=== PATIENT | female | born 1935 | race Caucasian/White ===

== ENCOUNTER 2018-08-19 18:35 | Emergency (ER) | payer MEDICARE, OTHER, SELFPAY ==
[2018-08-19 18:41] VITALS: BP 103/61; PULSE 72; RESP 18; TEMP 36.6; O2SAT 94
--- NOTE | 2018-08-19 18:50 | DI.CT.S_ITS ---
PROCEDURE: CT CERVICAL SPINE WO CON INDICATIONS: intoxicated with fall] TECHNIQUE: Noncontrast 3 mm thick sections acquired from the skull base to the T4 level. Sagittal and coronal reformats were then constructed. For radiation dose reduction, the following was used: automated exposure control, adjustment of mA and/or kV according to patient size. COMPARISON: [facility], CERVICAL SPINE 2 OR 3 VIEWS, 02/23/2017, 11:43. FINDINGS: Image quality: Excellent. Bones: No fractures or dislocations. There is severe degenerative disc disease in cervical spine. Visualized superior ribs are intact. Soft tissues: Prevertebral soft tissues are normal in thickness. No paravertebral hematomas. No apical pneumothoraces. Opacification of the right maxillary sinus consistent with sinusitis. IMPRESSION: No fractures. Severe degenerative disc cisting cervical spine. Dictated by: Jf Patel M.D. on 08/19/2018 at 20:11 Approved by: Jf Patel M.D. on 08/19/2018 at 20:16
--- NOTE | 2018-08-19 18:50 | DI.CT.S_ITS ---
PROCEDURE: CT HEAD/BRAIN WO CON INDICATIONS: intoxicated with fall TECHNIQUE: Noncontrast 4.5 mm thick angled axial sections acquired from the foramen magnum to the vertex, with coronal and sagittal reformats. For radiation dose reduction, the following was used: automated exposure control, adjustment of mA and/or kV according to patient size. COMPARISON: [facility], MR, STROKE PROTOCOL, 02/20/2017, 14:19. [facility], CT, HEAD WITHOUT CONTRAST, 02/20/2017, 12:49. [facility], CT, HEAD WITHOUT CONTRAST, 02/22/2017, 10:53. FINDINGS: Image quality: Excellent. CSF spaces: Basal cisterns are patent. No extra-axial fluid collections. The ventricles are symmetrically dilated but stable in size and shape. Brain: No intracranial bleeds or masses. There is cerebral volume loss for age, with resultant ventricular and sulcal prominence. There are periventricular and deep white matter chronic small vessel ischemic changes. There is intracranial internal carotid artery atherosclerosis. Skull and face: Calvarium and visualized facial bones appear intact, without suspicious lesions. There is right frontal scalp contusion. Sinuses: The mastoids are clear. The right maxillary sinus is opacified. IMPRESSION: 1. No acute intracranial abnormalities. 2. Cerebral volume loss and chronic microvascular ischemic changes. 3. Right frontal scalp contusion. 4. Right maxillary sinus opacification consistent with sinusitis. Dictated by: Jf Patel M.D. on 08/19/2018 at 20:08 Approved by: Jf Patel M.D. on 08/19/2018 at 20:11
--- NOTE | 2018-08-19 19:21 | ED_ITS ---
HPI - Fall General Chief Complaint: Fall Stated Complaint: Fall hit right side of head, arm, and ankle Time Seen by Provider: 08/19/18 19:20 Source: patient and family Mode of arrival: ambulatory Limitations: no limitations History of Present Illness HPI Narrative: 82-year-old female who arrived to the emergency department by private vehicle with friends for reports of a fall. Patient is intoxicated. She does admit to drinking alcohol. She states that she drinks alcohol on a daily basis. His reported that she fell at home. It was unwitnessed. Her friends state that she has fallen in the past and most the time it is when she is drinking. She did have a bump on the right side of her head and also a skin tear on her right elbow and abrasion on her right ankle. Patient was ambulatory. A cervical collar was placed in triage. Related Data Home Medications Medication Instructions Recorded Confirmed multivitamin [Multiple Vitamins] 1 tab PO QDAY #0 08/13/16 06/27/18 lisinopril 10 mg tablet 10 mg PO DAILY 06/27/18 Previous Rx's Medication Instructions Recorded acetaminophen 325 - 650 mg PO Q6HP PRN 30 Days #0 02/26/17 estradiol 0.01% (0.1 mg/gram) See Rx Instructions VAG BEDTIME 03/25/18 vaginal cream #42.5 gram diphenoxylate-atropine 2.5 1 tab PO Q6HP PRN #120 tab 04/27/18 mg-0.025 mg tablet acyclovir 400 mg tablet 400 mg PO DAILY PRN #30 tab 06/27/18 ciprofloxacin 500 mg tablet 500 mg PO Q12H #20 tab 06/27/18 diazepam 5 mg tablet 5 mg PO BEDTIME PRN #30 tab 06/27/18 escitalopram 10 mg tablet 15 mg PO DAILY #135 tab 06/27/[address] - ER 3 mg 9 mg PO DAILY #90 each 07/13/18 capsule,delayed,extended release bupropion HCl XL 150 mg 24 hr 150 mg PO BID #180 tab 07/20/18 tablet, extended release Allergies Allergy/AdvReac Type Severity Reaction Status Date / Time No Known Drug Allergies Allergy Unverified 06/27/18 10:15 Review of Systems Constitutional Denies fever(s) and Denies headache(s) ENT Ears, Nose, Mouth, and Throat: Denies vertigo, Denies dizziness and Denies headache(s) Cardiovascular Denies chest pain and Denies dyspnea Respiratory Denies dyspnea Gastrointestinal Gastrointestinal: Denies abdominal pain, Denies nausea and Denies vomiting Musculoskeletal Denies myalgias and Denies arthralgias Integumentary/Breasts Comments: Right elbow skin tear and abrasion to right elbow bruise to right forehead Neurologic Denies vertigo, Denies dizziness and Denies headache(s) Hematologic/Lymphatic Denies easy bleeding and Denies easy bruising Exam Initial Vital Signs Initial Vital Signs: Vital Signs Temperature 97.9 F 08/19/18 18:41 Pulse Rate 72 08/19/18 18:41 Respiratory Rate 18 08/19/18 18:41 Blood Pressure 103/61 08/19/18 18:41 Pulse Oximetry 94 08/19/18 18:41 Const General: cooperative, comfortable, well developed, well groomed and No acute distress Orientation: alert and awake HENMS Head: other (Bruise to the right forehead) Eyes Pupils: PERRL EOM: EOM intact bilaterally Resp Effort & Inspection: normal respiratory effort Auscultation: clear to auscultation bilaterally Cardio Rate: regular rate Rhythm: regular rhythm GI Inspection: non-distended Palpation: soft Skin Other: Bruise to the right forehead. A small skin tear to the lateral aspect of the right elbow. A small abrasion to the lateral malleolus of the right ankle Neuro General: alert and awake Speech: speech normal Gait: normal gait Motor: muscle tone normal throughout Sensory Exam: no sensory deficits noted Extrem General: normal to inspection and capillary refill normal Other: Full range of motion of upper and lower extremities t Psych Appearance: grossly normal and well kempt [facility] Medical History Breast cancer (Chronic ~2001) Collagenous colitis (Chronic ~2003) Depression (Chronic ~1999) Fecal incontinence (Chronic ~1999) Headache (Chronic) Osteoarthritis (Chronic) Osteopenia (Chronic) Osteoporosis (Chronic) Recurrent sinusitis (Chronic) Seasonal allergies (Chronic) Chicken pox (Resolved) Measles (Resolved) Mumps (Resolved) Social History Smoking Status: Never smoker second hand exposure: No alcohol intake: current (2 glasses of wine a day.) substance use type: does not use Social History Smoking Status: Never smoker second hand exposure: No alcohol intake: current (2 glasses of wine a day.) substance use type: does not use Course Orders Ordered: ED Orders 08/19/18 18:50 CT cervical spine wo con Stat CT head/brain wo con Stat EKG-12 Lead Stat Vital Signs - 8 hr 08/19/18 18:41 08/19/18 19:48 08/19/18 20:35 Temperature 97.9 F Pulse Rate 72 67 73 Respiratory Rate 18 15 15 Blood Pressure 103/61 Blood Pressure [Left Arm] 108/67 105/53 L Pulse Oximetry 94 97 96 MDM - Fall Imaging Data CT scan - head: Radiologist's impression: [address] [address] [address] Scan Report Signed Patient: Concepcion Berumen MMR#: [id number] : 8Acct:[id number] Age/Sex: 82 / FDate of Service: 08/19/18 Loc: ED Accession Number: [id number] Procedure: CT head/brain wo con Ordering Provider: Jose Fragoso D.O. PROCEDURE: CT HEAD/BRAIN WO CON INDICATIONS: intoxicated with fall TECHNIQUE: Noncontrast 4.5 mm thick angled axial sections acquired from the foramen magnum to the vertex, with coronal and sagittal reformats. For radiation dose reduction, the following was used: automated exposure control, adjustment of mA and/or kV according to patient size. COMPARISON: [facility], MR, STROKE PROTOCOL, 02/20/2017, 14:19. [facility], CT, HEAD WITHOUT CONTRAST, 02/20/2017, 12:49. [facility], CT, HEAD WITHOUT CONTRAST, 02/22/2017, 10:53. FINDINGS: Image quality: Excellent. CSF spaces: Basal cisterns are patent. No extra-axial fluid collections. The ventricles are symmetrically dilated but stable in size and shape. Brain: No intracranial bleeds or masses. There is cerebral volume loss for age, with resultant ventricular and sulcal prominence. There are periventricular and deep white matter chronic small vessel ischemic changes. There is intracranial internal carotid artery atherosclerosis. Skull and face: Calvarium and visualized facial bones appear intact, without suspicious lesions. There is right frontal scalp contusion. Sinuses: The mastoids are clear. The right maxillary sinus is opacified. IMPRESSION: 1. No acute intracranial abnormalities. 2. Cerebral volume loss and chronic microvascular ischemic changes. 3. Right frontal scalp contusion. 4. Right maxillary sinus opacification consistent with sinusitis. Dictated by: Jf Patel M.D. on 08/19/2018 at 20:08 Approved by: Jf Patel M.D. on 08/19/2018 at 20:11 CT cervical spine: Radiologist's impression: [place] [address] CT Scan Report Signed Patient: Concepcion Berumen MMR#: [id number] : 8Acct:[id number] Age/Sex: 82 / FDate of Service: 08/19/18 Loc: ED Accession Number: [id number] Procedure: CT cervical spine wo con Ordering Provider: Jose Fragoso D.O. PROCEDURE: CT CERVICAL SPINE WO CON INDICATIONS: intoxicated with fall] TECHNIQUE: Noncontrast 3 mm thick sections acquired from the skull base to the T4 level. Sagittal and coronal reformats were then constructed. For radiation dose reduction, the following was used: automated exposure control, adjustment of mA and/or kV according to patient size. COMPARISON: [facility], CERVICAL SPINE 2 OR 3 VIEWS, 02/23/2017, 11:43. FINDINGS: Image quality: Excellent. Bones: No fractures or dislocations. There is severe degenerative disc disease in cervical spine. Visualized superior ribs are intact. Soft tissues: Prevertebral soft tissues are normal in thickness. No paravertebral hematomas. No apical pneumothoraces. Opacification of the right maxillary sinus consistent with sinusitis. IMPRESSION: No fractures. Severe degenerative disc cisting cervical spine. Dictated by: Jf Patel M.D. on 08/19/2018 at 20:11 Approved by: Jf Patel M.D. on 08/19/2018 at 20:16 ECG Data Attestation: I personally reviewed and interpreted this ECG as follows: Prior ECG tracings: not available for review Interpretation: Sinus rhythm Ventricular rate is 66 Left axis deviation Normal QRS Normal QTC No ST T wave changes MDM Narrative Medical decision making narrative: Patient is obviously intoxicated. Cervical collar was removed after the negative CT scan. She does have a skin tear to her right elbow which did needs no intervention here in the ER. Has a small abrasion to the right ankle which also needs no intervention. She is moving all 4 extremities. She does have a ride home with her friend who is at bedside. She was informed that she cannot drive. She expressed understanding and agreement plan. Discharge Plan Departure Patient Disposition: Home Clinical Impression: Abrasion of skin, Skin tear Contusion of head Qualifiers: Encounter type: initial encounter Contusion of head detail: scalp Qualified Code(s): S00.03XA - Contusion of scalp, initial encounter Alcohol intoxication Qualifiers: Complication of substance-induced condition: uncomplicated Qualified Code(s): F10.920 - Alcohol use, unspecified with intoxication, uncomplicated Fall Qualifiers: Encounter type: initial encounter Qualified Code(s): W19.XXXA - Unspecified fall, initial encounter Discharge Date/Time: 08/19/18 21:31 Interventions: ED Discharge Assessment Last Done: 08/19/18 21:29 Instructions: Contusion, Concussion, DI for Alcohol Abuse Activity Restrictions/Additional Instructions: You can shower like normal. You can sleep and eat like normal. Keep the wounds on your right elbow and ankle clean with soap and water. No driving for the next 24 hours or in the future if you partake in intoxicating substances. Call your primary care doctor for a follow-up. Prescriptions: No Action diphenoxylate-atropine 2.5-0.025 mg tablet 1 tab PO Q6HP PRN (Reason: diarrhea) Qty: 120 RF: 3 escitalopram oxalate 10 mg tablet 15 mg PO DAILY Qty: 135 RF: 1 acyclovir 400 mg tablet 400 mg PO DAILY PRN (Reason: recurrent sacral herpes) Qty: 30 RF: 1 ciprofloxacin HCl 500 mg tablet 500 mg PO Q12H Qty: 20 RF: 0 lisinopril 10 mg tablet 10 mg PO DAILY RF: 0 diazepam 5 mg tablet 5 mg PO BEDTIME PRN (Reason: insomnia) Qty: 30 RF: 0 multivitamin [Multiple Vitamins] 1 EACH tablet 1 tab PO QDAY Qty: 0 RF: 0 acetaminophen 325 MG tablet 325 - 650 mg PO Q6HP PRN30 Days Qty: 0 RF: 0 estradiol 0.01 % (0.1 mg/gram) cream See Rx Instructions VAG BEDTIME Qty: 42.5 RF: 3 budesonide 3 mg capsule,delayed,extend.release 9 mg PO DAILY Qty: 90 RF: 3 bupropion HCl 150 mg tablet extended release 24 hr 150 mg PO BID Qty: 180 RF: 3 Referrals: Kelli James PA-C [Primary Care Provider] -
[2018-08-19 19:48] VITALS: BP 108/67; PULSE 67; RESP 15; O2SAT 97
[2018-08-19 20:35] VITALS: BP 105/53; PULSE 73; RESP 15; O2SAT 96
== END 2018-08-19 21:31 | disposition home or self-care (01) ==
PROVIDERS: Emergency Provider Emergency Medicine; PCP Physician Assistant
DX: S00.03XA Contusion of scalp, initial encounter (principal); S90.511A Abrasion, right ankle, initial encounter; S51.011A Laceration without foreign body of right elbow, initial encounter; F10.920 Alcohol use, unspecified with intoxication, uncomplicated; W19.XXXA Unspecified fall, initial encounter
CPT/HCPCS: 70450; 72125; 93005; 99283; 99284

== ENCOUNTER 2019-06-01 10:44 | Emergency (ER) | payer MEDICARE, OTHER, SELFPAY ==
--- NOTE | 2019-06-01 10:46 | DI.RAD.S_ITS ---
PROCEDURE: XR SHOULDER RT MIN 2V INDICATIONS: fall 3 days ago TECHNIQUE: 2 views of the shoulder were acquired. COMPARISON: None. FINDINGS: Bones: There is a mild comminuted fracture of the right humeral head and neck. There is associated mild impaction of the humeral shaft component. No definite extension to the articular surface of the glenohumeral joint. Deformity of the distal clavicle is noted compatible with sequela of a prior fracture. Visualized ribs appear intact. Soft tissues: No suspicious soft tissue calcifications. There are multiple surgical clips in the right chest wall. IMPRESSION: 1. Mildly impacted and comminuted fracture of the right humeral head and neck. Dictated by: Edward Jones M.D. on 06/01/2019 at 12:25 Approved by: Edward Jones M.D. on 06/01/2019 at 12:37
--- NOTE | 2019-06-01 10:52 | DI.CT.S_ITS ---
PROCEDURE: CT HEAD/BRAIN WO CON INDICATIONS: fall a few days ago TECHNIQUE: Noncontrast 4.5 mm thick angled axial sections acquired from the foramen magnum to the vertex, with coronal and sagittal reformats. For radiation dose reduction, the following was used: automated exposure control, adjustment of mA and/or kV according to patient size. COMPARISON: [facility], CT, HEAD WITHOUT CONTRAST, 02/22/2017, 10:53. [facility], CT, HEAD WITHOUT CONTRAST, 02/20/2017, 12:49. [facility], CT, CT HEAD/BRAIN WO CON, 08/19/2018, 19:15. [facility], CT, CT FACIAL BONES WO CON, 06/01/2019, 11:19. FINDINGS: Image quality: Excellent. CSF spaces: Basal cisterns are patent. No extra-axial fluid collections. The ventricles are dilated but symmetric in size and shape. Ventricular dilatation appears stable since 2006. Brain: No intracranial bleeds or masses. There is moderate cerebral volume loss for age, with resultant ventricular and sulcal prominence. There are [id number] periventricular and deep white matter chronic small vessel ischemic changes. There is intracranial internal carotid artery atherosclerosis. Skull and face: Calvarium and visualized facial bones appear intact, without suspicious lesions. Mild right frontal scalp contusion. Sinuses: Trace fluid or mild mucosal thickening in the dependent right extra sinus. The mastoids are clear. IMPRESSION: 1. No acute intracranial abnormalities. 2. Cerebral volume loss and chronic microvascular ischemic changes. 3. Ventricular dilation may be secondary to central atrophy. A differential diagnosis is normal pressure hydrocephalus. Recommend clinical correlation. Dictated by: Jf Patel M.D. on 06/01/2019 at 11:40 Approved by: Jf Patel M.D. on 06/01/2019 at 11:45
--- NOTE | 2019-06-01 10:55 | ED.GENADULT ---
HPI - General Adult General Chief complaint: Trauma Stated complaint: GLF on Wednesday Right shoulder injury Time Seen by Provider: 06/01/19 10:46 Source: patient and EMS Mode of arrival: EMS Limitations: no limitations History of Present Illness HPI narrative: Patient is an 83-year-old female. Arrived by EMS for evaluation of injuries that she sustained after potentially falling 3 days ago. Patient states that she does not remember falling. Does not remember hitting her head. She is unsure how long she has been on the ground but potentially it has been 3 days. She states that she hurt her shoulder and that is the reason why she could not get up off the floor. This morning she was able to crawl on the floor to the phone. Called her son who called EMS. EMS arrived at the house and did find her on the floor. Bruising around the right shoulder around the right eye. She was alert and oriented upon their arrival. No reports of anticoagulation. Patient's only complaint is right shoulder pain. Related Data Home Medications Medication Instructions Recorded Confirmed multivitamin [Multiple Vitamins] 1 tab PO QDAY #0 08/13/16 06/27/18 lisinopril 10 mg tablet 10 mg PO DAILY 06/27/18 Previous Rx's Medication Instructions Recorded acetaminophen 325 - 650 mg PO Q6HP PRN 30 Days #0 02/26/17 estradiol See Rx Instructions VAG BEDTIME 03/25/18 #42.5 gram acyclovir 400 mg tablet 400 mg PO DAILY PRN #30 tab 06/27/18 bupropion HCl 150 mg 24 hr tablet, 150 mg PO BID #180 tab 09/02/18 extended release diazepam 5 mg tablet 5 mg PO BEDTIME PRN #30 tab 09/05/18 budesonide 3 mg 9 mg PO DAILY #90 each 01/02/19 capsule,delayed,extended release escitalopram oxalate 10 mg tablet 15 mg PO DAILY #135 tab 01/10/19 diphenoxylate-atropine 2.5 1 tab PO Q6HP PRN #120 tab 05/04/19 mg-0.025 mg tablet hydrocodone-acetaminophen [[place]] 1 tab PO Q8H PRN #10 tab 06/01/19 Allergies Allergy/AdvReac Type Severity Reaction Status Date / Time No Known Drug Allergies Allergy Unverified 06/27/18 10:15 Review of Systems Constitutional Constitutional: Denies fatigue, Denies fever(s) and Denies headache(s) Eyes Eyes: Denies change in vision ENT Ears, Nose, Mouth, and Throat: Denies vertigo, Denies dizziness, Denies headache(s) and Denies disequilibrium Cardiovascular Cardiovascular: Denies chest pain, Denies rapid heart rate, Denies edema, Denies palpitations and Denies dyspnea Respiratory Respiratory: Denies cough and Denies dyspnea Gastrointestinal Gastrointestinal: Denies abdominal pain, Denies nausea and Denies vomiting Musculoskeletal Comments: Right shoulder pain Integumentary/Breasts Comments: Bruising around the right eye in the right shoulder Neurologic Neurologic: Denies behavioral changes, Reports confusion, Denies vertigo, Denies dizziness, Denies headache(s), Reports memory loss, Denies paresthesias and Denies disequilibrium Psychiatric Psychiatric: Denies behavioral changes, Reports confusion and Reports memory loss Endocrine Endocrine: Denies fatigue and Denies palpitations Hematologic/Lymphatic Hematologic/Lymphatic: Denies easy bleeding and Denies easy bruising Patient History Medical History Breast cancer (Chronic ~2001) Chicken pox (Resolved) Collagenous colitis (Chronic ~2003) Depression (Chronic ~1999) Fecal incontinence (Chronic ~1999) Headache (Chronic) Measles (Resolved) Mumps (Resolved) Osteoarthritis (Chronic) Osteopenia (Chronic) Osteoporosis (Chronic) Recurrent sinusitis (Chronic) Seasonal allergies (Chronic) Social History Smoking Status: Never smoker second hand exposure: No alcohol intake: current (2 glasses of wine a day.) substance use type: does not use Smoking Status: Never smoker alcohol intake frequency: 3 or more drinks per day Exam Initial Vital Signs Initial Vital Signs: Vital Signs Temperature 97.9 F 06/01/19 11:00 Pulse Rate 65 06/01/19 11:00 Respiratory Rate 18 06/01/19 11:00 Blood Pressure 172/74 H 06/01/19 11:00 Pulse Oximetry 99 06/01/19 11:00 Const General: cooperative, disheveled, No ill appearing and No intoxicated appearing Other: Smells of urine HENMT Head: contusion (Around right eye) Eyes Pupils: PERRL Other: Tenderness to palpation around the right orbital rim Resp Effort & Inspection: normal respiratory effort Auscultation: clear to auscultation bilaterally Cardio Rate: regular rate Rhythm: regular rhythm Pulses: dorsalis pedis present on the right GI Inspection: non-distended Palpation: soft, No firm and No tender Back/Spine/Pelvis Cervical Spine: No collar present and No cervical spinal tenderness Thoracic/Lumbar Spine: No thoracic spinal tenderness and No lumbar spinal tenderness Skin Other: Bruising around the right eye and on the right zoroastrianism. Has significant bruising around the right shoulder and down the right upper arm. Has blanchable redness over her sacrum. Neuro General: alert, awake and oriented x3 Cognition: normal cognition Speech: speech normal Sensory Exam: no sensory deficits noted Extrem Other: Tenderness to palpation with the right shoulder. Right elbow unremarkable. Wrist unremarkable. Pelvis unremarkable. Able to remove both lower extremities without any pain. Left upper extremity unremarkable. Psych Appearance: grossly normal and disheveled Procedures Orthopedic Splinting/Casting Injury #1: Side: right Upper Extremity Injury Location: shoulder Upper Extremity Immobilizer: sling/shoulder immobilizer Post splinting neuro exam: intact Post splinting vascular exam: intact Placed by: Nursing Scores GCS [place] coma scale eye opening: Spontaneous Luma coma scale verbal response: Orientated [place] coma scale motor response: Obey commands Luma coma scale total score: 15 Course Orders Ordered: ED Orders 06/01/19 10:46 XR shoulder RT min 2V Stat 06/01/19 10:47 Urine Drug Screen, Rapid Stat 06/01/19 10:48 EKG-12 Lead Stat 06/01/19 10:52 CT head/brain wo con Stat 06/01/19 10:54 CT facial bones wo con Stat 06/01/19 10:55 XR humerus RT 2V Stat 06/01/19 11:14 Complete Blood Count AUTO DIFF Stat Comprehensive Metabolic Panel Stat Creatine Kinase Stat Ethanol (ETOH) Stat Lipase Stat Magnesium Stat Partial Thromboplastin Time Stat Phosphorous Stat Procalcitonin Stat Prothrombin Time INR Stat 06/01/19 11:51 Consult to [employer] - [employer] Analyst Stat 06/01/19 12:27 XR hand LT min 3V Stat Discontinued Medications Hydrocodone Bitart/Acetaminophen ([place] 5/325) 1 tab PO NOW ONE Stop: 06/01/19 12:24 Last Admin: 06/01/19 12:38 Dose: 1 tab Documented by: SUZYLE Sodium Chloride (Normal Saline 0.9%) 1,000 mls @ 1,000 mls/hr IV BOLUS ONE Stop: 06/01/19 11:45 Last Admin: 06/01/19 11:36 Dose: Not Given Documented by: MANUEL Vital Signs Vital signs: Vital Signs - 8 hr 06/01/19 11:00 06/01/19 11:03 06/01/19 13:57 Temperature 97.9 F Pulse Rate 65 66 74 Respiratory Rate 18 16 15 Blood Pressure 172/74 H 172/74 H Blood Pressure [Left Arm] 146/63 H Pulse Oximetry 99 97 96 Medical Decision Making Lab Data Lab results reviewed: Yes I reviewed the patient's lab results. Result diagrams: 06/01/19 11:14 06/01/19 11:14 Labs: Lab Results 06/01/19 06/01/19 06/01/19 Range/Units 11:14 11:14 11:14 WBC 12.1 H (4.5-11.0) X10^3/uL RBC 4.44 (4.0-5.2) X10^6/uL Hgb 13.6 (12.0-16.0) g/dL Hct 40.9 (36-46) % MCV 92.0 (80-100) fL MCH 30.7 (26-34) PG MCHC 33.4 (30-36) % RDW 13.8 (11.6-14.8) % Plt Count 263 (150-400) X10^3/uL Neut % (Auto) 67.9 (50-75) % Lymph % (Auto) 20.7 L (25-40) % Wilkinson % (Auto) 10.8 (3-14) % Eos % (Auto) 0.2 L (2-4) % Baso % (Auto) 0.4 (0-2) % Neut # (Auto) 8200 H (8315-3577) /uL Lymph # (Auto) 2500 (3692-5830) /uL Wilkinson # (Auto) 1300 H (0-900) /uL Eos # (Auto) 0 (0-450) /uL Baso # (Auto) 0 (0-100) /uL PT 12.8 H (10.1-12.7) SECONDS INR 1.1 (0.9-1.3) APTT 28 (26.4-36.2) SECONDS Sodium 138 (137-145) mmol/L Potassium 3.9 (3.4-5.1) mmol/L Chloride 103 (98-107) mmol/L Carbon Dioxide 26 (22-32) mmol/L BUN 30 H (7-17) mg/dL Creatinine 0.69 (0.52-1.04) mg/dL Estimated GFR > 60.0 (>60) mL/min BUN/Creatinine Ratio 43.5 H (6-22) Glucose 100 (80-110) mg/dL Calcium 9.8 (8.4-10.2) mg/dL Phosphorus (2.8-4.1) mg/dL Magnesium (1.6-2.3) mg/dL Total Bilirubin 0.9 (0.2-1.3) mg/dL AST 40 H (14-36) IU/L ALT 25 (<35) IU/L Alkaline Phosphatase 63 (38-126) U/L Total Creatine Kinase 328 H (30-135) U/L Total Protein 7.2 (6.3-8.2) g/dL Albumin 4.3 (3.5-5.0) g/dL Globulin 2.9 (1.7-4.1) g/dL Albumin/Globulin Ratio 1.5 (1.0-2.8) Lipase 80 (23-300) U/L Procalcitonin (<0.5) ng/mL Ethyl Alcohol ( - 10) mg/dL 06/01/19 06/01/19 Range/Units 11:14 11:14 WBC (4.5-11.0) X10^3/uL RBC (4.0-5.2) X10^6/uL Hgb (12.0-16.0) g/dL Hct (36-46) % MCV (80-100) fL MCH (26-34) PG MCHC (30-36) % RDW (11.6-14.8) % Plt Count (150-400) X10^3/uL Neut % (Auto) (50-75) % Lymph % (Auto) (25-40) % Wilkinson % (Auto) (3-14) % Eos % (Auto) (2-4) % Baso % (Auto) (0-2) % Neut # (Auto) (2508-4600) /uL Lymph # (Auto) (5949-3123) /uL Wilkinson # (Auto) (0-900) /uL Eos # (Auto) (0-450) /uL Baso # (Auto) (0-100) /uL PT (10.1-12.7) SECONDS INR (0.9-1.3) APTT (26.4-36.2) SECONDS Sodium (137-145) mmol/L Potassium (3.4-5.1) mmol/L Chloride (98-107) mmol/L Carbon Dioxide (22-32) mmol/L BUN (7-17) mg/dL Creatinine (0.52-1.04) mg/dL Estimated GFR (>60) mL/min BUN/Creatinine Ratio (6-22) Glucose (80-110) mg/dL Calcium (8.4-10.2) mg/dL Phosphorus 3.3 (2.8-4.1) mg/dL Magnesium 2.0 (1.6-2.3) mg/dL Total Bilirubin (0.2-1.3) mg/dL AST (14-36) IU/L ALT (<35) IU/L Alkaline Phosphatase (38-126) U/L Total Creatine Kinase (30-135) U/L Total Protein (6.3-8.2) g/dL Albumin (3.5-5.0) g/dL Globulin (1.7-4.1) g/dL Albumin/Globulin Ratio (1.0-2.8) Lipase (23-300) U/L Procalcitonin < 0.05 (<0.5) ng/mL Ethyl Alcohol < 10 ( - 10) mg/dL Imaging Data CT scan - head: Radiologist's Impression: [place] [address] CT Scan Report Signed Patient: Concepcion Berumen [facility]#: [id number] : 8Acct:[id number] Age/Sex: 83 / FDate of Service: 06/01/19 Loc: ED Accession Number: [id number] Procedure: CT head/brain wo con Ordering Provider: Jose Fragoso D.O. PROCEDURE: CT HEAD/BRAIN WO CON INDICATIONS: fall a few days ago TECHNIQUE: Noncontrast 4.5 mm thick angled axial sections acquired from the foramen magnum to the vertex, with coronal and sagittal reformats. For radiation dose reduction, the following was used: automated exposure control, adjustment of mA and/or kV according to patient size. COMPARISON: [facility], CT, HEAD WITHOUT CONTRAST, 02/22/2017, 10:53. [facility], CT, HEAD WITHOUT CONTRAST, 02/20/2017, 12:49. [facility], CT, CT HEAD/BRAIN WO CON, 08/19/2018, 19:15. [facility], CT, CT FACIAL BONES WO CON, 06/01/2019, 11:19. FINDINGS: Image quality: Excellent. CSF spaces: Basal cisterns are patent. No extra-axial fluid collections. The ventricles are dilated but symmetric in size and shape. Ventricular dilatation appears stable since 2006. Brain: No intracranial bleeds or masses. There is moderate cerebral volume loss for age, with resultant ventricular and sulcal prominence. There are [id number] periventricular and deep white matter chronic small vessel ischemic changes. There is intracranial internal carotid artery atherosclerosis. Skull and face: Calvarium and visualized facial bones appear intact, without suspicious lesions. Mild right frontal scalp contusion. Sinuses: Trace fluid or mild mucosal thickening in the dependent right extra sinus. The mastoids are clear. IMPRESSION: 1. No acute intracranial abnormalities. 2. Cerebral volume loss and chronic microvascular ischemic changes. 3. Ventricular dilation may be secondary to central atrophy. A differential diagnosis is normal pressure hydrocephalus. Recommend clinical correlation. Dictated by: Jf Patel M.D. on 06/01/2019 at 11:40 Approved by: Jf Patel M.D. on 06/01/2019 at 11:45 CT face: Radiologist's Impression: [place] [address] CT Scan Report Signed Patient: Concepcion Berumne MMR#: [id number] : 8Acct:[id number] Age/Sex: 83 / FDate of Service: 06/01/19 Loc: ED Accession Number: [id number] Procedure: CT facial bones wo con Ordering Provider: Jose Fragoso D.O. PROCEDURE: CT FACIAL BONES WO CON INDICATIONS: right orbit injury after fall TECHNIQUE: Noncontrast 2.5 mm thick axial images acquired from the mandible through the frontal sinuses, with coronal and sagittal reformatting. For radiation dose reduction, the following was used: automated exposure control, adjustment of mA and/or kV according to patient size. COMPARISON: [facility], CT, HEAD WITHOUT CONTRAST, 02/20/2017, 12:49. [facility], CT, HEAD WITHOUT CONTRAST, 02/21/2017, 7:59. [facility], CT, HEAD WITHOUT CONTRAST, 02/22/2017, 10:53. [facility], CT, CT HEAD/BRAIN WO CON, 06/01/2019, 11:19. [facility], CT, CT HEAD/BRAIN WO CON, 08/19/2018, 19:15. FINDINGS: Image quality: Excellent. Bones and teeth: Nondisplaced left nasal bone fracture of uncertain chronicity. The nasal septum is intact. Orbital doe are intact. Sinus doe show no fracture or deformity. Visualized portions of the mandible demonstrate no fractures or subluxation. Zygomatic arches are intact. Pterygoid plates are intact. Visualized portions of the skull base and auditory canals are intact. Sinuses: Mild right maxillary sinus mucosal thickening. Mastoid air cells are aerated. Soft tissues: There is right frontal soft tissue contusion. No masses or fluid collections. No enlarged lymph nodes. No soft tissue lacerations or debris. Vascular: Visualized vascular structures appear normal in the absence of contrast. Bony vascular foramina and canals are intact. IMPRESSION: 1. Nondisplaced left nasal bone fracture of uncertain chronicity. 2. Mild right maxillary sinus disease. Dictated by: Jf Patel M.D. on 06/01/2019 at 11:45 Approved by: Jf Patel M.D. on 06/01/2019 at 11:50 XR humerus: Radiologist's Impression: [address] [address] XRay Report Signed Patient: Concepcion Berumen MMR#: [id number] : 8Acct:[id number] Age/Sex: 83 / FDate of Service: 06/01/19 Loc: ED Accession Number: [id number] Procedure: XR humerus RT 2V Ordering Provider: Jose Fragoso D.O. PROCEDURE: XR HUMERUS RT 2V INDICATIONS: pain after fall TECHNIQUE: 2 views of the humerus were acquired. COMPARISON: None. FINDINGS: Bones: There is a mildly comminuted fracture of the right humeral head and neck. There is mild proximal impaction of the humeral shaft component. No definite extension to the articular surface. There is deformity of the distal clavicle compatible with sequela of a prior fracture. Soft tissues: Multiple surgical clips are demonstrated within the right chest wall. IMPRESSION: 1. Mildly comminuted and impacted fracture of the right humeral head and neck. Dictated by: Edward Jones M.D. on 06/01/2019 at 12:00 Approved by: Edward Jones M.D. on 06/01/2019 at 12:08 Extremity x-ray #1: Radiologist's Impression: [place] [address] XRay Report Signed Patient: Concepcion Berumen [facility]#: [id number] : 8At:[id number] Age/Sex: 83 / FDate of Service: 06/01/19 Loc: ED Accession Number: [id number] Procedure: XR shoulder RT min 2V Ordering Provider: Jose Fragoso D.O. PROCEDURE: XR SHOULDER RT MIN 2V INDICATIONS: fall 3 days ago TECHNIQUE: 2 views of the shoulder were acquired. COMPARISON: None. FINDINGS: Bones: There is a mild comminuted fracture of the right humeral head and neck. There is associated mild impaction of the humeral shaft component. No definite extension to the articular surface of the glenohumeral joint. Deformity of the distal clavicle is noted compatible with sequela of a prior fracture. Visualized ribs appear intact. Soft tissues: No suspicious soft tissue calcifications. There are multiple surgical clips in the right chest wall. IMPRESSION: 1. Mildly impacted and comminuted fracture of the right humeral head and neck. Dictated by: Edward Jones M.D. on 06/01/2019 at 12:25 Approved by: Edward Jones M.D. on 06/01/2019 at 12:37 Extremity x-ray #2: Radiologist's Impression: [place] [address] XRay Report Signed Patient: Concepcion Berumen [facility]#: [id number] : 8Acct:[id number] Age/Sex: 83 / FDate of Service: 06/01/19 Loc: ED Accession Number: [id number] Procedure: XR hand LT min 3V Ordering Provider: Jose Fragoso D.O. PROCEDURE: XR HAND LT MIN 3V INDICATIONS: thumb pain and bruising after fall TECHNIQUE: 3 views of the hand(s) acquired. COMPARISON: None. FINDINGS: Bones: No fractures or dislocations. Carpal bones are normally aligned. No suspicious bony lesions. Severe radiocarpal and first carpometacarpal joint degeneration. Osteopenia. Soft tissues: No suspicious soft tissue calcifications. IMPRESSION: 1. No fracture. 2. 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 3. Osteopenia. Dictated by: Jf Patel M.D. on 06/01/2019 at 13:05 Approved by: Jf Patel M.D. on 06/01/2019 at 13:12 ECG Data Attestation: I personally reviewed and interpreted this ECG as follows: Prior ECG tracings: not available for review Interpretation: Sinus rhythm Ventricular rate of 63 Normal axis Normal QRS Normal QTC Nonspecific ST T wave changes MDM Narrative Medical decision making narrative: Patient was alert oriented upon arrival. Bruising around the right eye to the right shoulder. X-ray shows a proximal right humerus fracture. She was placed in a sling and given medicines for this. Alcohol level was 0. CK was unremarkable. Low suspicion for rhabdo. I do suspect that patient fell while drinking alcohol. The bruising around her right eye in her right shoulder do appear to be somewhat older although I am unsure exactly when this happened. It could very well happened a couple days ago. Patient does have a friend at bedside. Was seen by social work. Will send home with a sling. With follow-up instructions. With care instructions. Pain medications. She was instructed that she should not drink while taking the pain medication. Patient was safe going home. Was asking to go home. She expressed understanding and agreement Discharge Plan Departure Patient Disposition: Home Clinical Impression: Fracture of proximal end of humerus Qualifiers: Encounter type: initial encounter Fracture type: closed Fracture morphology: unspecified fracture morphology Laterality: right Qualified Code(s): S42.201A - Unspecified fracture of upper end of right humerus, initial encounter for closed fracture Contusion of eye, right Qualifiers: Encounter type: initial encounter Qualified Code(s): S05.11XA - Contusion of eyeball and orbital tissues, right eye, initial encounter Fall Qualifiers: Encounter type: initial encounter Qualified Code(s): W19.XXXA - Unspecified fall, initial encounter Discharge Date/Time: 06/01/19 14:31 Instructions: How to Use a Sling, DI for Shoulder Fracture, How to Prevent Falls Activity Restrictions/Additional Instructions: Use the sling like we discussed. I do recommend that you contact your primary care doctor's office to schedule a follow-up. I also recommend that you contact the [facility] group at [phone]. Use the medication as needed. Remember that this medication can make you drowsy. Do not drink alcohol while taking this medication. Return to the emergency department for any new or worsening symptoms. Your medication was electronically transmitted to [facility]. Prescriptions: New hydrocodone-acetaminophen [[place]] 5-325 mg tablet 1 tab PO Q8H PRN (Reason: pain) Qty: 10 RF: 0 No Action acyclovir 400 mg tablet 400 mg PO DAILY PRN (Reason: recurrent sacral herpes) Qty: 30 RF: 1 lisinopril 10 mg tablet 10 mg PO DAILY RF: 0 multivitamin [Multiple Vitamins] 1 EACH tablet 1 tab PO QDAY Qty: 0 RF: 0 acetaminophen 325 MG tablet 325 - 650 mg PO Q6HP PRN30 Days Qty: 0 RF: 0 estradiol 0.01 % (0.1 mg/gram) cream See Rx Instructions VAG BEDTIME Qty: 42.5 RF: 3 bupropion HCl 150 mg tablet extended release 24 hr 150 mg PO BID Qty: 180 RF: 3 diazepam 5 mg tablet 5 mg PO BEDTIME PRN (Reason: insomnia) Qty: 30 RF: 0 budesonide 3 mg capsule,delayed,extend.release 9 mg PO DAILY Qty: 90 RF: 3 escitalopram oxalate 10 mg tablet 15 mg PO DAILY Qty: 135 RF: 1 diphenoxylate-atropine 2.5-0.025 mg tablet 1 tab PO Q6HP PRN (Reason: diarrhea) Qty: 120 RF: 0 Referrals: Kelli James PA-C [Primary Care Provider] -
[2019-06-01 11:00] VITALS: BP 172/74; PULSE 65; RESP 18; TEMP 36.6; O2SAT 99; BMI 19.9
[2019-06-01 11:03] VITALS: BP 172/74; PULSE 66; RESP 16; O2SAT 97
[2019-06-01 11:22] LABS: Add Manual Diff / Slide Review NO; Basophils Absolute Auto 0 /uL (0-100); Basophils Percent Auto 0.4 % (0-2); Eosinophils Absolute Auto 0 /uL (0-450); Eosinophils Percent Auto 0.2 % (2-4); Hematocrit 40.9 % (36-46); Hemoglobin 13.6 g/dL (12.0-16.0); Lymphocytes Absolute Auto 2500 /uL (1100-4500); Lymphocytes Percent Auto 20.7 % (25-40); Mean Corpuscular HGB Conc 33.4 % (30-36); Mean Corpuscular Hemoglobin 30.7 PG (26-34); Monocytes Absolute Auto 1300 /uL (0-900); Monocytes Percent Auto 10.8 % (3-14); Neutrophils Absolute Auto 8200 /uL (1500-7000); Neutrophils Percent Auto 67.9 % (50-75); Platelet Count 263 X10^3/uL (150-400); Red Blood Cell Count 4.44 X10^6/uL (4.0-5.2); Red Cell Distribution Width 13.8 % (11.6-14.8); White Blood Cell Count 12.1 X10^3/uL (4.5-11.0)
[2019-06-01 11:27] LABS: INR 1.1 (0.9-1.3); Prothrombin Time 12.8 SECONDS (10.1-12.7)
[2019-06-01 11:30] LABS: PTT Partial Thromboplastin Tim 28 SECONDS (26.4-36.2)
[2019-06-01 11:33] LABS: Alanine Aminotransferase 25 IU/L (<35); Albumin 4.3 g/dL (3.5-5.0); Albumin Globulin Ratio 1.5 (1.0-2.8); Alkaline Phosphatase 63 U/L (38-126); Aspartate Aminotransferase 40 IU/L (14-36); BUN Creatinine Ratio 43.5 (6-22); Bilirubin Total 0.9 mg/dL (0.2-1.3); Blood Urea Nitrogen 30 mg/dL (7-17); Calcium 9.8 mg/dL (8.4-10.2); Carbon Dioxide 26 mmol/L (22-32); Chloride 103 mmol/L (98-107); Creatine Kinase 328 U/L (30-135); Estimated Glomerular Filt Rate > 60.0 mL/min (>60); Globulin 2.9 g/dL (1.7-4.1); Glucose 100 mg/dL (80-110); HEMOLYSIS < 15 (0-50); Lipase 80 U/L (23-300); Potassium 3.9 mmol/L (3.4-5.1); Sodium 138 mmol/L (137-145); Total Protein 7.2 g/dL (6.3-8.2)
[2019-06-01 11:34] LABS: Ethanol (ETOH) < 10 mg/dL; Phosphorous 3.3 mg/dL (2.8-4.1)
[2019-06-01 11:56] LABS: Procalcitonin < 0.05 ng/mL (<0.5)
--- NOTE | 2019-06-01 12:27 | DI.RAD.S_ITS ---
PROCEDURE: XR HAND LT MIN 3V INDICATIONS: thumb pain and bruising after fall TECHNIQUE: 3 views of the hand(s) acquired. COMPARISON: None. FINDINGS: Bones: No fractures or dislocations. Carpal bones are normally aligned. No suspicious bony lesions. Severe radiocarpal and first carpometacarpal joint degeneration. Osteopenia. Soft tissues: No suspicious soft tissue calcifications. IMPRESSION: 1. No fracture. 2. 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 3. Osteopenia. Dictated by: Jf Patel M.D. on 06/01/2019 at 13:05 Approved by: Jf Patel M.D. on 06/01/2019 at 13:12
--- NOTE | 2019-06-01 12:36 | CM.SWNOTE ---
CLOUD SYSTEMS ARCHITECT note CLOUD SYSTEMS ARCHITECT attempted visit with patient. Patient was being taken to x-ray when CLOUD SYSTEMS ARCHITECT walked in. CLOUD SYSTEMS ARCHITECT will attempt again before 1330. OSWALDO Carroll
[2019-06-01] MEDS: HYDROCODONE/ACET 5/325 TABLET 1 TAB PO (12:38)
--- NOTE | 2019-06-01 13:55 | CM.SWNOTE ---
BANKING ANALYST note BANKING ANALYST requested to consult with patient. Patient is a 83 y/o female who presents to the ED after a fall. Patient reports that she was on the ground for 3 or 4 days before getting to the phone. Patient said she called her son, who called EMS. Patient was brought to ED by EMS. BANKING ANALYST met with patient and friend, Shadi, who was present in room. BANKING ANALYST explained hospice social worker role and asked patient what had happened. Patient explained that she had fallen and that she had been unable to get off of the ground for 3-4 days. Patient says she has no memory of the fall and does not remember events leading up to the fall. BANKING ANALYST asked about patient's living situation. Patient reports living alone and that she usually has no difficulty in navigating her apartment. Patient reports that her friend, Shadi (present in ED with patient), lives with her part-time/whenever he's in town. Patient states that Shadi will be staying with her until she recovers from this fall. BANKING ANALYST asked more about fall. Patient reports that she had never had a fall this significant before, and that she does well overall. BANKING ANALYST noted that she had been on the ground 3-4 days, and asked if she had ever considered getting any emergency alert system. Patient dismissed the idea, and informed BANKING ANALYST that her son had gotten one for her before, but that she stopped using it soon after she got it. Patient expressed opposition to [employer] during meeting. As BANKING ANALYST and patient discussed recent fall and potential ways to prevent patient from having to wait days for help, patient offered that she would be interested in paying someone to live with [her]. Patient continued to explain that she did not want someone there 05/10, but wanted to have someone who would be there at set hours. BANKING ANALYST offered to provide patient with resources and phone numbers for private caregiving, and patient accepted. BANKING ANALYST explored patients social support network. Patient has two adult children who live within an hour's drive of patient. Patient said her children are both supportive of patient finding additional assistance at home. Patient said she has many friends who she sees often in town, and describes being active in the local community. Patient demonstrated an understanding of local resources available for seniors and discussed the senior center multiple times throughout conversation. BANKING ANALYST asked about patient's primary care provider. Patient states that she used to see RAFAELA Franklin at [facility], but said that she had not seen a provider and believed that Kelli James had discontinued working at [facility]. BANKING ANALYST asked if patient wanted assistance in setting up an appt. with a new PCP- patient declined. Patient informed BANKING ANALYST that she had friends who take care of that kind of stuff for [her] and that they would help her establish care with a new PCP. BANKING ANALYST assessed for alcohol and GEETA. Patient stated that she does drink, but states that she has not had anything to drink in 4-5 days. When asked how much she drinks, patient reports having a rule 2 drinks and stop when she is drinking outside of her home and with friends. Patient says that she doesn't know exactly how much she usually drinks at home, but estimates that it is 2-3 drinks a night. Patient denies drinking to point of blackout or physical discomfort. When asked how she feels about her drinking, patient said she was starting to think about it, but was not interested in discussing her alcohol use further. Patient denies any use tobacco/marijuana/other substances. BANKING ANALYST assessed for suicidality. Patient denies current or recent suicidality. Patient did say that when she was on the floor prior to coming to ED she thought god, it would be so easy right now. BANKING ANALYST re-asked if patient was thinking about suicide or wanted to and patient said no. BANKING ANALYST asked about homocidality and patient said she had no thoughts of this. Plan: BANKING ANALYST spoke with Dr. Fragoso, and current plan is discharge. Per Dr. Fragoso, patient had been seen up walking around and had gone to the bathroom without assistance. BANKING ANALYST provided patient with resources for private caregiving. OSWALDO Carroll
[2019-06-01 13:57] VITALS: BP 146/63; PULSE 74; RESP 15; O2SAT 96
== END 2019-06-01 14:31 | disposition home or self-care (01) ==
PROVIDERS: Emergency Provider Emergency Medicine; PCP Physician Assistant
DX: S42.201A Unspecified fracture of upper end of right humerus, initial encounter for closed fracture (principal); S05.11XA Contusion of eyeball and orbital tissues, right eye, initial encounter; W19.XXXA Unspecified fall, initial encounter; M79.645 Pain in left finger(s)
CPT/HCPCS: 36415; 70450; 70486; 73030; 73060; 73130; 80053; 80320; 82550; 83690; 83735; 84100; 84145; 85025; 85610; 85730; 93005; 99285

== ENCOUNTER 2019-06-07 12:03 | Emergency (ER) | payer MEDICARE, OTHER, SELFPAY ==
[2019-06-07 12:14] VITALS: BP 147/77; PULSE 72; RESP 18; TEMP 36.9; O2SAT 98
--- NOTE | 2019-06-07 14:50 | ED.RECABL ---
HPI - Recheck/Abnormal Lab/Rx <RAFAELA Dent - Last Filed: 06/07/19 22:09> General Chief Complaint: Recheck/Abnormal Lab/Rx Stated Complaint: R shoulder frature still causing pain Time Seen by Provider: 06/07/19 12:08 Source: patient Mode of arrival: Ambulatory Limitations: no limitations History of Present Illness HPI narrative: This is a 83-year-old female, nonsmoker, who presents to ED with friend in request of pain medications. Patient was seen in ED on 06/01/19 and evaluated for fractured proximal and of humerus due to a fall off her bed and discharged to home with shoulder immobilizer and pain medication Holton #10 tabs. Patient states has not been followed with [facility] orthopedist as of today but followed up with Dr. Evans who was on-call for her previous primary care provider KATHLEEN James and received additional pain medication of Holton #30 tabs on 06/03/19. Patient states when pain gets bad she becomes shaky. Patient reports has been using half tab to 1 tab of Holton averaging every 4-6 hours to manage pain. Patient wanted to be seen in ED to ensure that she is using her sling correctly and to request additional pain medication. Patient reports pain severity has decreased to 6/10 most of the time. Patient has not been using other medications such as Tylenol or ibuprofen/Motrin. Patient reports the swelling on her affected arm/hand has decreased slightly. Patient reports intact sensation and mobility to her fingers. Patient reports has not been drinking alcohol since her injury. Patient denies constipation. Related Data Home Medications Medication Instructions Recorded Confirmed multivitamin [Multiple Vitamins] 1 tab PO QDAY #0 08/13/16 06/27/18 lisinopril 10 mg tablet 10 mg PO DAILY 06/27/18 Previous Rx's Medication Instructions Recorded acetaminophen 325 - 650 mg PO Q6HP PRN 30 Days #0 02/26/17 estradiol See Rx Instructions VAG BEDTIME 03/25/18 #42.5 gram acyclovir 400 mg tablet 400 mg PO DAILY PRN #30 tab 06/27/18 bupropion HCl 150 mg 24 hr tablet, 150 mg PO BID #180 tab 09/02/18 extended release diazepam 5 mg tablet 5 mg PO BEDTIME PRN #30 tab 09/05/18 budesonide 3 mg 9 mg PO DAILY #90 each 01/02/19 capsule,delayed,extended release escitalopram oxalate 10 mg tablet 15 mg PO DAILY #135 tab 01/10/19 diphenoxylate-atropine 2.5 1 tab PO Q6HP PRN #120 tab 05/04/19 mg-0.025 mg tablet hydrocodone 5 mg-acetaminophen 325 1 tab PO Q8H PRN #30 tab 06/03/19 mg tablet hydrocodone-acetaminophen [Holton] 1 tab PO Q8H PRN #15 tab 06/07/19 Allergies Allergy/AdvReac Type Severity Reaction Status Date / Time No Known Drug Allergies Allergy Unverified 06/27/18 10:15 Review of Systems <RAFAELA Dent - Last Filed: 06/07/19 22:09> Review of Systems Narrative: General: Denies fever, chills, fatigue, malaise, sweats. HEENT: Denies sinus pain, ear pain, sore throat, difficulty swallowing, dizziness. Respiratory: Denies dyspnea, cough, wheezing, hemoptysis, sputum. Cardiovascular: Denies chest pain, palpitations, orthopnea, edema. Gastrointestinal: Denies nausea, vomiting, abdominal pain, diarrhea, constipation, melena. : Denies dysuria, frequency, incontinence, hematuria, urinary retention. Musculoskeletal: See HPI Skin: Denies rash, skin lesions, or other. Neurologic: Denies weakness, headache, numbness, change in speech, confusion, seizures, incoordination. Psychiatric: No concerning psychosocial issues. 12-point review of systems is negative except for those stated above. Patient History <RAFAELA Dent - Last Filed: 06/07/19 22:09> Medical History Breast cancer (Chronic ~2001) Chicken pox (Resolved) Collagenous colitis (Chronic ~2003) Depression (Chronic ~1999) Fecal incontinence (Chronic ~1999) Headache (Chronic) Measles (Resolved) Mumps (Resolved) Osteoarthritis (Chronic) Osteopenia (Chronic) Osteoporosis (Chronic) Recurrent sinusitis (Chronic) Seasonal allergies (Chronic) Social History Smoking Status: Never smoker second hand exposure: No alcohol intake: current (2 glasses of wine a day.) substance use type: does not use Smoking Status: Never smoker alcohol intake frequency: 3 or more drinks per day Substance Use Type: does not use Exam <Boni Vallejo RAFAELA - Last Filed: 06/07/19 22:09> Narrative Exam Narrative: General appearance: well developed, well nourished, in no acute distress. Head: normocephalic, atraumatic, no scalp lesions, non-tender. ENT: Hearing grossly intact. Nose without bleeding, purulent discharge. Mucous membrane moist, no mucosal lesion. Throat without erythema, tonsillar hypertrophy or exudate. Uvula in midline, airway patent. Neck/Thyroid: neck supple, full range of motion, no visible masses or meningeal signs. No JVD, non-tender without lymphadenopathy. Skin: no suspicious rashes, lesions over visible areas. Warm and dry and appropriate color for ethnicity. Heart: no clubbing, no cyanosis, no edema. S1 and S2 normal. RRR w/o murmurs, clicks, or bruits. Lungs: Breathing even and unlabored. No stridor. No accessory muscles used. Able to speak in full sentences. Chest: normal shape and expansion. Abdomen: non-obese, non-distended. Neurologic: alert and oriented. Cognitive exam, HE[employer] SANIT[employer] TECH[employer]ICIAN and PNS grossly intact on informal exam. Psych: good eye contact, normal affect. Initial Vital Signs Initial Vital Signs: Vital Signs Temperature 98.4 F 06/07/19 12:14 Pulse Rate 72 06/07/19 12:14 Respiratory Rate 18 06/07/19 12:14 Blood Pressure 147/77 H 06/07/19 12:14 Pulse Oximetry 98 06/07/19 12:14 Extrem Right upper extremity: shoulder/upper arm Details: tenderness, swelling and ecchymosis; no abrasions, no lacerations, no crepitus, no deformity and no unusual warmth and hand Details: normal capillary refill, neuromotor exam normal, neurosensory exam normal, tendon exam normal, vascular exam Details: radial pulse present and normal capillary refill, normal ROM of fingers, swelling and ecchymosis; no tenderness Other: Patient using shoulder immobilizer on right arm <Jose Fragoso DO - Last Filed: 06/08/19 07:01> Initial Vital Signs Initial Vital Signs: Vital Signs Temperature 98.4 F 06/07/19 12:14 Pulse Rate 72 06/07/19 12:14 Respiratory Rate 18 06/07/19 12:14 Blood Pressure 147/77 H 06/07/19 12:14 Pulse Oximetry 98 06/07/19 12:14 Scores <RAFAELA Dent - Last Filed: 06/07/19 22:09> GCS [place] coma scale eye opening: Spontaneous Luma coma scale verbal response: Orientated Luma coma scale motor response: Obey commands [place] coma scale total score: 15 Course <SARBJIT DentP - Last Filed: 06/07/19 22:09> Vital Signs Vital signs: Vital Signs - 8 hr 06/07/19 12:14 Temperature 98.4 F Pulse Rate 72 Respiratory Rate 18 Blood Pressure 147/77 H Pulse Oximetry 98 <Jose Fragoso - Last Filed: 06/08/19 07:01> Vital Signs Vital signs: Vital Signs - 8 hr 06/07/19 12:14 Temperature 98.4 F Pulse Rate 72 Respiratory Rate 18 Blood Pressure 147/77 H Pulse Oximetry 98 [facility] - Recheck/Abnormal Lab/Rx <SARBJIT DentP - Last Filed: 06/07/19 22:09> Differential Diagnosis Differential diagnosis: Likely encounter for medication refill and other (pain secondary to Right proximal humerus fracture) Medical Records Attestation: I reviewed the patient's medical records. [facility] Narrative Medical decision making narrative: This is a 83-year-old female who presents to ED in request of pain medication prescription with history of fracture on proximal and of humerus. Patient reports she has not been using other medications but Holton 1 tab every 4-6 hours. Patient currently using shoulder immobilizer on affected arm for fracture treatment but has not been using correctly. We reviewed correct application of shoulder immobilizer and patient verbalized understanding. I discussed in length with patient to limit using Holton as the sole medication to treat her pain and this medications precautions. Patient advised to use baseline Tylenol and or Motrin as needed and to add Holton occasionally for severe pain or to take it with 1 Tylenol with half to 1 tab of Holton as needed. Patient also advised to exercise right arm to prevent frozen shoulder. Patient has not contacted [facility] orthopedist in patient advised to do so to follow-up and for re-evaluation. Patient verbalized understanding in agreement with the treatment plan. Additional 15 pills of Holton has been transmitted to local pharmacy. Discharge Plan Departure Patient Disposition: Home Clinical Impression: Encounter for medication refill, Pain due to fracture Discharge Date/Time: 06/07/19 13:14 Activity Restrictions/Additional Instructions: You have been diagnosed with [ s/p humeral head fracture and encounter for medication refill for Holton. Instruction how to use sling was reviewed. Please use sling for discomfort and exercise a few times a day to prevent frozen shoulder. You likely need a referral to physical therapist to rehabilitate right arm/shoulder]. What to do: *Take your medications as directed. You can use ibuprofen/Motrin 400 mg at least 3 times a day with food for discomfort. You can take Tylenol up to 4000 mg in 24 hour for an adult. You can use 2 tabs of Tylenol 4 times a day as needed for discomfort. Holton has 325 of Tylenol in a pill with 5 mg of hydrocodone. You can add 1 regular strength of Tylenol with 1 or 0.5 tab of Holton to get there to help ease the pain. You can use Holton about 3 to 4 times a day as needed for severe discomfort. As fracture heals, you will need last narcotic medications to help with the pain. By then, you should use only Tylenol and or Motrin as needed for discomfort. Please do not drink alcohol or operate heavy equipments while on narcotic/muscle relaxant medications. Also, this can cause constipation so please take measures. Holton has been transmitted to [facility]. *Follow up with your primary care provider in 2-3 days, call for an appointment. Please contact [facility] orthopedist as instructed to follow up. Let them know you were seen in the ED and that we asked you to be seen in follow up. Noe Richmond Whilleim works at the same clinic. *Return to ED if you have any new, worsening, or concerning symptoms, such as [increasing pain, numbness/tingling/weakness to affected arm, chest pain, breathing difficulty, unable to tolerate fluids or any acute concerns]. Prescriptions: New hydrocodone-acetaminophen [Holton] 5-325 mg tablet 1 tab PO Q8H PRN (Reason: pain) Qty: 15 RF: 0 No Action acyclovir 400 mg tablet 400 mg PO DAILY PRN (Reason: recurrent sacral herpes) Qty: 30 RF: 1 lisinopril 10 mg tablet 10 mg PO DAILY RF: 0 multivitamin [Multiple Vitamins] 1 EACH tablet 1 tab PO QDAY Qty: 0 RF: 0 acetaminophen 325 MG tablet 325 - 650 mg PO Q6HP PRN30 Days Qty: 0 RF: 0 estradiol 0.01 % (0.1 mg/gram) cream See Rx Instructions VAG BEDTIME Qty: 42.5 RF: 3 bupropion HCl 150 mg tablet extended release 24 hr 150 mg PO BID Qty: 180 RF: 3 diazepam 5 mg tablet 5 mg PO BEDTIME PRN (Reason: insomnia) Qty: 30 RF: 0 budesonide 3 mg capsule,delayed,extend.release 9 mg PO DAILY Qty: 90 RF: 3 escitalopram oxalate 10 mg tablet 15 mg PO DAILY Qty: 135 RF: 1 diphenoxylate-atropine 2.5-0.025 mg tablet 1 tab PO Q6HP PRN (Reason: diarrhea) Qty: 120 RF: 0 hydrocodone-acetaminophen [Holton] 5-325 mg tablet 1 tab PO Q8H PRN (Reason: pain) Qty: 30 RF: 0 Referrals: Kelli James PA-C [Primary Care Provider] - <Jose Fragoso DO - Last Filed: 06/08/19 07:01> Cosign ED Attending [facility] Attestation: Dr Fragoso Co-Sign Statement: I was available for consultation during this patient's emergency department visit. This chart is signed by myself for administrative purposes only. I did not have direct contact with this patient during this visit. They were seen independently by the APC.
== END 2019-06-07 13:14 | disposition home or self-care (01) ==
PROVIDERS: Emergency Provider Nurse Practitioner Family; PCP Physician Assistant
DX: Z76.0 Encounter for issue of repeat prescription (principal); S42.209D Unspecified fracture of upper end of unspecified humerus, subsequent encounter for fracture with routine healing
CPT/HCPCS: 99281

== ENCOUNTER 2021-06-25 11:13 | Emergency (ER) | payer MEDICARE, OTHER, SELFPAY ==
[2021-06-25] VITALS (9 sets, daily range): BP systolic 143–175; BP diastolic 69–81; PULSE 62–71; RESP 13–20; TEMP 36.1; O2SAT 96–100; BMI 20.3
--- NOTE | 2021-06-25 11:48 | DI.CT.S_ITS ---
PROCEDURE: CT HEAD/BRAIN WO CON INDICATIONS: difficulty with words for 3 days TECHNIQUE: Noncontrast 4.5 mm thick angled axial sections acquired from the foramen magnum to the vertex, with coronal and sagittal reformats. For radiation dose reduction, the following was used: automated exposure control, adjustment of mA and/or kV according to patient size. COMPARISON: [facility], CT, CT HEAD/BRAIN WO CON, 06/01/2019, 11:19. FINDINGS: Image quality: Excellent. CSF spaces: Basal cisterns are patent. No extra-axial fluid collections. The ventricles are symmetric in size and shape. Brain: No intracranial bleeds or masses. There is cerebral volume loss for age, with resultant ventricular and sulcal prominence. There are periventricular and deep white matter chronic small vessel ischemic changes. There is intracranial internal carotid artery atherosclerosis. Skull and face: Calvarium and visualized facial bones appear intact, without suspicious lesions. Sinuses: Visualized sinuses and mastoids are clear. IMPRESSION: 1. No acute intracranial process. 2. Moderate to severe atrophy and chronic microvascular ischemic changes. Dictated by: Adrianne Callahan M.D. on 06/25/2021 at 12:15 Approved by: Adrianne Callahan M.D. on 06/25/2021 at 12:15
--- NOTE | 2021-06-25 11:49 | ED_ITS ---
HPI - Neuro Symptoms/Deficit General Chief Complaint: Neuro Symptoms/Deficit Stated Complaint: stated confusion x2 days Time Seen by Provider: 06/25/21 11:35 Source: patient Mode of arrival: Ambulatory History of Present Illness HPI Narrative: Patient is an 85-year-old female with history of alcoholism and depression presenting with difficulty speaking. She is here with her son who states she has had difficulty speaking for 3 days ago. They went out for breakfast. She had a hard time formulating words. He also notes that she had a hard time cutting her food. He did not see her the last 2 days but then spoke to her on the phone today and noticed she still had some difficulty formulating words but was significantly better. Patient says she knows what she wants to say but not always able to get it out. She has not had any following no visual changes. No chest pain or palpitations. Partner reports that he did notice some is changes well but agrees that she has improved. He also admits that she does drink about a bottle of wine nightly. On Anticoagulants: No Related Data Home Medications Medication Instructions Recorded Confirmed multivitamin (Multiple Vitamins) 1 tab PO QDAY #0 08/13/16 10/28/20 Previous Rx's Medication Instructions Recorded estradiol See Rx Instructions VAG BEDTIME 03/25/18 #42.5 gram bupropion HCl 150 mg 24 hr tablet, 150 mg PO BID #180 tab 06/25/20 extended release diazepam 5 mg tablet 5 mg PO BEDTIME PRN #10 tab 10/28/20 escitalopram oxalate 10 mg tablet 15 mg PO DAILY #135 tab 01/17/21 budesonide 3 mg 9 mg PO DAILY #90 each 05/03/21 capsule,delayed,extended release Allergies Allergy/AdvReac Type Severity Reaction Status Date / Time No Known Drug Allergies Allergy Verified 06/25/21 13:16 Review of Systems Review of Systems Narrative: GENERAL: Denies chills, fatigue, malaise, fever, sweats, travel HEENT: Denies sinus pain, ear pain, sore throat, difficulty swallowing, neck pain RESPIRATORY: Denies dyspnea, cough, wheezing, hemoptysis, sputum. CARDIOVASCULAR: Denies chest pain, palpitations, orthopnea, edema GASTROINTESTINAL: Denies nausea, vomiting, abdominal pain, diarrhea, constipation, melena. : Denies dysuria, frequency, incontinence, hematuria, urinary retention, flank pain. MUSCULOSKELETAL: Denies weakness, joint pain, or bony pain SKIN: No rash, no erythema, no pruritus NEUROLOGIC: See HPI PSYCHIATRIC: No concerning psychosocial issues. 12 point review of systems is negative except for those stated above and HPI Hematologic/Lymphatic On Anticoagulants: No Patient History Medical History Breast cancer (~2001) Chicken pox Collagenous colitis (~2003) Depression (~1999) Fecal incontinence (~1999) Headache Measles Mumps Osteoarthritis Osteopenia Osteoporosis Recurrent sinusitis Seasonal allergies Social History Smoking Status: Never smoker second hand exposure: No alcohol intake: current (2 glasses of wine a day.) substance use type: does not use Smoking Status: Never smoker alcohol intake frequency: 3 or more drinks per day Substance Use Type: does not use Exam Initial Vital Signs Initial Vital Signs: Vital Signs Pulse Rate 70 06/25/21 11:21 Blood Pressure 175/81 H 06/25/21 11:21 Pulse Oximetry 98 06/25/21 11:21 GENERAL: Alert 85-year-old female and in no acute distress. HEENT: Head atraumatic,EOMI, pupils reactive, face symmetric, moist mucous membranes CARDIOVASCULAR: Regular rate and rhythm without murmurs, rubs or gallops. RESPIRATORY: Breath sounds equal bilaterally, no wheezes rales or rhonchi. ABDOMEN: Soft, nontender. Normoactive bowel sounds all 4 quadrants. No guarding or rebound. EXTREMITIES: Normal range of motion, no clubbing or edema. Neurovascularly intact NEUROLOGICAL: Alert and oriented x4.Normal gait and speech. Cranial nerves II through XII grossly intact. Good [id number], good [id number], strength equal bilaterally, no dysarthria or aphasia, sensation in tact to soft touch bilaterally, no visual changes, no facial droop SKIN: Warm, dry, no laceration, no petechiae, no rashes or lesions. Scores NIH Stroke Scale Level of Conciousness: Alert, keenly responsive Ask month/age: Answers both questions correctly. Open/close eyes, close hand: Performs both tasks correctly Best gaze horizontal: Normal Visual hamm: No visual loss Facial palsy: Normal symetrical movement Left arm drift: No drift for full 10 sec Right arm drift: No drift for full 10 sec Left leg drift: No drift for full 5 sec Right leg drift: No drift for full 5 sec Limb ataxia: Absent Sensory on face/arms/legs: Normal, no sensory loss Best language: No aphasia, normal Dysarthria: Normal Extinction or inattention: No abnormality Total NIH Stroke scale score: 0 Course Orders Ordered: Discontinued Medications Aspirin (Aspirin 81 Mg Chew Tab) 324 mg PO NOW ONE Stop: 06/25/21 15:25 Last Admin: 06/25/21 15:27 Dose: 324 mg Documented by: HAL Sodium Chloride (Normal Saline 0.9%) 1,000 mls @ 150 mls/hr IV CONT NORBERTO Last Infusion: 06/25/21 15:27 Dose: 0 mls/hr Documented by: Admin: 06/25/21 12:36 Dose: 150 mls/hr Documented by: STEFFI Vital Signs Vital signs: Vital Signs - 8 hr 06/25/21 12:00 06/25/21 12:30 06/25/21 13:00 Pulse Rate 67 63 65 Respiratory Rate 14 15 Blood Pressure 160/74 H 147/79 H 143/70 H Pulse Oximetry 96 98 98 06/25/21 13:30 06/25/21 14:00 06/25/21 15:23 Pulse Rate 66 62 70 Respiratory Rate 17 13 Blood Pressure 174/81 H 154/69 H 162/74 H Pulse Oximetry 97 100 100 MDM - Neuro Symptoms/Deficit Lab Data Result diagrams: 06/25/21 11:38 06/25/21 11:38 Labs: Lab Results 06/25/21 06/25/21 06/25/21 Range/Units 11:38 11:38 11:38 WBC 7.3 (4.5-11.0) X10^3/uL RBC 4.71 (4.0-5.2) X10^6/uL Hgb 14.6 (12.0-16.0) g/dL Hct 42.2 (36-46) % MCV 89.5 (80-100) fL MCH 30.9 (26-34) PG MCHC 34.6 (30-36) % RDW 13.4 (11.6-14.8) % Plt Count 230 (150-400) X10^3/uL Neut % (Auto) 52.6 (50-75) % Lymph % (Auto) 37.1 (25-40) % [place] % (Auto) 8.4 (3-14) % Eos % (Auto) 1.1 L (2-4) % Baso % (Auto) 0.8 (0-2) % Neut # (Auto) 3800 (7324-0857) /uL Lymph # (Auto) 2700 (3958-7910) /uL [place] # (Auto) 600 (0-900) /uL Eos # (Auto) 100 (0-450) /uL Baso # (Auto) 100 (0-100) /uL Sodium 141 (137-145) mmol/L Potassium 4.0 (3.4-5.1) mmol/L Chloride 109 H (98-107) mmol/L Carbon Dioxide 23 (22-32) mmol/L BUN 22 H (7-17) mg/dL Creatinine 0.79 (0.52-1.04) mg/dL Estimated GFR > 60 (>60) mL/min BUN/Creatinine Ratio 27.8 H (6-22) Glucose 87 (80-110) mg/dL Lactate 1.0 (0.7-2.1) mmol/L Calcium 9.7 (8.4-10.2) mg/dL Total Bilirubin 0.6 (0.2-1.3) mg/dL AST 26 (14-36) IU/L ALT 18 (<35) IU/L Alkaline Phosphatase 47 (38-126) U/L Total Creatine Kinase 50 (30-135) U/L CK-MB (CK-2) TNP CK-MB (CK-2) Rel Index TNP Troponin I < 0.012 (0.01-0.034) ng/mL Total Protein 7.1 (6.3-8.2) g/dL Albumin 4.4 (3.5-5.0) g/dL Globulin 2.7 (1.7-4.1) g/dL Albumin/Globulin Ratio 1.6 (1.0-2.8) Procalcitonin (<0.5) ng/mL Ethyl Alcohol < 10 ( - 10) mg/dL 06/25/21 Range/Units 11:40 WBC (4.5-11.0) X10^3/uL RBC (4.0-5.2) X10^6/uL Hgb (12.0-16.0) g/dL Hct (36-46) % MCV (80-100) fL MCH (26-34) PG MCHC (30-36) % RDW (11.6-14.8) % Plt Count (150-400) X10^3/uL Neut % (Auto) (50-75) % Lymph % (Auto) (25-40) % [place] % (Auto) (3-14) % Eos % (Auto) (2-4) % Baso % (Auto) (0-2) % Neut # (Auto) (5434-3193) /uL Lymph # (Auto) (6589-7683) /uL [place] # (Auto) (0-900) /uL Eos # (Auto) (0-450) /uL Baso # (Auto) (0-100) /uL Sodium (137-145) mmol/L Potassium (3.4-5.1) mmol/L Chloride (98-107) mmol/L Carbon Dioxide (22-32) mmol/L BUN (7-17) mg/dL Creatinine (0.52-1.04) mg/dL Estimated GFR (>60) mL/min BUN/Creatinine Ratio (6-22) Glucose (80-110) mg/dL Lactate (0.7-2.1) mmol/L Calcium (8.4-10.2) mg/dL Total Bilirubin (0.2-1.3) mg/dL AST (14-36) IU/L ALT (<35) IU/L Alkaline Phosphatase (38-126) U/L Total Creatine Kinase (30-135) U/L CK-MB (CK-2) CK-MB (CK-2) Rel Index Troponin I (0.01-0.034) ng/mL Total Protein (6.3-8.2) g/dL Albumin (3.5-5.0) g/dL Globulin (1.7-4.1) g/dL Albumin/Globulin Ratio (1.0-2.8) Procalcitonin 0.04 (<0.5) ng/mL Ethyl Alcohol ( - 10) mg/dL Point of Care Testing Glucose POC [address] scan - head: Radiologist's Impression: PROCEDURE:? CT HEAD/BRAIN WO CON ? INDICATIONS:? difficulty with words for 3 days ? TECHNIQUE:? Noncontrast 4.5 mm thick angled axial sections acquired from the foramen magnum to the vertex, with coronal and sagittal reformats.? For radiation dose reduction, the following was used:? automated exposure control, adjustment of mA and/or kV according to patient size.? ? COMPARISON:? [facility], CT, CT HEAD/BRAIN WO CON, 06/01/2019, 11:19. ? FINDINGS:? Image quality:? Excellent.? ? CSF spaces:? Basal cisterns are patent.? No extra-axial fluid collections.? The ventricles are symmetric in size and shape.? ? Brain:? No intracranial bleeds or masses.? There is cerebral volume loss for age, with resultant ventricular and sulcal prominence.? There are periventricular and deep white matter chronic small vessel ischemic changes.? There is intracranial internal carotid artery atherosclerosis.? ? Skull and face:? Calvarium and visualized facial bones appear intact, without suspicious lesions.? ? Sinuses:? Visualized sinuses and mastoids are clear.? ? IMPRESSION:? ? 1. No acute intracranial process. ? 2. Moderate to severe atrophy and chronic microvascular ischemic changes. ? ? ? Dictated by: Adrianne Callahan M.D. on 06/25/2021 at 12:15? MR head: Radiologist's Impression: PROCEDURE:? MR STROKE Pre- and post-contrast brain MRI, non-contrast brain MR angiogram, pre- and postcontrast neck MR angiogram ? INDICATIONS:? difficulty speaking x 4 days symptoms resovled ? TECHNIQUE:? Brain:? Noncontrast axial T1 spin echo, axial T2 fast spin echo, sagittal and axial FLAIR, coronal T2 fast spin echo, axial gradient echo, axial diffusion and ADC t hrough the brain.? After the administration of contrast, axial 3D VIBE of the cranial vasculature and brain.? Brain MRA:? Non-contrast 3-D time of flight MR angiogram, with multiple uiiwbeg-aybpxanst-rfdqbblrfr (MIP) reformats performed.? Neck MRA:? Axial and sagittal TruFISP through the neck.? Coronal dynamic MR angiogram during administration of contrast in the arterial and venous phases, with 3- dimenstional qivobgd-abtnozxms-xszzxidmbo (MIP) reformats constructed from subtraction images.? ? COMPARISON:? [facility], MR, STROKE PROTOCOL, 02/20/2017, 14:19. ? FINDINGS:? Image quality:? Excellent.? ? BRAIN:? CSF spaces:? Ventricles are normal in size and shape.? Basal cisterns are patent .? No extra-axial fluid collections.? Brain:? No intracranial bleeds or mass effects.? Mild diffuse cerebral volume loss.? Mild degree of patchy high FLAIR signal within the periventricular and subcortical white matter.? Jessica-white matter interface is normal.? Diffusion weighted images demonstrate a 13 mm region of elevated signal intensity within the left basal ganglia, which demonstrates moderate FLAIR signal elevation..? Brainstem appears normal.? Normal intravascular flow voids are present.? No abnormal intracranial enhancement.? Skull and face:? Calvarial marrow signal is normal.? Orbits appear normal.? Sinuses:? Sinuses and mastoids are clear.? ? BRAIN MR ANGIOGRAM:? Anterior circulation:? Intracranial internal carotid arteries are normal in size and enhancement.? The flow within the paired anterior cerebral arteries is normal and symmetric.? The flow within the middle cerebral arteries is normal and symmetric.? The anterior communicating artery is seen.? No stenoses, occlusions, or aneurysms.? Posterior circulation:? The visualized portions of the vertebral arteries demonstrate normal caliber, and join to form a normal appearing basilar artery.? Near origins of the posterior cerebral arteries bilaterally.? The flow within the posterior cerebral arteries is normal and symmetric.? No stenoses, occlusions, or aneurysms.? ? NECK MR ANGIOGRAM:? There is a common origin of the innominate and left common carotid arteries, which is patent.? Innominate artery is patent.? Mild origin stenosis of the right common carotid artery.? Right internal carotid artery is patent, with a pharyngeal loop.? Right subclavian artery is patent.? Right vertebral artery is patent. ? Left common, internal, and external carotid arteries are patent.? Left internal carotid artery demonstrates a pharyngeal loop.? Left subclavian artery is patent.? Left vertebral artery is patent. ? IMPRESSION:? ? BRAIN MRI:? 1. 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 2. Volume loss and small vessel ischemic disease. ? BRAIN MR ANGIOGRAM:? 1. Negative cerebral MR angiography. ? NECK MR ANGIOGRAM:? 1. No internal carotid artery stenosis.? Patent bilateral vertebral arteries.? ? ? Dictated by: Ashwin Petersen M.D. on 06/25/2021 at 14:55 ? ? ECG Data Interpretation: Sinus rhythm rate 69 CO interval 176 QRS [address] changes MDM Narrative Medical decision making narrative: At this time patient has no focal deficits, I really do not appreciate significant language is deficits, symptoms have been ongoing for a number of days MRI is negative. At this time recommend outpatient follow-up and aspirin daily. Also recommend decreasing alcohol intake. Possible TIA. At this time patient is 4 days out of her symptoms no need for admission. 1530- Dr. Rios patient's PCP has been updated on patient's symptoms test results happy to follow up as an outpatient. Discharge Plan Departure Patient Disposition: Home Clinical Impression: Brain TIA Instructions: DI for Transient Ischemic Attack Activity Restrictions/Additional Instructions: *You have been diagnosed with possible TIA *What to do: At this time please follow-up as an outpatient. You will need an echocardiogram is. MRI today is negative for stroke however it is possible he still had a ?mini-stroke? *Continue to take medications as directed *Follow up with your primary care provider in 2-3 days or call [phone] *Return to ER if you should have increasing speech difficulty, numbness tingling weakness or any new, worsening or concerning symptoms Prescriptions: No Action multivitamin [Multiple Vitamins] 1 EACH tablet 1 tab PO QDAY Qty: 0 0RF estradiol 0.01 % (0.1 mg/gram) cream See Rx Instructions VAG BEDTIME Qty: 42.5 3RF Dose Instruction: Fingertip size amount VAG BEDTIME; for 14 days Rx Instructions: Fingertip size amount VAG BEDTIME; for 2-4 weeks - then use 2-3 times weekly as needed bupropion HCl 150 mg tablet extended release 24 hr 150 mg PO BID Qty: 180 2RF escitalopram oxalate 10 mg tablet 15 mg PO DAILY Qty: 135 2RF budesonide 3 mg capsule,delayed,extend.release 9 mg PO DAILY Qty: 90 1RF Rx Instructions: Take 1 tablet once daily, may increase to 3 tabs daily for 12 weeks during exacerbation diazepam 5 mg tablet 5 mg PO BEDTIME PRN (Reason: insomnia) Qty: 10 5RF Referrals: Buster Rios MD [Primary Care Provider] -
[2021-06-25 11:55] LABS: Add Manual Diff / Slide Review NO; Basophils Absolute Auto 100 /uL (0-100); Basophils Percent Auto 0.8 % (0-2); Eosinophils Absolute Auto 100 /uL (0-450); Eosinophils Percent Auto 1.1 % (2-4); Hematocrit 42.2 % (36-46); Hemoglobin 14.6 g/dL (12.0-16.0); Lymphocytes Absolute Auto 2700 /uL (1100-4500); Lymphocytes Percent Auto 37.1 % (25-40); Mean Corpuscular HGB Conc 34.6 % (30-36); Mean Corpuscular Hemoglobin 30.9 PG (26-34); Mean Corpuscular Volume 89.5 fL (80-100); Monocytes Absolute Auto 600 /uL (0-900); Monocytes Percent Auto 8.4 % (3-14); Neutrophils Absolute Auto 3800 /uL (1500-7000); Neutrophils Percent Auto 52.6 % (50-75); Platelet Count 230 X10^3/uL (150-400); Red Blood Cell Count 4.71 X10^6/uL (4.0-5.2); Red Cell Distribution Width 13.4 % (11.6-14.8); White Blood Cell Count 7.3 X10^3/uL (4.5-11.0)
[2021-06-25 12:02] LABS: Alanine Aminotransferase 18 IU/L (<35); Albumin 4.4 g/dL (3.5-5.0); Albumin Globulin Ratio 1.6 (1.0-2.8); Alkaline Phosphatase 47 U/L (38-126); Aspartate Aminotransferase 26 IU/L (14-36); BUN Creatinine Ratio 27.8 (6-22); Bilirubin Total 0.6 mg/dL (0.2-1.3); Blood Urea Nitrogen 22 mg/dL (7-17); Calcium 9.7 mg/dL (8.4-10.2); Carbon Dioxide 23 mmol/L (22-32); Chloride 109 mmol/L (98-107); Creatine Kinase 50 U/L (30-135); Estimated Glomerular Filt Rate > 60 mL/min (>60); Ethanol (ETOH) < 10 mg/dL; Globulin 2.7 g/dL (1.7-4.1); Glucose 87 mg/dL (80-110); HEMOLYSIS 16 (0-50); Sodium 141 mmol/L (137-145); Total Protein 7.1 g/dL (6.3-8.2)
[2021-06-25 12:13] LABS: Troponin I < 0.012 ng/mL (0.01-0.034)
[2021-06-25] MEDS: SODIUM CHLORIDE 0.9% 1,000 ML 150 ML IV (12:36)
[2021-06-25 12:40] LABS: Procalcitonin 0.04 ng/mL (<0.5)
--- NOTE | 2021-06-25 13:00 | DI.MRI.S_ITS ---
PROCEDURE: MR STROKE Pre- and post-contrast brain MRI, non-contrast brain MR angiogram, pre- and postcontrast neck MR angiogram INDICATIONS: difficulty speaking x 4 days symptoms resovled TECHNIQUE: Brain: Noncontrast axial T1 spin echo, axial T2 fast spin echo, sagittal and axial FLAIR, coronal T2 fast spin echo, axial gradient echo, axial diffusion and ADC through the brain. After the administration of contrast, axial 3D VIBE of the cranial vasculature and brain. Brain MRA: Non-contrast 3-D time of flight MR angiogram, with multiple ubismsy-hjqzucglr-hjetjkqtup (MIP) reformats performed. Neck MRA: Axial and sagittal TruFISP through the neck. Coronal dynamic MR angiogram during administration of contrast in the arterial and venous phases, with 3-dimenstional grmozzo-pmkrpaiwu-mtogcecdjo (MIP) reformats constructed from subtraction images. COMPARISON: [facility], , STROKE PROTOCOL, 02/20/2017, 14:19. FINDINGS: Image quality: Excellent. BRAIN: CSF spaces: Ventricles are normal in size and shape. Basal cisterns are patent. No extra-axial fluid collections. Brain: No intracranial bleeds or mass effects. Mild diffuse cerebral volume loss. Mild degree of patchy high FLAIR signal within the periventricular and subcortical white matter. Jessica-white matter interface is normal. Diffusion weighted images demonstrate a 13 mm region of elevated signal intensity within the left basal ganglia, which demonstrates moderate FLAIR signal elevation.. Brainstem appears normal. Normal intravascular flow voids are present. No abnormal intracranial enhancement. Skull and face: Calvarial marrow signal is normal. Orbits appear normal. Sinuses: Sinuses and mastoids are clear. BRAIN MR ANGIOGRAM: Anterior circulation: Intracranial internal carotid arteries are normal in size and enhancement. The flow within the paired anterior cerebral arteries is normal and symmetric. The flow within the middle cerebral arteries is normal and symmetric. The anterior communicating artery is seen. No stenoses, occlusions, or aneurysms. Posterior circulation: The visualized portions of the vertebral arteries demonstrate normal caliber, and join to form a normal appearing basilar artery. Near origins of the posterior cerebral arteries bilaterally. The flow within the posterior cerebral arteries is normal and symmetric. No stenoses, occlusions, or aneurysms. NECK MR ANGIOGRAM: There is a common origin of the innominate and left common carotid arteries, which is patent. Innominate artery is patent. Mild origin stenosis of the right common carotid artery. Right internal carotid artery is patent, with a pharyngeal loop. Right subclavian artery is patent. Right vertebral artery is patent. Left common, internal, and external carotid arteries are patent. Left internal carotid artery demonstrates a pharyngeal loop. Left subclavian artery is patent. Left vertebral artery is patent. IMPRESSION: BRAIN MRI: 1. 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 2. Volume loss and small vessel ischemic disease. BRAIN MR ANGIOGRAM: 1. Negative cerebral MR angiography. NECK MR ANGIOGRAM: 1. No internal carotid artery stenosis. Patent bilateral vertebral arteries. Dictated by: Ashwin Petersen M.D. on 06/25/2021 at 14:55 Approved by: Ashwin Petersen M.D. on 06/25/2021 at 14:59
--- NOTE | 2021-06-25 13:45 | CM.SWNOTE ---
ED Social Work Note: Pt is 85yo female admitted to ED today for concerns about difficulty with speaking and word seeking. Patient's son, Mark, stated particular concerns for patient's ability to remain safe at home as pt resides alone. Son reported he had previously hired in-home caregivers but pt had declined to keep them coming to pt's home. Son reported patient is unable to drive and no longer has her DL but pt bought another car which son reported is a stick shift and pt probably doesn't have the coordination to drive it anymore. Son reported he thinks patient may be not taking her prescribed medications accurately because pt's boyfriend (Shadi) had informed son that the medications are typically neatly organized but are no longer. Son reported he would like to have patient move to [facility] but patient is declining this at this time. family support worker spoke with patient. Patient reported she has people come to her home to help her with housekeeping. Patient reported she is fully independent with hygiene, meal prep, and ADLs. Patient denied concerns for her medications or alcohol use. Patient reported her SO visits her often. Patient stated her desire is to live independently at her home. Patient was counseled on ETOH consumption with fall risks that son mentioned he was concerned about. Patient acknowledged that getting care into her home would be helpful to maintain her ability to remain living independently but reiterated she does not believe she is currently at the stage of needing such assistance. Patient's son requested phone call with information on discharge recommendations; particularly if there are any follow up medical appts pt is referred to make, he would like to know this. Pt's son is POA and is attempting to find information on how he can help keep pt safe. family support worker provider [employer] booklet with in-home caregiver companies to call as well as discussed [facility] who can assist with longer term planning options. Patient declined to discuss any further with social work case manager. Son leaving and SO agrees to transport patient home once ready for discharge. Sidney ROBERTSON
[2021-06-25] MEDS: ASPIRIN 81 MG CHEW TAB 324 MG PO (15:27)
== END 2021-06-25 15:41 | disposition home or self-care (01) ==
PROVIDERS: Emergency Provider Emergency Medicine; PCP Student in an Organized Health Care Education/Training Program
DX: G45.9 Transient cerebral ischemic attack, unspecified (principal); R03.0 Elevated blood-pressure reading, without diagnosis of hypertension
CPT/HCPCS: 36415; 70450; 70548; 70553; 80053; 80320; 82550; 82962; 83605; 84145; 84484; 85025; 93005; 93010; 99284; 99285; A9579

== ENCOUNTER 2022-12-29 10:30 | Inpatient (IN) | payer MEDICARE, OTHER, SELFPAY ==
[2022-12-29] VITALS (11 sets, daily range): BP systolic 125–169; BP diastolic 64–77; PULSE 60–79; RESP 16–24; TEMP 36.1–36.9; O2SAT 95–99; BMI 18.8
--- NOTE | 2022-12-29 10:37 | DI.CT.S_ITS ---
PROCEDURE: CT ANGIO HEAD AND NECK INDICATIONS: Left side weakness TECHNIQUE: After the administration of intravenous contrast, 1 mm thick sections acquired from the aortic arch through the [place] of [place]. 3-dimensional yssqise-dgqrdvyun-zmhnbnqrzh (MIP) and/or volume rendering reformats were acquired of the central intracranial vasculature and neck separately. For radiation dose reduction, the following was used: automated exposure control, adjustment of mA and/or kV according to patient size. COMPARISON: [facility], CT, CT CERVICAL SPINE WO CON, 08/19/2018, 19:15. [facility], MR, MR STROKE, 06/25/2021, 14:10. [facility], CT, CT STROKE, 12/29/2022, 10:47. FINDINGS: Image quality: Excellent. BRAIN: CSF spaces: Ventricles are normal in size and shape. Basal cisterns are patent. No extra-axial fluid collections. Brain: No midline shift. No intracranial masses. No suspicious enhancement. Jessica-white matter interface appears intact. Redemonstration of focus of hypoattenuation involving the right basal ganglia/thalamus. Skull and face: Calvarium and facial bones appear intact, without suspicious lesions. Orbits appear normal. Sinuses: Sinuses and mastoids are clear. HEAD CT ANGIOGRAPHY: Anterior circulation: Atherosclerotic calcifications are noted. Intracranial internal carotid arteries appear patent without high-grade stenosis. There is flow/opacification within the paired anterior cerebral arteries. There is opacification within the middle cerebral arteries. The anterior communicating artery is seen. No aneurysms are seen. No occlusion. Posterior circulation: Atherosclerotic calcifications are present. Visualized portions of the vertebral arteries are patent and join to form a normal appearing basilar artery. No evidence for high-grade stenosis. No occlusions. There is opacification of the posterior cerebral arteries. No aneurysms are seen. NECK CT ANGIOGRAPHY: Carotid system: The great vessels demonstrate a conventional anatomy as they arise from the aortic arch. Atherosclerotic calcifications of the aortic arch are present. The origins of the common carotid arteries appear patent. The common carotid arteries appear patent throughout their visualized courses without high grade stenosis. Atherosclerotic calcifications of the carotid bifurcations. The bifurcation regions are both patent without high grade stenosis. The internal carotid arteries demonstrate normal calibers and courses. Posterior circulation: The origins of the vertebral arteries both appear patent without hemodynamically significant stenosis. The more superior extracranial portions of both vertebral arteries also demonstrate normal courses and calibers. They join to form a normal appearing basilar artery. Soft tissues: Visualized neck soft tissues demonstrate no suspicious abnormalities. Stable right thyroid hypodense nodule. Bones: No suspicious bony lesions. No evidence for traumatic malalignment. Severe multilevel cervical spondylosis. No acute compression fractures of the vertebral bodies. IMPRESSION: 1. Moderate atherosclerotic vascular calcifications without high-grade stenosis, occlusion, dissection, or aneurysm in the visualized intracranial and neck arterial vasculature. 2. No acute osseous abnormalities or traumatic malalignment. Severe multilevel cervical spondylosis. If there is persistent or high clinical suspicion for acute cerebrovascular ischemia/stroke, more sensitive evaluation with brain MRI can be considered. Any quantitative measurements of stenosis were performed using NASCET criteria. Dictated by: Yunior Quick M.D. on 12/29/2022 at 11:16 Approved by: Yunior Quick M.D. on 12/29/2022 at 11:22
--- NOTE | 2022-12-29 10:37 | DI.CT.S_ITS ---
PROCEDURE: CT STROKE INDICATIONS: Left side weakness TECHNIQUE: Noncontrast 4.5 mm thick angled axial sections acquired from the foramen magnum to the vertex, with coronal reformats. For radiation dose reduction, the following was used: automated exposure control, adjustment of mA and/or kV according to patient size. COMPARISON: [facility], MR, MR STROKE, 06/25/2021, 14:10. [facility], CT, CT ANGIO HEAD AND NECK, 12/29/2022, 10:47. [facility], CT, CT HEAD/BRAIN WO CON, 06/25/2021, 11:55. FINDINGS: Image quality: Excellent. CSF spaces: Basal cisterns are patent. No extra-axial fluid collections. The ventricles are symmetric in size and shape. Brain: No intracranial bleeds or masses. There is cerebral volume loss for age, with resultant ventricular and sulcal prominence. There are periventricular and deep white matter chronic small vessel ischemic changes. There is focal hypoattenuation involving the right basal ganglia. This was not seen on the most recent CT head or MRI brain dated June 25, 2021. This may represent an age-indeterminate but with chronic appearing infarction. There is intracranial internal carotid artery atherosclerosis. Skull and face: Calvarium and visualized facial bones appear intact, without suspicious lesions. Sinuses: Visualized sinuses and mastoids are clear. IMPRESSION: Interval visualization of a focus of hypoattenuation involving the right basal ganglia not seen on most recent comparison CT head or brain dated June 25, 2021 and is favored to represent sequela from a more chronic infarction. Otherwise, no acute intracranial abnormalities identified. Findings were discussed with Dr. Dyer at 11:09 a.m.. This study fulfills neurological imaging criteria for inclusion or exclusion of acute stroke therapies based on available published neurological guidelines. Dictated by: Yunior Quick M.D. on 12/29/2022 at 10:59 Approved by: Yunior Quick M.D. on 12/29/2022 at 11:09
--- NOTE | 2022-12-29 10:39 | ED.NEUROSD ---
HPI - Neuro Symptoms/Deficit General Chief Complaint: Neuro Symptoms/Deficit Stated Complaint: GLF no thinners Time Seen by Provider: 12/29/22 10:37 History of Present Illness HPI Narrative: Patient brought in by ambulance from home. Blood sugar 108. Patient has left-sided weakness with slight drooping of the left lip. Unknown last well known time. Patient lives with boyfriend. Boyfriend had left to go out of town came back last night found her on the floor. Through the night he had been helping her get around the house but unable to today to go to the bathroom. Patient has history of TIA admission June 2021. Patient was seen here. Patient states she tried getting off the commode and fell down. That is all she remembers. She does not know how long she is been on the ground since her boyfriend had left out of town. Denies pain anywhere. Patient has bruising to left deltoid area. Related Data Home Medications Medication Instructions Recorded Confirmed multivitamin (Multiple Vitamins 1 tab PO QDAY ##0 08/13/16 07/10/21 tablet) Previous Rx's Medication Instructions Recorded estradiol 0.01% (0.1 mg/gram) See Rx Instructions vaginal 03/25/18 vaginal cream BEDTIME #42.5 grams bupropion HCl 150 mg 24 hr tablet, 150 mg PO BID #180 tabs 06/25/20 extended release diazepam 5 mg tablet 5 mg PO BEDTIME PRN insomnia #10 10/28/20 tabs budesonide 3 mg See Rx Instructions .Route 11/06/22 capsule,delayed,extended release .COMPLEX #90 caps escitalopram oxalate 10 mg tablet 15 mg (1.5 x 10 mg) PO DAILY #90 12/25/22 tabs Allergies Allergy/AdvReac Type Severity Reaction Status Date / Time No Known Drug Allergies Allergy Verified 12/29/22 10:38 Review of Systems Review of Systems Narrative: GENERAL: negative chills, fatigue, malaise, fever, sweats. HEENT: negative sinus pain, ear pain, sore throat RESPIRATORY: negative dyspnea, cough CARDIOVASCULAR: negative chest pain, palpitations GASTROINTESTINAL: negative nausea, vomiting, abdominal pain : negative dysuria, frequency, hematuria MUSCULOSKELETAL: negative muscle or bony pain SKIN: negative rash, skin lesions, positive bruit NEUROLOGIC: Positive weakness, negative numbness ROS Unobtainable: All systems reviewed & are unremarkable except as noted in HPI and below Patient History Medical History Osteoarthritis Seasonal allergies Depression (~1999) Headache Osteoporosis Osteopenia Mumps Measles Chicken pox Recurrent sinusitis Fecal incontinence (~1999) Collagenous colitis (~2003) Breast cancer (~2001) Social History household members: none Smoking Status: Never smoker second hand exposure: No alcohol intake: current substance use type: does not use Smoking Status: Never smoker alcohol intake frequency: 3 or more drinks per day Substance Use Type: does not use Exam Narrative Exam Narrative: GENERAL: in no distress, not toxic not dyspneic HEAD: Normocephalic. EYES: Pupils equal round ENT: Mucous membranes moist. NECK: Trachea midline. CARDIOVASCULAR: Regular rate and rhythm RESPIRATORY: Clear to auscultation. Breath sounds equal bilaterally. No wheezes, rales, or rhonchi. GASTROINTESTINAL: Abdomen soft, non-tender EXTREMITIES: No gross deformities. BACK: No flank tenderness. NEURO: AOx3. Has clear speech but slight left lip droop. There is complete flaccidity of the left upper extremity and left lower extremity. Unable to actively lift either limb off the table. Unable to online activist my hand or flex or extend at the ankle or knee or hip. Light touch intact to hands and feet. Light touch intact to face bilaterally SKIN: Warm and dry PSYCH: Not anxious, is cooperative Initial Vital Signs Initial Vital Signs: Vital Signs Pulse Rate 75 12/29/22 10:34 Respiratory Rate 24 12/29/22 10:34 Pulse Oximetry 98 12/29/22 10:34 Scores NIH Stroke Scale Level of Conciousness: Alert, keenly responsive Ask month/age: Answers both questions correctly. Open/close eyes, close hand: Performs both tasks correctly Best gaze horizontal: Normal Visual hamm: No visual loss Facial palsy: Minor paralysis, flattened nasolabial fold, asymmetry on smiling Left arm drift: No movement Right arm drift: No drift for full 10 sec Left leg drift: No movement Right leg drift: No drift for full 5 sec Limb ataxia: Absent Sensory on face/arms/legs: Normal, no sensory loss Best language: No aphasia, normal Dysarthria: Normal Extinction or inattention: No abnormality Total NIH Stroke scale score: 9 Course Orders Ordered: ED Orders 12/29/22 10:[address] angio head and neck Stat 12/29/22 10:40 CK [Creatine Kinase] Stat Complete Blood Count AUTO DIFF Stat Comprehensive Metabolic Panel Stat Troponin & CK Cardiac Panel Stat 12/29/22 10:41 CT cervical spine wo con Stat XR shoulder LT min 2V Stat Acetaminophen (Acetaminophen 325 Mg Tablet) 650 mg PO Q6H PRN PRN Reason: Fever/Mild Pain (1-3) Aspirin (Aspirin Ec 81 Mg Tablet) 81 mg PO DAILY [facility] Atorvastatin Calcium (Atorvastatin 20 Mg Tablet) 80 mg PO BEDTIME NORBERTO Clopidogrel Bisulfate (Clopidogrel 75 Mg Tablet) 75 mg PO DAILY [facility] Heparin Sodium (Porcine) (Heparin 5,000 Unit/Ml Vial) 5,000 unit SUBCUT BID [facility] Naloxone HCl (Naloxone 0.4 Mg/Ml Vial) 0.2 mg IV Q2MIN PRN PRN Reason: Opiate Reversal Ondansetron HCl (Ondansetron 4 Mg/2 Ml Inj) 4 mg IV Q8HR PRN PRN Reason: Nausea And Vomiting Discontinued Medications Sodium Chloride (Normal Saline 0.9%) 500 mls @ 1,000 mls/hr IV BOLUS ONE Stop: 12/29/22 11:06 Last Infusion: 12/29/22 11:46 Dose: Infused Documented By: Admin: 12/29/22 10:58 Dose: 1,000 mls/hr Documented By: STEFANO Vital Signs Vital signs: Vital Signs - 8 hr 12/29/22 10:34 12/29/22 10:36 12/29/22 10:36 Temperature Pulse Rate 75 75 Respiratory Rate 24 Blood Pressure 169/77 H Pulse Oximetry 98 98 Oxygen Delivery Method 12/29/22 10:38 12/29/22 11:02 12/29/22 11:03 Temperature 98.5 F Pulse Rate 68 66 Respiratory Rate 18 Blood Pressure 169/77 H 153/69 H Pulse Oximetry 97 96 Oxygen Delivery Method Room Air 12/29/22 11:03 12/29/22 11:30 12/29/22 11:30 Temperature Pulse Rate 67 62 Respiratory Rate 24 Blood Pressure 156/69 H Pulse Oximetry 99 98 Oxygen Delivery Method 12/29/22 12:00 12/29/22 12:00 Temperature Pulse Rate 63 Respiratory Rate Blood Pressure 152/69 H Pulse Oximetry 98 Oxygen Delivery Method MDM - Neuro Symptoms/Deficit Lab Data 12/29/22 10:40 12/29/22 10:40 Labs: Lab Results 12/29/22 12/29/22 Range/Units 10:40 10:40 WBC 10.3 (4.5-11.0) X10^3/uL RBC 5.27 H (4.0-5.2) X10^6/uL Hgb 16.2 H (12.0-16.0) g/dL Hct 47.7 H (36-46) % MCV 90.6 (80-100) fL MCH 30.8 (26-34) PG MCHC 34.0 (30-36) % RDW 13.6 (11.6-14.8) % Plt Count 267 (150-400) X10^3/uL Neut % (Auto) 69.3 (50-75) % Lymph % (Auto) 20.7 L (25-40) % [place] % (Auto) 8.8 (3-14) % Eos % (Auto) 0.7 L (2-4) % Baso % (Auto) 0.5 (0-2) % Neut # (Auto) 7100 H (1243-4509) /uL Lymph # (Auto) 2100 (5310-7394) /uL [place] # (Auto) 900 (0-900) /uL Eos # (Auto) 100 (0-450) /uL Baso # (Auto) 0 (0-100) /uL Sodium 134 L (137-145) mmol/L Potassium 3.7 (3.4-5.1) mmol/L Chloride 101 (98-107) mmol/L Carbon Dioxide 25 (22-32) mmol/L BUN 23 H (7-17) mg/dL Creatinine 0.77 (0.52-1.04) mg/dL Estimated GFR > 60 (>60) mL/min BUN/Creatinine Ratio 29.9 H (6-22) Glucose 92 (80-110) mg/dL Calcium 9.8 (8.4-10.2) mg/dL Total Bilirubin 1.1 (0.2-1.3) mg/dL AST 46 H (14-36) IU/L ALT 28 (<35) IU/L Alkaline Phosphatase 58 (38-126) U/L Total Creatine Kinase 318 H 322 H (30-135) U/L Troponin I 0.012 (0.01-0.034) ng/mL Total Protein 7.3 (6.3-8.2) g/dL Albumin 4.2 (3.5-5.0) g/dL Globulin 3.1 (1.7-4.1) g/dL Albumin/Globulin Ratio 1.4 (1.0-2.8) Imaging Data CT scan - head: Radiologist's Impression: [address] [address] [address] Scan Report Signed Patient: Concepcion Berumen MR#: [id number] : 1935 Acct:[id number] Age/Sex: 87 / F Date of Service: 12/29/22 Loc: ED Accession Number: [id number] Procedure: CT Stroke Ordering Provider: Jonh Dyer MD PROCEDURE: CT STROKE INDICATIONS: Left side weakness TECHNIQUE: Noncontrast 4.5 mm thick angled axial sections acquired from the foramen magnum to the vertex, with coronal reformats. For radiation dose reduction, the following was used: automated exposure control, adjustment of mA and/or kV according to patient size. COMPARISON: [facility], MR, MR STROKE, 06/25/2021, 14:10. [facility], CT, CT ANGIO HEAD AND NECK, 12/29/2022, 10:47. [facility], CT, CT HEAD/BRAIN WO CON, 06/25/2021, 11:55. FINDINGS: Image quality: Excellent. CSF spaces: Basal cisterns are patent. No extra-axial fluid collections. The ventricles are symmetric in size and shape. Brain: No intracranial bleeds or masses. There is cerebral volume loss for age, with resultant ventricular and sulcal prominence. There are periventricular and deep white matter chronic small vessel ischemic changes. There is focal hypoattenuation involving the right basal ganglia. This was not seen on the most recent CT head or MRI brain dated June 25, 2021. This may represent an age-indeterminate but with chronic appearing infarction. There is intracranial internal carotid artery atherosclerosis. Skull and face: Calvarium and visualized facial bones appear intact, without suspicious lesions. Sinuses: Visualized sinuses and mastoids are clear. IMPRESSION: Interval visualization of a focus of hypoattenuation involving the right basal ganglia not seen on most recent comparison CT head or brain dated June 25, 2021 and is favored to represent sequela from a more chronic infarction. Otherwise, no acute intracranial abnormalities identified. Findings were discussed with Dr. Dyer at 11:09 a.m.. This study fulfills neurological imaging criteria for inclusion or exclusion of acute stroke therapies based on available published neurological guidelines. Dictated by: Yunior Quick M.D. on 12/29/2022 at 10:59 Approved by: Yunior Quick M.D. on 12/29/2022 at 11:09 CTA - brain/neck: Radiologist's Impression: [address] [address] [address] Scan Report Signed Patient: Concepcion Berumen MR#: [id number] : 1935 Acct:[id number] Age/Sex: 87 / F Date of Service: 12/29/22 Loc: ED Accession Number: [id number] Procedure: CT angio head and neck Ordering Provider: John Dyer MD PROCEDURE: CT ANGIO HEAD AND NECK INDICATIONS: Left side weakness TECHNIQUE: After the administration of intravenous contrast, 1 mm thick sections acquired from the aortic arch through the [place] of [place]. 3-dimensional eauabea-tlanmvbhi-mzxdqrtsxy (MIP) and/or volume rendering reformats were acquired of the central intracranial vasculature and neck separately. For radiation dose reduction, the following was used: automated exposure control, adjustment of mA and/or kV according to patient size. COMPARISON: [facility], CT, CT CERVICAL SPINE WO CON, 08/19/2018, 19:15. [facility], MR, MR STROKE, 06/25/2021, 14:10. [facility], CT, CT STROKE, 12/29/2022, 10:47. FINDINGS: Image quality: Excellent. BRAIN: CSF spaces: Ventricles are normal in size and shape. Basal cisterns are patent. No extra-axial fluid collections. Brain: No midline shift. No intracranial masses. No suspicious enhancement. Jessica-white matter interface appears intact. Redemonstration of focus of hypoattenuation involving the right basal ganglia/thalamus. Skull and face: Calvarium and facial bones appear intact, without suspicious lesions. Orbits appear normal. Sinuses: Sinuses and mastoids are clear. HEAD CT ANGIOGRAPHY: Anterior circulation: Atherosclerotic calcifications are noted. Intracranial internal carotid arteries appear patent without high-grade stenosis. There is flow/opacification within the paired anterior cerebral arteries. There is opacification within the middle cerebral arteries. The anterior communicating artery is seen. No aneurysms are seen. No occlusion. Posterior circulation: Atherosclerotic calcifications are present. Visualized portions of the vertebral arteries are patent and join to form a normal appearing basilar artery. No evidence for high-grade stenosis. No occlusions. There is opacification of the posterior cerebral arteries. No aneurysms are seen. NECK CT ANGIOGRAPHY: Carotid system: The great vessels demonstrate a conventional anatomy as they arise from the aortic arch. Atherosclerotic calcifications of the aortic arch are present. The origins of the common carotid arteries appear patent. The common carotid arteries appear patent throughout their visualized courses without high grade stenosis. Atherosclerotic calcifications of the carotid bifurcations. The bifurcation regions are both patent without high grade stenosis. The internal carotid arteries demonstrate normal calibers and courses. Posterior circulation: The origins of the vertebral arteries both appear patent without hemodynamically significant stenosis. The more superior extracranial portions of both vertebral arteries also demonstrate normal courses and calibers. They join to form a normal appearing basilar artery. Soft tissues: Visualized neck soft tissues demonstrate no suspicious abnormalities. Stable right thyroid hypodense nodule. Bones: No suspicious bony lesions. No evidence for traumatic malalignment. Severe multilevel cervical spondylosis. No acute compression fractures of the vertebral bodies. IMPRESSION: 1. Moderate atherosclerotic vascular calcifications without high-grade stenosis, occlusion, dissection, or aneurysm in the visualized intracranial and neck arterial vasculature. 2. No acute osseous abnormalities or traumatic malalignment. Severe multilevel cervical spondylosis. If there is persistent or high clinical suspicion for acute cerebrovascular ischemia/stroke, more sensitive evaluation with brain MRI can be considered. Any quantitative measurements of stenosis were performed using NASCET criteria. Dictated by: Yunior Quick M.D. on 12/29/2022 at 11:16 Approved by: Yunior Quick M.D. on 12/29/2022 at 11:22 Extremity x-ray #1: Radiologist's Impression: [address] [address] XRay Report Signed Patient: Concepcion Berumen MR#: [id number] : 1935 Acct:[id number] Age/Sex: 87 / F Date of Service: 12/29/22 Loc: ED Accession Number: [id number] Procedure: XR shoulder LT min 2V Ordering Provider: John Dyer MD PROCEDURE: XR SHOULDER LT MIN 2V INDICATIONS: Pain/injury TECHNIQUE: 3 views of the shoulder were acquired. COMPARISON: [facility], CR, XR SHOULDER RT MIN 2V, 06/01/2019, 11:22. FINDINGS: Bones: Diffuse osteopenia. No fractures or dislocations. No suspicious bony lesions. Visualized ribs appear intact. Degenerative changes of the acromioclavicular and glenohumeral joints. Soft tissues: No suspicious soft tissue calcifications. Surgical clips along the left axilla/chest. IMPRESSION: Left shoulder without fracture or dislocation. Degenerative changes of the left acromioclavicular and glenohumeral joints. Diffuse osteopenia. If there is persistent clinical concern for occult fracture given adequate mechanism of injury, consider repeat imaging in 10-14 days. Dictated by: Yunior Quick M.D. on 12/29/2022 at 11:26 Approved by: Yunior Quick M.D. on 12/29/2022 at 11:27 CT - cervical spine: Radiologist's Impression: [place] [address] CT Scan Report Signed Patient: Concepcion Berumen MR#: [id number] : 1935 Acct:[id number] Age/Sex: 87 / F Date of Service: 12/29/22 Loc: Accession Number: [id number] Procedure: CT cervical spine wo con Ordering Provider: John Dyer MD PROCEDURE: CT CERVICAL SPINE WO CON INDICATIONS: Fall TECHNIQUE: Noncontrast 3 mm thick sections acquired from the skull base to the T4 level. Sagittal and coronal reformats were then constructed. For radiation dose reduction, the following was used: automated exposure control, adjustment of mA and/or kV according to patient size. COMPARISON: [facility], CT, CT CERVICAL SPINE WO CON, 08/19/2018, 19:15. FINDINGS: Image quality: Diagnostic Bones: No acute fractures or dislocations. No acute compression fractures of the vertebral bodies. Craniocervical junction is intact. C1-C2 relationship is preserved. Visualized superior ribs are intact. Severe multilevel cervical spondylosis not significantly changed compared to the prior study. Soft tissues: Prevertebral soft tissues are normal in thickness. No paravertebral hematomas. No apical pneumothoraces. Redemonstration of prominent hypodense right thyroid nodule. IMPRESSION: CT cervical spine without acute fracture or traumatic malalignment. Severe multilevel cervical spondylosis. Dictated by: Yunior Quick M.D. on 12/29/2022 at 11:23 Approved by: Yunior Quick M.D. on 12/29/2022 at 11:25 [facility] Narrative Medical decision making narrative: Patient brought in by ambulance from home. Blood sugar 108. Patient has left-sided weakness with slight drooping of the left lip. Unknown last well known time. Patient lives with boyfriend. Boyfriend had left to go out of town came back last night found her on the floor. Through the night he had been helping her get around the house but unable to today to go to the bathroom. Patient has history of TIA admission June 2021. Patient was seen here. Patient states she tried getting off the commode and fell down. That is all she remembers. She does not know how long she is been on the ground since her boyfriend had left out of town. Denies pain anywhere. Patient has bruising to left deltoid area. After history and exam CBC CMP EKG CT head CT angiogram head and neck normal saline admission MDM CC: Left-sided weakness Complicating co-morbidities: History of TIA Data collected from: Patient/boyfriend/EMS Medical records reviewed: Admitted last year for TIA Differential considered: Includes but not limited to stroke TIA brain bleed, spinal infarct Exam documented above, pertinent findings include: Complete left side weakness Lab Test results independently reviewed as above. Pertinent findings: WBC 10.3 hemoglobin 16.2 sodium 134 potassium 3.7 BUN 23 creatinine 0.77 GFR greater than 60 total CK 322 troponin less than 0.012 Independently reviewed EKG normal sinus rhythm rate [address] elevation or depression Imaging studies independently reviewed: CT head without contrast, new right basilar going a hypoattenuation CT angiogram head neck no acute finding CT cervical spine no acute finding x-ray left shoulder no acute finding X-ray left shoulder no acute finding Consultations: 12:00 p.m.. Spoke with hospitalist dr mcbride, will admit pt Treatments: Normal saline Re-evaluations: 11:37 a.m.. Spoke with patient, son at bedside, patient's male friend at bedside. Last well known was Wednesday last week. Patient is not aware of events this week or weekend. They do understand stroke likely occurred and will need admission. Discussion: Appropriate for admission. Patient outside window of tPA as well as endovascular procedure. They do agree for admission for balance of workup for stroke. Will need echocardiogram and MRI Diagnosis: Stroke/left shoulder contusion Stroke Core Measures Exclusion Criteria TPA in CVA: Symptom Onset >3 or 4.5 Hours Discharge Plan Departure Patient Disposition: Admitted As Inpatient Clinical Impression: Cerebrovascular accident Qualifiers: CVA mechanism: unspecified Qualified Code(s): I63.9 - Cerebral infarction, unspecified Admit Date/Time: 12/29/22 12:13 Admit Provider: Bubba Mcbride
[2022-12-29 10:47] LABS: Add Manual Diff / Slide Review NO; Basophils Absolute Auto 0 /uL (0-100); Basophils Percent Auto 0.5 % (0-2); Eosinophils Absolute Auto 100 /uL (0-450); Eosinophils Percent Auto 0.7 % (2-4); Hematocrit 47.7 % (36-46); Hemoglobin 16.2 g/dL (12.0-16.0); Lymphocytes Absolute Auto 2100 /uL (1100-4500); Lymphocytes Percent Auto 20.7 % (25-40); Mean Corpuscular Hemoglobin 30.8 PG (26-34); Mean Corpuscular Volume 90.6 fL (80-100); Monocytes Absolute Auto 900 /uL (0-900); Monocytes Percent Auto 8.8 % (3-14); Neutrophils Absolute Auto 7100 /uL (1500-7000); Neutrophils Percent Auto 69.3 % (50-75); Platelet Count 267 X10^3/uL (150-400); Red Blood Cell Count 5.27 X10^6/uL (4.0-5.2); Red Cell Distribution Width 13.6 % (11.6-14.8); White Blood Cell Count 10.3 X10^3/uL (4.5-11.0)
[2022-12-29] MEDS: SODIUM CHLORIDE 0.9% 500 ML 1000 ML IV (10:58)
[2022-12-29 11:01] LABS: Alanine Aminotransferase 28 IU/L (<35); Albumin 4.2 g/dL (3.5-5.0); Albumin Globulin Ratio 1.4 (1.0-2.8); Alkaline Phosphatase 58 U/L (38-126); Aspartate Aminotransferase 46 IU/L (14-36); BUN Creatinine Ratio 29.9 (6-22); Bilirubin Total 1.1 mg/dL (0.2-1.3); Blood Urea Nitrogen 23 mg/dL (7-17); Calcium 9.8 mg/dL (8.4-10.2); Carbon Dioxide 25 mmol/L (22-32); Chloride 101 mmol/L (98-107); Creatine Kinase 318 U/L (30-135); Estimated Glomerular Filt Rate > 60 mL/min (>60); Globulin 3.1 g/dL (1.7-4.1); Glucose 92 mg/dL (80-110); HEMOLYSIS < 15 (0-50); Potassium 3.7 mmol/L (3.4-5.1); Sodium 134 mmol/L (137-145); Total Protein 7.3 g/dL (6.3-8.2)
[2022-12-29 11:02] LABS: Creatine Kinase 322 U/L (30-135)
[2022-12-29 11:12] LABS: Troponin I 0.012 ng/mL (0.01-0.034)
--- NOTE | 2022-12-29 13:36 | DI.ECHO.S_ITS ---
[facility]---------+ [facility] +---------+ : : [address] : : : : [id number] : : : : Phone: [phone] Echocardiogram Report + + :Name: NALLELY GODINEZ Study Date: 12/29/2022 Height: 64 in : :[facility] ReadingLocation: Weight: 109 lb : : Gender: Female BSA: 1.5 m2 : :: 1935 Age: 87 yrs BP: 154/64 mmHg: :Reason For Study: CVA : :Ordering Physician: JEREMIAH, : :VICTORINA Performed By: Vania Baron : :Referring: VICTORINA DANIELS : + + Interpretation Summary The ejection fraction is estimated to be 60-65%. Diastolic parameters suggest probable normal left ventricular diastolic function and normal filling pressures. The right ventricle is normal in size and function. No significant valvular abnormalities. Pulmonary artery pressures cannot be estimated because of the lack of a measurable TR jet velocity but the IVC suggests a CVP of around 3 mmHg. Procedure: A two-dimensional transthoracic echocardiogram with color flow and Doppler was performed. The study quality was technically adequate. There is no prior echocardiogram noted for this patient. The patient was in sinus rhythm with heart rates between 57-62 bpm during the exam. Left Ventricle: The left ventricle is normal in size and wall thickness. The ejection fraction is estimated to be 60-65%. Diastolic parameters suggest probable normal left ventricular diastolic function and normal filling pressures. Right Ventricle: The right ventricle is normal in size and function. Atria: The left atrial size is normal. Right atrial size is normal. There is no Doppler evidence for an interatrial shunt. The atrial septum is aneurysmal. The thickening of interatrial septum suggests lipomatous hypertrophy. Mitral Valve: The mitral valve leaflets appear mildly thickened, but open well. There is moderate mitral annular calcification. There is trace mitral regurgitation. Aortic Valve: The aortic valve is trileaflet. The aortic valve opens well. There is no aortic valve stenosis. No aortic regurgitation is present. Tricuspid Valve: The tricuspid valve is normal in structure and function. There is trace tricuspid regurgitation. Pulmonary artery pressures cannot be estimated because of the lack of a measurable TR jet velocity but the IVC suggests a CVP of around 3 mmHg. Pulmonic Valve: The pulmonic valve is not well visualized. There is no pulmonic valvular regurgitation. Great Vessels: The aortic root is normal size. The ascending aorta could not be visualized. The IVC is of normal diameter and collapses greater than 50% with a sniff. This suggests a low right atrial pressure of 3 mm Hg. Pericardium/ Pleura There is no pericardial effusion. There is no pleural effusion. MMode/2D Measurements & Calculations LVIDd: 5.2 cm LVOT diam: 2.0 cm LVIDs: 3.0 cm Ao root diam: 3.2 cm FS: 41.2 % Ao Arch Diam (Prox Trans): 2.5 cm EPSS: 1.1 cm IVSd: 0.87 cm LVPWd: 0.79 cm LV knott. diameter/BSA (cm/m^2): 3.4 LV sys. diameter/BSA (cm/m^2): 2.0 LA A2 area: 15.3 cm2 RA long axis: 4.9 cm LA A4 area: 14.9 cm2 RA area: 14.4 cm2 LA length (vol): 4.7 cm RA vol: 35.4 ml LA vol: 40.9 ml RA : 23.5 ml/m2 LA vol index: 27.1 ml/m2 IVC diam: 0.96 cm RVD1 (basal): 2.7 cm RVD2 (mid): 2.5 cm TAPSE: 2.1 cm Doppler Measurements & Calculations Ao V2 max: 149.6 cm/sec LVOT Max Cristian: 99.7 cm/sec Ao V2 mean: 93.8 cm/sec LV V1 max P.0 mmHg Ao max P.0 mmHg LV V1 VTI: 21.1 cm Ao mean P.0 mmHg SVEN(I,D): 2.1 cm2 Ao V2 VTI: 30.3 cm SVEN(V,D): 2.0 cm2 sev ratio: 0.69 SVEN indexed to BSA (cm^2/m^2): 1.4 MV E max cristian: 54.2 cm/sec TR max cristian: 217.7 cm/sec MV A max cristian: 88.6 cm/sec TR max P.0 mmHg MV E/A: 0.61 PA V2 max: 85.8 cm/sec Med Peak E' Cristian: 4.3 cm/sec PA V2 mean: 58.5 cm/sec E/E' med: 12.6 PA mean P.5 mmHg Lat Peak E' Cristian: 7.1 cm/sec PA pr(Accel): 34.5 mmHg E/E' lat: 7.7 E/e' average: 10.2 MV dec time: 0.35 sec SV(LVOT): 64.5 ml Reading Physician:05:00 PM
--- NOTE | 2022-12-29 13:36 | DI.RAD.S_ITS ---
PROCEDURE: XR ELBOW LT 2V INDICATIONS: elbow pain TECHNIQUE: 2 views of the elbow were acquired. COMPARISON: None. FINDINGS: Bones: No fractures or dislocations. No suspicious bony lesions. Soft tissues: No elbow joint effusion. No suspicious soft tissue calcifications. IMPRESSION: No evidence acute bony abnormality. If clinical suspicion and/or symptoms persist, further assessment with repeat plain films, or advanced imaging (e.g., CT, MRI, or bone scan) may be helpful for further assessment. Dictated by: Fredis Torres M.D. on 12/29/2022 at 14:32 Approved by: Fredis Torres M.D. on 12/29/2022 at 14:32
--- NOTE | 2022-12-29 16:36 | DI.MRI.S_ITS ---
PROCEDURE: MR HEAD/BRAIN WO CON INDICATIONS: cva TECHNIQUE: Non-contrast axial T1 spin echo, axial T2 fast spin echo, sagittal and axial FLAIR, coronal T2 fast spin echo, axial gradient echo, axial diffusion and ADC through the brain. COMPARISON: [facility], MR, MR STROKE, 06/25/2021, 14:10. [facility], CT, CT STROKE, 12/29/2022, 10:47. [facility], CT, CT ANGIO HEAD AND NECK, 12/29/2022, 10:47. FINDINGS: Image quality: Excellent. CSF spaces: Ventricles appear symmetric in size and shape. Basal cisterns are patent. No extra-axial fluid collections. Brain: No intracranial bleeds or mass effects. There is cerebral volume loss for age. There are periventricular and deep white matter chronic small vessel ischemic changes. Brainstem appears normal. Diffusion-weighted images show a 1.6 x 1.2 cm focus of diffusion restriction with associated signal loss on ADC map within the right thalamus. Findings are compatible with an acute infarction. No adjacent vasogenic edema. No blooming artifact on GRE sequences to suggest hemorrhagic products. Normal intravascular flow voids are present. Skull and face: Calvarial bone marrow is normal in signal. Orbits are normal. Sinuses: Sinuses and mastoids are clear. IMPRESSION: Acute right thalamic infarction. Dictated by: Yunior Quick M.D. on 12/29/2022 at 17:41 Approved by: Yunior Quick M.D. on 12/29/2022 at 17:44
--- NOTE | 2022-12-29 18:18 | PC.NURSE ---
Addendum entered by Davida Rocha R.N. 12/29/22 19:37: NIH score 9 this afternoon and evening. Original Note: Patient arrived to Room 207 at 1330. She is A&OX2-3, forgetful. She has a left facial droop with slightly slurred speech. She is able to pass her swallow evaluation with HOB at 90 degrees. She denies pain, although she states L elbow is tender to touch, LUE completely bruised, scattered bruises to RUE, multiple abrasions and scabs from multiple falls to BLE's. She has blanchable redness to her coccyx. She reports tingling to DIOGO and LLE to toes. VSS, afebrile on RA SBP slightly elevated. She remains NSR on telemetry. Echo completed at bedside, and MRI completed this evening. She tolerates dinner well. Purewick in place, call light in reach, bed alarm on, SCD's placed. Continuous monitoring.
--- NOTE | 2022-12-29 20:15 | PM.HP.1 ---
History of Present Illness History of Present Illness Date Patient Seen: 12/29/22 Time Patient Seen: 14:00 Chief complaint: GLF no thinners Narrative: Ms. Berumen is an 87W iwth [facility] collagenous colitis, TIA who presents to the hospital after being found down. She can not recall when she last felt normal. She knows she fell, but she doesn't know when that happened. She was found on the floor. She came in to the hospital with notable left sided weakness of her arm and leg and drooping of the left side of her mouth. In the ED workup was done, vitals notable for afebrile, heart rate 60s, blood pressure 160s/70s, sats 97% on room air. Labs reviewed by me and notable for WBC 10.3, hgb 16.2, plts 267. Na 134, creatinine 0.77. Trop 0.012. CK 318. Head CT shows hypoattenuation of the right basal ganglia. CTA head/neck shows no high grade stenosis. CT c-spine with no acute process. Shoulder xray with no acute process. She was ordered for aspirin and admitted for further treatment. On the floor she underwent MRI which showed right thalamic stroke. Elbow xray with no acute process. ECHO shows no acute process with EF 60-65%. [facility] Medical History Osteoarthritis Seasonal allergies Depression (~1999) Headache Osteoporosis Osteopenia Mumps Measles Chicken pox Recurrent sinusitis Fecal incontinence (~1999) Collagenous colitis (~2003) Breast cancer (~2001) Social History household members: none Smoking Status: Never smoker second hand exposure: No alcohol intake: current substance use type: does not use Meds Home Medications and Allergies Home Medications Medication Instructions Recorded Confirmed Type multivitamin (Multiple Vitamins 1 tab PO QDAY ##0 08/13/16 07/10/21 History tablet) estradiol 0.01% (0.1 mg/gram) See Rx Instructions vaginal 03/25/18 07/10/21 Rx vaginal cream BEDTIME #42.5 grams bupropion HCl 150 mg 24 hr tablet, 150 mg PO BID #180 tabs 06/25/20 07/10/21 Rx extended release diazepam 5 mg tablet 5 mg PO BEDTIME PRN insomnia #10 08/16/21 04/28/22 Rx tabs budesonide 3 mg See Rx Instructions .Route 11/06/22 Rx capsule,delayed,extended release .COMPLEX #90 caps escitalopram oxalate 10 mg tablet 15 mg (1.5 x 10 mg) PO DAILY #90 12/25/22 Rx tabs Allergies Allergy/AdvReac Type Severity Reaction Status Date / Time No Known Drug Allergies Allergy Verified 12/29/22 10:38 Review of Systems Review of Systems Narrative: 14 systems reviewed and negative aside from what is noted in HPI Exam Vital Signs (past 8 hours): - 12/29/22 12:30 12/29/22 12:30 12/29/22 13:00 Temperature Pulse Rate 64 Respiratory Rate 24 Blood Pressure 143/66 H 146/64 H Pulse Oximetry 96 Oxygen Flow Rate 12/29/22 13:00 12/29/22 13:36 Temperature 97.0 F L Pulse Rate 61 60 Respiratory Rate 24 16 Blood Pressure 154/64 H Pulse Oximetry 97 99 Oxygen Flow Rate 0 Oxygen Delivery Method Room Air Oxygen Flow Rate 0 Narrative Exam Narrative: GEN: no acute distress CV: regular rate and rhythm, no murmurs PULM: clear bilaterally ABD: soft, nontender NEURO: slurred speech, left sided facial droop, 4/5 strength left upper and lower extremity strength Objective Labs 12/29/22 10:40 12/29/22 10:40 Labs: Laboratory Results - last 24 hr 12/29/22 12/29/22 10:40 10:40 WBC 10.3 RBC 5.27 H Hgb 16.2 H Hct 47.7 H MCV 90.6 MCH 30.8 MCHC 34.0 RDW 13.6 Plt Count 267 Neut % (Auto) 69.3 Lymph % (Auto) 20.7 L Meeker % (Auto) 8.8 Eos % (Auto) 0.7 L Baso % (Auto) 0.5 Neut # (Auto) 7100 H Lymph # (Auto) 2100 [place]eker # (Auto) 900 Eos # (Auto) 100 Baso # (Auto) 0 Sodium 134 L Potassium 3.7 Chloride 101 Carbon Dioxide 25 BUN 23 H Creatinine 0.77 Estimated GFR > 60 BUN/Creatinine Ratio 29.9 H Glucose 92 Calcium 9.8 Total Bilirubin 1.1 AST 46 H ALT 28 Alkaline Phosphatase 58 Total Creatine Kinase 318 H 322 H Troponin I 0.012 Total Protein 7.3 Albumin 4.2 Globulin 3.1 Albumin/Globulin Ratio 1.4 Assessment & Plan Assessment & Plan narrative: 1. Acute thalamic CVA -MRI shows right thalamic stroke -she has notable significant deficits with left upper and lower extremity and left facial droop -ordered asa, plavix, and statin -ECHO shows no acute process -check lipids, a1c -ordered pt, ot, speech therapy 2. Collagenous colitis -continue budesonide once passes swallow eval 3. Depression -continue budesonide I have discussed plan and obtained history from patient. I have discussed plan of care with ED physician and bedside nurse. I have reviewed labs, imaging. CODE: Full Proxy: Markfabio Berumen, son [facility] - Meds 'Current medications' to include all prescriptions, [id number] products, herbals, cannabis/cannabidiol products, and vitamin/mineral/dietary (nutritional) supplements. I have utilized all available resources to obtain, update, or review the patient?s current medications. [If Yes, STOP here]: Yes
[2022-12-29] MEDS: SODIUM CHLORIDE 0.9% FLUSH 10 ML IV (21:47)
[2022-12-29] MEDS: HEPARIN 5,000 UNIT/ML VIAL 5000 UNIT SUBCUT (21:47)
[2022-12-29] MEDS: ATORVASTATIN 20 MG TABLET 80 MG PO (21:47)
[2022-12-30] VITALS (7 sets, daily range): BP systolic 133–150; BP diastolic 67–94; PULSE 68–95; RESP 16–19; TEMP 35.6–37.2; O2SAT 95–96
--- NOTE | 2022-12-30 00:12 | PC.NURSE ---
Addendum entered by Jazmyne Henry R.N. 12/30/22 07:41: rosa Bo RN, informed that home med list not updated. Original Note: Patient is alert and oriented except did not know place (stated we were in [place]) and day of week. Has slight mouth droop along with slurred speech and weakness/tingling of left arm and leg; NIH = 7. Breath sounds CTA with RA sat of 95%. HRR w/telemetry reading of SR w/PVC's. Denied nausea. BT present and abdomen is soft. Is incontinent of brown mucoid loose stools and reports she has collagenous colitis with fecal incontinence for which she takes Asacol daily but does not know the dose. External catheter is in place although patient denies incontinence and dysuria. Is able to turn herself to the right side but due to weakness of left UE she cannot turn herself to the left so staff assist in repositioning q2h. Gait not assessed but previous RN, Rosy, reported patient is a stand-pivot to transfer. Denied pain. Dressing to left elbow/forearm is CDI. SCD's not ordered. Fall risk score is high and bed alarm is activated.
[2022-12-30 06:57] LABS: Add Manual Diff / Slide Review NO; Basophils Absolute Auto 0 /uL (0-100); Basophils Percent Auto 0.5 % (0-2); Eosinophils Absolute Auto 100 /uL (0-450); Eosinophils Percent Auto 0.8 % (2-4); Hematocrit 41.7 % (36-46); Hemoglobin 14.3 g/dL (12.0-16.0); Lymphocytes Absolute Auto 1600 /uL (1100-4500); Lymphocytes Percent Auto 19.9 % (25-40); Mean Corpuscular HGB Conc 34.3 % (30-36); Mean Corpuscular Hemoglobin 31.1 PG (26-34); Mean Corpuscular Volume 90.5 fL (80-100); Monocytes Absolute Auto 800 /uL (0-900); Monocytes Percent Auto 9.7 % (3-14); Neutrophils Absolute Auto 5700 /uL (1500-7000); Neutrophils Percent Auto 69.1 % (50-75); Platelet Count 228 X10^3/uL (150-400); Red Blood Cell Count 4.61 X10^6/uL (4.0-5.2); Red Cell Distribution Width 13.6 % (11.6-14.8); White Blood Cell Count 8.3 X10^3/uL (4.5-11.0)
[2022-12-30 07:16] LABS: BUN Creatinine Ratio 27.9 (6-22); Blood Urea Nitrogen 17 mg/dL (7-17); Calcium 9.3 mg/dL (8.4-10.2); Carbon Dioxide 23 mmol/L (22-32); Chloride 105 mmol/L (98-107); Cholesterol 178 mg/dL (140-199); Estimated Glomerular Filt Rate > 60 mL/min (>60); Glucose 92 mg/dL (80-110); HDL Cholesterol 43 mg/dL (40-60); HEMOLYSIS < 15 (0-50); LDL Cholesterol Calculated 114 mg/dL (<100); Potassium 3.4 mmol/L (3.4-5.1); Sodium 136 mmol/L (137-145); Triglycerides 103 mg/dL (35-150)
[2022-12-30 07:17] LABS: Hemoglobin A1C% w Est Avg Glu 5.2 % (4.0-6.0)
[2022-12-30] MEDS: CLOPIDOGREL 75 MG TABLET PO (09:03)
[2022-12-30] MEDS: ASPIRIN EC 81 MG TABLET PO (09:03)
[2022-12-30] MEDS: HEPARIN 5,000 UNIT/ML VIAL 5000 UNIT SUBCUT ×2 (09:04→20:24)
[2022-12-30] MEDS: SODIUM CHLORIDE 0.9% FLUSH 10 ML IV ×2 (09:04→20:26)
[2022-12-30] MEDS: POTASSIUM CHLORIDE 20 MEQ TAB 40 MEQ PO (09:23)
--- NOTE | 2022-12-30 11:05 | OT.IP.EVAL ---
Current Diagnoses Cerebral infarction, unspecified (12/29/22) Past Medical History (Last Reviewed 12/29/22 @ 10:43 by John Dyer MD) Breast cancer (~2001) Chicken pox Collagenous colitis (~2003) Depression (~1999) Fecal incontinence (~1999) Headache Measles Mumps Osteoarthritis Osteopenia Osteoporosis Recurrent sinusitis Seasonal allergies Occupational Therapy Inpatient Evaluation/Re-Eval M1 PT/OT-IP Prior Functional Status Start: 12/30/22 11:38 Freq: NEEDED Status: Active Protocol: Document 12/30/22 10:10 [facility] (Rec: 12/30/22 12:05 [facility] [id number]) Medical Review Prior Functional Status Communication Pt able to communicate her needs. Per pt's boyfriend states pt has short term memory issues. Mobility and Gait Prior pt did not use a device to walk with. Activities of Daily Living and IADL's Pt able to do all her ADL needs and able to do simple IADL needs. Pt now needing assist for bills and boyfriend feels pt needing assist for medications now as not sure it she is remembering to take them. Prior Functional Level (Other details) Pt's boyfriend states pt is planning to move to [facility] and do a trial month stay when able. Social History Household Members none Number of Stairs To Enter/Railing? 2 steps with right rail from the front and garage. Home Environment Standard Height Toilet,Tub/ Shower Home Equipment Grab Bars In Shower M2 OT-IP Current Condition Start: 12/30/22 11:38 Freq: Status: Active Protocol: Document 12/30/22 10:10 [facility] (Rec: 12/30/22 12:05 [facility] [id number]) Occupational Therapy Current Condition Current Condition Evaluation Date 12/30/22 Treatment Diagnosis Right Thalamic CVA Diagnosis Onset Date 12/29/22 M3 OT- IP Subjective and Pain Start: 12/30/22 11:38 Freq: Status: Active Protocol: Document 12/30/22 10:10 [facility] (Rec: 12/30/22 12:05 [facility] [id number]) OT- Subjective Occupational Therapy Visit Type Type Initial Evaluation Visit Start Time 10:10 Visit Stop Time 11:05 Total Visit Minutes 55 Occupational Therapy Visit Comments Patient Comments Pt was soiled and agreed to get up. Patient/Caregiver Goals TO get better. OT Pain Assessment Pain When Pain Assessed At Rest Pain Present Pain Present Denied Pain M4 OT- IP ADL's Start: 12/30/22 11:38 Freq: Status: Active Protocol: Document 12/30/22 10:10 [facility] (Rec: 12/30/22 12:05 [facility] [id number]) OT [id number] Comments OT Self-Feeding Comments Not at meal time. Pt did cough after taking in water and passed observation along to POWER SHEAR OPERATOR. OT ADL-Grooming Comments OT Grooming Comments Not performed. OT ADL-Oral Care Comments Oral Care Comments Pt states did earlier. OT ADL-Dressing General Eval Lower Body Dressing Ability Total Assistance Comments OT Dressing Comments Total assist for LB dressing needs at this time due to decreased balance and mobility . OT ADL-Toileting General Evaluation Toileting Ability Total Assistance Areas Needing Assistance Manage Clothing,Perform Perineal Hygiene Comments OT Toileting Comments Pt was soiled and needing assist for all hygiene and brief management needs. Pt able to assist to lift her hips up and roll to the side with assist. OT ADL-Bathing Bathing Type Bathing Type Sponge Bath General Evaluation Bathing Ability Total Assistance Comments OT Bathing Comments Total assist at this time. Pt hands/nailed soiled and at the end of the session having pt soak her hands in soapy water. M5 OT- IP IADL's Start: 12/30/22 11:38 Freq: Status: Active Protocol: Document 12/30/22 10:10 [facility] (Rec: 12/30/22 12:05 [facility] [id number]) OT-Instrumental Activities of Daily Living Deficits IADL Deficits Identified Deficits Home Safety Awareness Awareness of Need for Assistance at Home Decreased Awareness Home Safety Comments Pt insistents that she is able to do her IADL needs, however pt boyfriend states pt has been having memory issues which causes concerns for her safety and completeness of tasks. Medication Management Medication Management Comments Concerns for safety by boyfriend. Money Management Money Management Caregiver Provides Assistance Meal Preparation Meal Preparation Comments Pt able to do simple meal prep such as putting together a sandwich. Counseling Director Counseling Director Comments Per boyfriend pt having trouble to complete tasks. Driving Driving Comments Pt not driving anymore as her boyfriends drives her to the gym, appointments,etc. M6 OT- IP Functional Cognition Start: 12/30/22 11:38 Freq: Status: Active Protocol: Document 12/30/22 10:10 [facility] (Rec: 12/30/22 12:05 [facility] [id number]) Cognitive Factors Limiting Selfcare Function Cognitive Ability Level of Alertness Alert Patient Orientation Name,Place Attention Span Ability Capable of Focused Attention, Capable of Sustained Attention Ability to Follow Commands Able to Follow One Step Commands with Increased Time, Able to Follow One Step Commands with Repetition Memory Description 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 Safety Awareness Underestimates Need for Assistance Cognitive Comments Cognitive Assessment Comments Pt able to follow commands for ADL and mobility needs. Pt is forgetful and needing reminders for safety. Pt having word finding difficulties as having trouble coming up with body parts when OT attempted light touch to her arms. OT- Vision and Hearing OT- Hearing Assessment OT- Hearing Assessment Hearing Impaired OT- Vision Assessment Visual Acuity Glasses For Reading,Contact Lenses Vision Assessment Comments Pt us hard of hearing. Not able to fully assess, pt able to read the clock accurately. M7 OT- IP Mobility and Balance Start: 12/30/22 11:38 Freq: Status: Active Protocol: Document 12/30/22 10:10 [facility] (Rec: 12/30/22 12:05 [facility] [id number]) OT- Bed Mobility Assessment Rolling Level of Assistance Moderate Assistance,Maximum Assistance Supine to Sit Supine to Sit Assist Maximum Assistance,1 Person Assistance Scooting Scooting to Edge of Bed Maximum Assistance,1 Person Assistance OT-Transfer Assessment Sit to and From Stand Sit to and from Stand Maximum Assistance,1 Person Assistance Transfers Transfer Ability Maximum Assistance,Total Assistance,1 Person Assistance Technique Transfer Destination Bed,Chair Transfer Technique Stand Step Pivot Devices Transfer Assistive Devices Gait Belt Comments Mobility Comments MODA to roll right and MAX A for to the left. MAXA x1 to get up from side lying to sitting. MAX A/Total AX 1 stand pivot to the right to the recliner. OT- Balance Assessment Sitting Balance and Reactions Static Sitting Balance Ability Poor Dynamic Sitting Balance Ability Poor Standing Balance and Reactions Static Standing Balance Ability Poor Dynamic Standing Balance Ability Poor Comments Other Balance Tests/Deviations/Treatment Pt heavily leans to the left : and decreased awareness of midline at this time. M8 OT- IP Objective Assessments Start: 12/30/22 11:38 Freq: Status: Active Protocol: Document 12/30/22 10:10 [facility] (Rec: 12/30/22 12:05 [facility] [id number]) OT Gross Range of Motion Upper Extremity Range of Motion Assessment Left Impaired OT Strength Upper Extremity Strength Assessment Left Impaired Comments Strength Comments RUE 4/5 , LUE 3-/5 to 3/5 from proximal to distal OT- Coordination Assessment Upper Extremity Finger to Nose Test Left UE Impaired Finger Tapping Test Left UE Impaired OT-Muscle Tone Assessment Comments Muscle Tone Comments Pt resistive with LUE movements at times. OT Sensation Assessment Comments Summary Comments Decreased light touch for left hand. M9 OT- IP Assessment and Plan Start: 12/30/22 11:38 Freq: Status: Active Protocol: Document 12/30/22 10:10 [facility] (Rec: 12/30/22 12:05 [facility] [id number]) OT Summary Assessment and Plan Potential Rehabilitation Potential Good Analytic Complexity at Evaluation High Summary OT Impairments Pain,Range of Motion,Strength, Balance,Coordination,Sensation ,Functional Cognition, Functional Mobility,Self- Feeding,Grooming,Dressing, Toileting,Bathing,Toilet Transfers,Shower Transfers, Activity Tolerance Progress Towards Goals Slow Progress due to Medical Issues,Slow Progress due to Activity Tolerance,Slow Progress due to Cognition Assessment Summary Pt HIgh complexity and main barriers are steps, decreased midline and balance, weakness, decreased functional use of LUE, and needing extensive assist x2 for all needs at this time. Pt is highly motivated to get better and is in the process of trying to more to [facility] for more assist especially for medications and IADL needs. Pending her progress and activity tolerance, pt may benefit from acute rehab versus skilled rehab. Goals Self-Feeding Goal Independent Grooming Goal Independent Dressing Goal Independent Toileting Goal Independent Bathing Goal Independent Shower Transfer Goal Standby Assistance Days to Meet Goals 40 Frequency of Treatment Frequency Of Treatment Once a Day Treatment Plan OT Treatment Plan ADL Training,Functional Cognition Training,Functional Mobility,Neuromuscular Re- education,Vision Retraining, Discharge Planning Discharge Recommendations OT Discharge Recommendations SNF vs Acute Rehab Transportation Needs at Discharge Wheelchair/Cabulance
--- NOTE | 2022-12-30 11:36 | PT.IIE ---
Current Diagnoses Cerebral infarction, unspecified (12/29/22) Medical History (Last Reviewed 12/29/22 @ 10:43 by John Dyer MD) Breast cancer (~2001) Chicken pox Collagenous colitis (~2003) Depression (~1999) Fecal incontinence (~1999) Headache Measles Mumps Osteoarthritis Osteopenia Osteoporosis Recurrent sinusitis Seasonal allergies Physical Therapy Inpatient Evaluation/Re-Eval M1 PT/OT-IP Prior Functional Status Start: 12/30/22 15:22 Freq: NEEDED Status: Active Protocol: Document 12/30/22 11:36 AB (Rec: 12/30/22 15:38 AB [id number]) Medical Review Prior Functional Status Medical History Reviewed Yes Communication able to make needs known Mobility and Gait pt stated that she is independent with all mobilities and ambulation without AD Activities of Daily Living and IADL's per OT note: Pt able to do all her ADL needs and able to do simple IADL needs, Pt now needing asisst for bills and boyfriend feels pt needing assist for medications now as not sure it she is remembering to take them. Prior Functional Level (Other details) per OT note: Pt's boyfriend states pt is planning to more to [facility] and do a trial month stay when able. Social History Household Members none Number of Floors (Floors) One Floor Number of Stairs To Enter/Railing? 2 steps with right rail to enter Home Environment Standard Height Toilet,Tub/ Shower Home Equipment Grab Bars Near Toilet,Grab Bars In Shower Additional Social History Comment pt stated that her BF stays with her 4 days/week M2 PT-IP Current Condition Start: 12/30/22 15:22 Freq: NEEDED Status: Active Protocol: Document 12/30/22 11:36 AB (Rec: 12/30/22 15:38 AB [id number]) Physical Therapy Current Condition Current Condition Evaluation Date 12/30/22 Treatment Diagnosis R CVA; difficulty in walking Onset Date 12/29/22 M3 PT-IP Subjective Start: 12/30/22 15:22 Freq: NEEDED Status: Active Protocol: Document 12/30/22 11:36 AB (Rec: 12/30/22 15:38 AB [email or web address]) Subjective Physical Therapy Visit Type Type Initial Evaluation Visit Start Time 11:36 Visit Stop Time 12:01 Total Visit Minutes 25 Number of STORAGE ARCHITECT Visits 0 Physical Therapy Visit Comments Patient Comments agreeable to do PT M4 PT-IP Mobility and Gait Start: 12/30/22 15:22 Freq: NEEDED Status: Active Protocol: Document 12/30/22 11:36 AB (Rec: 12/30/22 15:38 AB [id number]) PT-Bed Mobility Assessment Supine to Sit Supine to Sit Maximum Assistance,1 Person Assistance Sit to Supine Sit to Supine Moderate Assistance,1 Person Assistance PT-Transfer Assessment Sit to and From Stand Sit to and from Stand Maximum Assistance,1 Person Assistance,2 Person Assistance ,Use of Upper Extremities Equipment Transfer Assistive Device Gait Belt,Front Wheeled Walker Orthotic/Prosthetic Devices or Brace: No Transfers Transfer Destination Bed,Chair Transfer Technique Stand Step Pivot Transfer Ability Level of Assist Maximum Assistance,2 Person Assistance,Use of Upper Extremities Comments Mobility Comments pt sitting on the chair and agreeable to do PT. BP in sittin/71. completed sit<>stand max A x 2 and max cues. instructed to ambulate and completed only 2 steps max A x 2 and max cues using FWW. increase lateral L leaning and L knee buckling. pt also presents with L sided neglect. pt completed sit to stand from chair again max A x 1 and max cues and step transfer to bed max A x 2 and max cues. completed sit to supine mod A for LE elevation and max cues. required max A x1 for supine to sit. mod to max A for sitting on EOB with increase posterior and lateral trunk lean to the L. completed sit to stand from EOB max A and max cues and step transfer to chair max A x 2 and max cues. continue to have L knee buckling needing max A for stability. pt also with difficulty following directions. positioned pt on the chair. NAC in room and took over pt's care. Gait Assessment Gait Gait Assistance Required: Maximum Assistance Distance (Feet) 1 Able to Maintain Weight Bearing Status Yes During Gait Assistive Devices Assistive Device Gait Belt,Front Wheeled Walker Orthotic/Prosthetic Devices or Brace: No Gait Deviations General Gait Pattern Decreased Stride Length, Decreased Feet Clearance,Step- to Gait Factors Limiting Gait Function Factors Limiting Gait Function Decreased Activity Tolerance, Decreased Strength,Difficulty Following Directions, Incoordination,Limited Range of Motion,Pain,Poor Balance, Poor Safety Awareness Comments Gait Comments pls refer to mobility section for details PT-Balance Assessment Sitting Balance and Reactions Static Sitting Balance Ability Fair Dynamic Sitting Balance Ability Poor Standing Balance and Reactions Static Standing Balance Ability Poor Dynamic Standing Balance Ability Poor Device Used FWW M5 PT-IP Objective Assessments Start: 12/30/22 15:22 Freq: NEEDED Status: Active Protocol: Document 12/30/22 11:36 AB (Rec: 12/30/22 15:38 AB [id number]) Orientation Orientation/Cognition Level of Alertness Alert Orientation Name Safety Awareness Decreased Safety Awareness Memory Description 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 Comments with slight confusion Gross Range of Motion Lower Extremity ROM Assessment Left Impaired Impairments L ankle tightness and in PF at rest Strength Lower Extremity Strength Assessment Left Impaired Hip 3+/5 Knee 3+/5 M6 PT-IP Treatment Start: 12/30/22 15:22 Freq: NEEDED Status: Active Protocol: Document 12/30/22 11:36 AB (Rec: 12/30/22 15:38 AB [email or web address]) Physical Therapy Treatment Education Education Provided Safety M7 PT-IP Assessment and Plan Start: 12/30/22 15:22 Freq: NEEDED Status: Active Protocol: Document 12/30/22 11:36 AB (Rec: 12/30/22 15:38 AB [email or web address]) PT Summary Assessment and Plan Potential Rehabilitation Potential Fair Status of Condition at Evaluation Evolving Summary Impairments ROM,Strength,Balance, Coordination,Sensation,Tone, Cognition,Bed Mobility, Transfers,Gait,Activity Tolerance Assessment Summary pt is an 87 y/o F who presented to the ED with L sided weakness. pt's BF found pt at home on the floor. pt found to have a R thalamic infarct. pt currently requiring max A with bed mobility, max A x 2 for transfers using FWW and only able to take 2 steps using FWW for ambulation. Pt presents with increase L sided trunk leaning in sitting and standing with L knee buckling during transfers. pt also has L sided neglect. Pt lives alone and at this time will require 24/7 assist. pt will benefit from SNF vs acute rehab. Goals Bed Mobility Goal Standby Assistance Transfer Goal Minimal Assistance,Front Wheeled Walker Gait Goal Minimal Assistance,Front Wheel Walker Gait Distance 50 Other Goals improve bed mobility, transfers, ambulation using FWW/LRAD 150 ft SBA up/down 2 steps R rail SBA Days to Meet Goals 10 Frequency of Treatment Frequency Of Treatment Once a Day Treatment Plan Physical Therapy Treatment Plan Bed Mobility Training,Transfer Training,Gait Training, Therapeutic Exercise,Balance Retraining,Discharge Planning, Hot or Cold Pack,Neuromuscular Re-ed,Coordination Retraining ,Manual Therapy Precautions Other Precautions falls Recommendations To Nursing Amount of Assist Needed 2 Person Assist Discharge Recommendations PT Discharge Recommendations SNF vs Acute Rehab Transportation Needs at Discharge Wheelchair/Cabulance
--- NOTE | 2022-12-30 16:07 | CM.DANOTE ---
DCP Assessment Note: patient is an 87yo F here following CVA. PCP Was Buster Rios but don't know the new provider at clinic. Payer Medicare and [employer] BATTERY[employer] SMASH FIXER reviewed EMR. Per PT/OT, rec either SNF or acute rehab. will revisit in am to determine which is more appropriate. Per ER doc, patient was laying on ground for an unknown amount of time following stroke. SMASH FIXER entered room and introduced self and role. patient resting in bed. patient accompanied by boyfrienzoey Hsu at bedside. Per patient, she reports she's indep. with ADLs/uses no DME at baseline. Per SO Shadi, patient needs assistance with driving and housekeeping type needs. Patient requested this author speak with oscar Mark/WILLIAM for d/c plan. SMASH FIXER confirmed with RN that oscar Flores is DPOA, RN reports having the DPOA paperwork. SMASH FIXER spoke with Mark ([phone]) over the phone. SMASH FIXER provided updated based on PT/OT notes. SMASH FIXER explained difference between acute rehab versus SNF. Son seems to believe SNF would be more appropriate. Oscar Flores reports they are attempting to move patient into [facility] and were setting up a 30 day trial run prior to her stroke. Son reports she's been needing more assistance over time. SMASH FIXER explained Medicare benefits and coverage. SMASH FIXER emailed oscar ([email or web address]) Medicare counseling information and Medicare comparison website for SNF. Mark reports he will review and call this office back in morning with his preferences. Son reports being appreciative of updates and would like to continue to receive updates throughout patient's stay. Plan: Likely SNF. Will make referrals pending on patient's and DPOA's preference. CM team will continue to follow closely. OSWALDO Rojas Discharge Planning/Care Management CM Discharge Assessment Start: 12/30/22 16:03 Freq: Status: Active Protocol: Document 12/30/22 16:04 (Rec: 12/30/22 16:06 [id number]) Discharge Planning Assessment Assigned Drawbench Operator OSWALDO Calderon DPJAYJAY/Assigned Designee Name Mark Berumen (oscar) Contact Information [phone] Advance Directives? Yes Advance Directives on File No History Provided By Patient,Family Member, Significant Other,Medical Record Prior Living Arrangements House Household Members significant other Comment boyfriend Shadi often stays with patient Type of transporation used prior to Relies on Others admit Independent with ADL's No Is patient alert and oriented? Per Rn note, orientedx3, does not know location Needs Assistance With Meal Prep,Home Chores / Shopping Patient/Family Preference Care Home Facility Discharge Plan Care Home Facility Transportation Arrangement facility transportation Additional Comment Pending son/DPOA preference. Son will contact CM team tomorrow with preferences. Whiteboard Updated in Patient Room with Yes name and ext. # of Drawbench Operator Review Status In Process Next Review Type Continued Stay Review
--- NOTE | 2022-12-30 17:19 | PM.PN.1 ---
Subjective Subjective Date Patient Seen: 12/30/22 Time Patient Seen: 08:00 Interval history: Her left sided deficits remain quite profound. She has significant left face, and left upper and lower extremity weakness. Exam Vital Signs (past 8 hours): - 12/30/22 10:00 12/30/22 11:54 12/30/22 15:00 Temperature 98.9 F Pulse Rate 95 H 84 71 Respiratory Rate 16 Blood Pressure 133/94 H 136/71 149/67 H Pulse Oximetry 95 Oxygen Flow Rate 0 Oxygen Delivery Method Room Air Oxygen Flow Rate 0 Narrative Exam Narrative: GEN: no acute distress CV: regular rate and rhythm, no murmurs PULM: clear bilaterally ABD: soft, nontender NEURO: slurred speech, left sided facial droop, 3/5 strength left upper and lower extremity strength Objective Labs 12/30/22 06:20 12/30/22 06:20 Labs: Laboratory Results - last 24 hr 12/30/22 06:20 WBC 8.3 RBC 4.61 Hgb 14.3 Hct 41.7 MCV 90.5 MCH 31.1 MCHC 34.3 RDW 13.6 Plt Count 228 Neut % (Auto) 69.1 Lymph % (Auto) 19.9 L Powell % (Auto) 9.7 Eos % (Auto) 0.8 L Baso % (Auto) 0.5 Neut # (Auto) 5700 Lymph # (Auto) 1600 Powell # (Auto) 800 Eos # (Auto) 100 Baso # (Auto) 0 Sodium 136 L Potassium 3.4 Chloride 105 Carbon Dioxide 23 BUN 17 Creatinine 0.61 Estimated GFR > 60 BUN/Creatinine Ratio 27.9 H Glucose 92 Hemoglobin A1c 5.2 Calcium 9.3 Triglycerides 103 Cholesterol 178 LDL Cholesterol, Calc 114 H HDL Cholesterol 43 PFSH Medical History Osteoarthritis Seasonal allergies Depression (~1999) Headache Osteoporosis Osteopenia Mumps Measles Chicken pox Recurrent sinusitis Fecal incontinence (~1999) Collagenous colitis (~2003) Breast cancer (~2001) Social History household members: significant other Smoking Status: Never smoker second hand exposure: No alcohol intake: current substance use type: does not use Assessment & Plan Assessment & Plan narrative: 1. Acute thalamic CVA -MRI shows right thalamic stroke -she has notable significant deficits with left upper and lower extremity and left facial droop -ordered asa, plavix, and statin -ECHO shows no acute process -check lipids, a1c -ordered pt, ot, speech therapy 2. Collagenous colitis -continue budesonide 3. Depression -continue ssri I have discussed plan and obtained history from patient. I have discussed plan of care with ED physician and bedside nurse. I have reviewed labs, imaging. CODE: Full Proxy: Markfabio Berumen, son
--- NOTE | 2022-12-30 18:17 | ST.IPIE ---
Visit Care Team Role Provider Type Buster Rios MD Primary Care Provider Physician Specialty: Internal Medicine Address: [address] [place] [address], [address], [place], [address] Email: [email or web address] John Dyer MD Emergency Provider Physician Referring Provider Specialty: Emergency Medicine Address: [address] [place] [address], [id number] Email: [email or web address] MD Admit Provider Physician Attending Provider Specialty: Hospitalist Address: [address] [place] [address], [id number] Fax: Email: [email or web address] Diagnoses Cerebral infarction, unspecified (12/29/22) Past Medical History (Last Reviewed 12/29/22 @ 10:43 by John Dyer MD) Breast cancer (Medical ~2001) Chicken pox (Medical) Collagenous colitis (Medical ~2003) Depression (Medical ~1999) Fecal incontinence (Medical ~1999) Headache (Medical) Measles (Medical) Mumps (Medical) Osteoarthritis (Medical) 2 knee replacements Osteopenia (Medical) Osteoporosis (Medical) Recurrent sinusitis (Medical) Seasonal allergies (Medical) ST IP Initial Evaluation Report BILLIARD TABLE ASSEMBLER Adult Cognitive Linguistic Eval Start: 12/30/22 17:35 Freq: Status: Active Protocol: Document 12/30/22 17:36 (Rec: 12/30/22 18:16 [id number]) Adult Cognitive Linguistic Evaluation Session Time Visit Start Time 13:15 Visit Stop Time 14:10 Total Visit Minutes 55 Referral Referring Provider hospitalist Reason for Referral cognitive and dysphagia Setting Assessment Location Acute Care Visit Type Note Type Initial evaluation Hearing Hearing Level Impaired Subjective Patient Report Pt seen upright in bed, however often shifts herself to a slumped or slid position. Informal Assessment Receptive Language Normal No Receptive Language Impairment(s) Comprehension of complex yes/ no questions,Following 2-step commands Expressive Language Normal No Expressive Language Impairment(s) Divergent naming,Expression of complex thoughts/ideas Pragmatic Language Normal Yes Speech Normal No Speech Impairment(s) Imprecise articulation, Decreased volume/intensity, Poor breath support Cognition Normal No Cognitive Impairment(s) Attention,Short-term memory, Executive functioning,Problem solving,Safety awareness, Impulsivity Formal Assessment Administration Complete Results ST administered Add[place]oke's cognitive examination (ACEIII) total score 52/100, scores less than 84/100 are indicative of cognitive deficits. Attention: Memory: 03/09 Fluency/generative namin Language: Visuospatial/exe function: patients greatest areas of deficit include attention, short term and working memory, generative naming/word finding, and visuospatial/ executive function/problem solving. Pt is largely oriented to time and place, and basic language is intact, with difficulty in higher language function (complex conversations, following multi -step directions) Findings/Results Language Function Mild-moderately impaired Cognitive Function Moderately impaired Findings Pt demonstrates moderate cognitive and language deficits post CVA, impacting safety and participation in IADLs. Pt would benefit from ongoing speech therapy at the acute and post acute level targeting attention, working memory, and problem solving in order to return to her PLOF and safely return home independently as able, with additional therapy as time allows to target motor speech deficits and intelligibility. Cognitive Communication Deficits Self-awareness of Cognitive- Situational awareness ( Communication Deficits recognition of problem in context;in real time) Impact on Functioning Activity Limits/Particip.Rest. Mod: General Tasks and Demands Household Tasks Interpersonal Interactions Community Safety Risks Sev: Being Left Alone at Home Reacting to Emergency Managing Medication Traveling Alone in Community Prognosis Prognosis Fair Plan of Care Speech-Language Treatment Yes Frequency 5x/wk Duration during acute stay and recommended for post acute care Patient/Caregiver Education Patient expressed understanding of evaluation, Patient expressed agreement with goals and treatment plans Short Term Goals 1. Client will complete basic functional problem solving and safety awareness tasks with 50% accuracy given mild/mod verbal, tactile and/or visual cues for daily living tasks in order to increase safe interaction with environment and decreased assistance from caregivers 2. Patient will recall targeted information, utilizing strategies as trained, following 5 min of distractive tasks, with at least 60% accuracy and mild cueing in order to increase safety and participation with functional activities and promote independence. Intermediate Goals Patient will develop functional, cognitive- linguistic-based skills and utilize compensatory strategies to communicate wants and needs effectively, maintain safety during ADL?s and participate socially in functional living environment Discharge Recommendations Inpatient rehab facility BILLIARD TABLE ASSEMBLER Clinical Swallow Evaluation Start: 12/30/22 17:35 Freq: Status: Active Protocol: Document 12/30/22 17:36 (Rec: 12/30/22 18:16 [id number]) Clinical Swallow Evaluation Session Time Visit Start Time 12:45 Visit Stop Time 13:15 Total Visit Minutes 30 Setting Assessment Location Acute Care Visit Type Note Type Initial evaluation Reported by Patient/Caregiver Other Symptoms Coughing,Difficulty swallowing liquids Current Diet Regular (IDDSI 7) Baseline Feeding Method Independent in self-feeding The IDDSI Framework Protocol: IDDSI.1 Objective Assessment Mental Status Alert,Cooperative Oral Integrity WFL Lip Function Mild impairment Observation of Lips at Rest Left sided weakness/Drooping Pucker Left sided weakness/drooping Lip Retraction Left sided weakness/Drooping Alternating Pucker/Lip Retraction Within normal limits Tongue Function Mild impairment Tongue Protrusion Deviates to the right,Reduced strength Tongue Lateralization Reduced strength Jaw Function Within normal limits Food and Liquid Trials Position During Assessment Upright (90 degrees) Liquids Trialed Thin (IDDSI 0) Solid Trials Soft & Bite-sized (IDDSI 6) Administration Type Cup single sip,Straw Oral Impairment Mildly impaired Oral Phase Comments reduced bolus control, managed with compensatory strategies. during eval with upright positioning, pt demonstrated no overt s/s of asp/pen. However, pt demonstrates tendency to shift and has difficulty in bed mobility. Pt requires caregiver support to ensure appropriate positioning for intake. Pharyngeal Impairment Within normal limits Strategies Attempted Other Response/Comments small sips, swallow when ready , ensure upright positioning Jaqui Swallow Protocol No Results attempted, pt did not recall directives for multiple swallows. The IDDSI Framework Protocol: IDDSI.1 Findings Swallowing Function Dysphagia unspecified Swallowing Function Comments ST to monitor/re-eval tomorrow to assess need for MBS Severity of Swallow Impairment Mildly impaired Contributing Factors to Swallow Reduced alertness or attention Impairment ,Difficulty following directions Prognosis Good Comment Pt demonstrated likely mild oropharyngeal dysphagia, which may be able to be managed with compensatory strategies and more intensive rehab post acute. ST provided pt education on swallow function, findings and trained on compensatory strategies. ST to re-assess tomorrow to determine if MBS is needed and continue targeting of compensatory strategies. Recommendations Swallowing Treatment Yes Frequency 5x/wk as needed Recommended Liquids Thin (IDDSI 0) Safety Precautions/Swallowing Remain upright (90 degrees) Recommendations during all oral intake,Needs verbal cues to use recommended strategies,Small bites and sips when eating Medication Recommendations As Tolerated Education Patient/Caregiver Education Patient expressed understanding of evaluation, Patient expressed agreement with goals & treatment plans Goals Long-term Goals Patient will utilize compensatory strategies given mild/mod verbal, and visual cues with optimum safety and efficiency of swallowing function on P.O. intake with min overt signs and symptoms of aspiration for the highest appropriate diet level
[2022-12-30] MEDS: ATORVASTATIN 20 MG TABLET 80 MG PO (20:25)
[2022-12-30] MEDS: ESCITALOPRAM 10 MG TABLET 15 MG PO (20:25)
[2022-12-31 03:00] VITALS: BP 164/83; PULSE 69; RESP 16; TEMP 35.8; O2SAT 95
[2022-12-31 07:00] VITALS: BP 170/91; PULSE 77; RESP 16; TEMP 36.1; O2SAT 97
[2022-12-31 07:08] LABS: Blood Urea Nitrogen 16 mg/dL (7-17); Calcium 9.2 mg/dL (8.4-10.2); Carbon Dioxide 26 mmol/L (22-32); Chloride 104 mmol/L (98-107); Estimated Glomerular Filt Rate > 60 mL/min (>60); Glucose 107 mg/dL (80-110); HEMOLYSIS 17 (0-50); Magnesium 1.8 mg/dL (1.6-2.3); Potassium 3.9 mmol/L (3.4-5.1); Sodium 136 mmol/L (137-145)
--- NOTE | 2022-12-31 09:44 | PT.IPTN ---
Current Diagnoses Cerebral infarction, unspecified (12/29/22) Physical Therapy Treatment Note M2 PT-IP Current Condition Start: 12/30/22 15:22 Freq: NEEDED Status: Active Protocol: Document 12/30/22 11:36 AB (Rec: 12/30/22 15:38 AB [id number]) Physical Therapy Current Condition Current Condition Evaluation Date 12/30/22 Treatment Diagnosis R CVA; difficulty in walking Onset Date 12/29/22 M3 PT-IP Subjective Start: 12/30/22 15:22 Freq: NEEDED Status: Active Protocol: Document 12/31/22 10:12 TS (Rec: 12/31/22 10:28 TS [id number]) Subjective Physical Therapy Visit Type Type Treatment Note Visit Start Time 09:44 Visit Stop Time 10:07 Total Visit Minutes 23 Number of AUTOMATION MECHANIC Visits 1 Physical Therapy Visit Comments Patient Comments Pt found resting in bed, reports she is feeling better today, agreeable to PT. M4 PT-IP Mobility and Gait Start: 12/30/22 15:22 Freq: NEEDED Status: Active Protocol: Document 12/31/22 10:12 TS (Rec: 12/31/22 10:28 TS [id number]) PT-Bed Mobility Assessment Supine to Sit Supine to Sit Minimal Assistance,1 Person Assistance Scooting Scooting to Edge of Bed Moderate Assistance PT-Transfer Assessment Sit to and From Stand Sit to and from Stand Moderate Assistance,1 Person Assistance,Use of Upper Extremities Equipment Transfer Assistive Device Gait Belt,Front Wheeled Walker Orthotic/Prosthetic Devices or Brace: No Transfers Transfer Destination Chair Transfer Technique Stand Step Pivot Transfer Ability Level of Assist Maximum Assistance,1 Person Assistance,Use of Upper Extremities Comments Mobility Comments Pt found resting in bed, agreeable to PT. Supine to sit HOB elevated Sera, pt has L sided neglect, cued pt to use LUE to assist in uprighting trunk. She scooted to EOB ModA with use of transfer pad and cues for BUE support. Sitting EOB pt leans to L side, cued to maintain midline with UE support. Sit to stand x2 ModA with FWW, pt required tactile cues for LUE on FWW, pt tends to release L hand from FWW. In standing pt leans heavily to L side, requires cues for weight shift to R side. She performed stand step pivot to chair MaxA w/FWW, required cues for weight shift to R side, pt lets go of FWW mcc through transfer requiring MaxA for pivot into chair. Pt was left in chair, SO in room, all needs met. Gait Assessment Gait Gait Assistance Required: Maximum Assistance Distance (Feet) 2 Able to Maintain Weight Bearing Status Yes During Gait Assistive Devices Assistive Device Gait Belt,Front Wheeled Walker Orthotic/Prosthetic Devices or Brace: No Gait Deviations General Gait Pattern Decreased Stride Length, Decreased Feet Clearance, Lateral Trunk Lean,Step-to Gait Factors Limiting Gait Function Factors Limiting Gait Function Decreased Activity Tolerance, Decreased Strength,Difficulty Following Directions, Incoordination,Limited Range of Motion,Pain,Poor Balance, Poor Safety Awareness Comments Gait Comments See mobility comments PT-Balance Assessment Sitting Balance and Reactions Static Sitting Balance Ability Fair Dynamic Sitting Balance Ability Poor Standing Balance and Reactions Static Standing Balance Ability Poor Dynamic Standing Balance Ability Poor Device Used FWW Comments Other Balance Tests/Deviations/Treatment See mobility comments. : M5 PT-IP Objective Assessments Start: 12/30/22 15:22 Freq: NEEDED Status: Active Protocol: Document 12/30/22 11:36 AB (Rec: 12/30/22 15:38 AB [id number]) Orientation Orientation/Cognition Level of Alertness Alert Orientation Name Safety Awareness Decreased Safety Awareness Memory Description 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 Comments with slight confusion Gross Range of Motion Lower Extremity ROM Assessment Left Impaired Impairments L ankle tightness and in PF at rest Strength Lower Extremity Strength Assessment Left Impaired Hip 3+/5 Knee 3+/5 M6 PT-IP Treatment Start: 12/30/22 15:22 Freq: NEEDED Status: Active Protocol: Document 12/31/22 10:12 TS (Rec: 12/31/22 10:28 TS [id number]) Physical Therapy Treatment Education Education Provided Safety M7 PT-IP Assessment and Plan Start: 12/30/22 15:22 Freq: NEEDED Status: Active Protocol: Document 12/31/22 10:12 TS (Rec: 12/31/22 10:28 TS [id number]) PT Summary Assessment and Plan Potential Rehabilitation Potential Fair Summary Impairments ROM,Strength,Balance, Coordination,Sensation,Tone, Cognition,Bed Mobility, Transfers,Gait,Activity Tolerance Progress Towards Goals Slow Progress due to Medical Issues Assessment Summary Concepcion made some progress with her mobility but continues to be limited be L sided weakness from CVA. She required decreased assist this session for supine to sit to Sera for uprighting trunk, MAEVE is weak and unable to assist. She continues to demonstrate L sided neglect sitting EOB and in standing with FWW, pt leans heavily to L side requiring cues for weight shift to R side. She performed stand step pivot transfer to chair with FWW and MaxA with max cues. She let go of the FWW mcc through transfer and required MaxA to sit into chair. PT continues to recommend SNF vs Acute rehab at this time. Goals Bed Mobility Goal Standby Assistance Transfer Goal Minimal Assistance,Front Wheeled Walker Gait Goal Minimal Assistance,Front Wheel Walker Gait Distance 50 Other Goals improve bed mobility, transfers, ambulation using FWW/LRAD 150 ft SBA up/down 2 steps R rail SBA Days to Meet Goals 10 Frequency of Treatment Frequency Of Treatment Once a Day Treatment Plan Physical Therapy Treatment Plan Bed Mobility Training,Transfer Training,Gait Training, Therapeutic Exercise,Balance Retraining,Discharge Planning, Hot or Cold Pack,Neuromuscular Re-ed,Coordination Retraining ,Manual Therapy Precautions Other Precautions falls Recommendations To Nursing Amount of Assist Needed 2 Person Assist Discharge Recommendations PT Discharge Recommendations SNF vs Acute Rehab Transportation Needs at Discharge Wheelchair/Cabulance
[2022-12-31] MEDS: BUDESONIDE 3 MG CAP PO (09:52)
[2022-12-31] MEDS: SODIUM CHLORIDE 0.9% FLUSH 10 ML IV ×2 (09:53→21:22)
[2022-12-31] MEDS: CLOPIDOGREL 75 MG TABLET PO (09:53)
[2022-12-31] MEDS: ASPIRIN EC 81 MG TABLET PO (09:53)
[2022-12-31] MEDS: HEPARIN 5,000 UNIT/ML VIAL 5000 UNIT SUBCUT ×2 (09:53→20:43)
[2022-12-31 11:00] VITALS: BP 144/76; PULSE 85; RESP 16; TEMP 36.5; O2SAT 96
--- NOTE | 2022-12-31 11:17 | ST.IPTN ---
Visit Care Team Role Provider Type Buster Rios MD Primary Care Provider Physician Address: [address] [place] [address], [address], [place], [address] John yDer MD Emergency Provider Physician Referring Provider Address: [address] [place] [address], [id number] Bubba Gaming MD Admit Provider Physician Attending Provider Address: [address] [place] [address], [id number] Fax: PROFESSOR [employer] ENVIRONMENTAL STUDIES Treatment Note PROF[employer]OR [employer]ONMENT[employer] Treatment Note Start: 12/30/22 17:35 Freq: Status: Active Protocol: Document 12/31/22 10:39 CG (Rec: 12/31/22 11:17 CG [id number]) Speech Pathology Treatment Note Session Time Visit Start Time 10:15 Visit Stop Time 10:40 Total Visit Minutes 25 Visit Information Visit Number 2 Setting Treatment Setting Acute Care Visit Type Note Type Treatment Note General Information Patient History Per H&P: Ms. Berumen is an 87W with PMH collagenous colitis, TIA who presents to the hospital after being found down. She can not recall when she last felt normal. She knows she fell, but she doesn' t know when that happened. She was found on the floor. She came in to the hospital with notable left sided weakness of her arm and leg and drooping of the left side of her mouth. In the ED workup was done, vitals notable for afebrile, heart rate 60s, blood pressure 160s/70s, sats 97% on room air. Labs reviewed by me and notable for WBC 10.3, hgb 16.2 , plts 267. Na 134, creatinine 0.77. Trop 0.012. CK 318. Head CT shows hypoattenuation of the right basal ganglia. CTA head/neck shows no high grade stenosis. CT c-spine with no acute process. Shoulder xray with no acute process. She was ordered for aspirin and admitted for further treatment. On the floor she underwent MRI which showed right thalamic stroke. Elbow xray with no acute process. ECHO shows no acute process with EF 60-65%. Pt was referred to PROFESSOR OF ENVIRONMENTAL STUDIES due to nursing observing coughing on thin liquids in addition to sequalae of CVA including L sided facial droop/weakness and cognitive deficits exacerbated by CVA. Subjective Observations/Patient Presentation Pt found upright in hospital chair with significant other present in the room. She was propped up with pillows and seated on right side of the chair. She did present with mild left sided facial droop. she was agreeable and alert, though pleasantly confused at times throughout treatment. Agreeable to PO trials in addition to cognitive training /tasks. Chief Complaint(s) Swallowing,Cognitive Patient Knowledge/Awareness of PROFESSOR OF ENVIRONMENTAL STUDIES Role Good in Treatment Parent/Caretake Knowledge/Awareness of Good PROFESSOR OF ENVIRONMENTAL STUDIES Role in Treatment Objective Short Term Goals 1. Client will complete basic functional problem solving and safety awareness tasks with 50% accuracy given mild/mod verbal, tactile and/or visual cues for daily living tasks in order to increase safe interaction with environment and decreased assistance from caregivers 2. Patient will recall targeted information, utilizing strategies as trained, following 5 min of distractive tasks, with at least 60% accuracy and mild cueing in order to increase safety and participation with functional activities and promote independence. Mcc Goals Patient will develop functional, cognitive- linguistic-based skills and utilize compensatory strategies to communicate wants and needs effectively, maintain safety during ADL?s and participate socially in functional living environment Treatment Activities Pt seen for 1:1 dysphagia treatment and cognitive- linguistic treatment. For dysphagia treatment, ST assessed diet tolerance with therapeutic PO trials of regular solids and thin liquids in order to determine safest and most efficient least restrictive diet. Pt presented with dayan crackers , pudding, and about 4-6oz of thin water via straw. Pt consumed dayan crackers dipped in pudding and dry. Pt able to feed self independently, however utilized only right hand. For both moistened and dry dayan cracker Pt demonstrated small bites, slow rate, prolonged mastication however adequate bolus formation and control, mild left sided residue on hard palate, piecemeal deglutition, suspected delay in swallow, no overt s/s of aspiration or Pt reporting globus sensation. Pt independently alternated liquids/solids to assist with clearance. For thin liquids via straw Pt demonstrated adequate sip size and rate, good oral acceptance and containment, delayed ap transport (~5 seconds), suspected delay in swallow, no overt s/s of aspiration, clear vocal quality post swallows. Pt independently recalled 1 safe swallowing strategy prior to initation of PO trials (effortful swallow) . ST educated Pt on additional safe swallowing strategies, such as sitting upright 90% during meals, and checking for residue post meals. ST assessed memory recall of safe swallowing strategies utilizing spaced retrieval like therapy approach with delayed recall about 5 minutes . Pt able to recall 2/3 safe swallowing strategies after 5 minute delay requiring mild verbal cue, however Pt able to recall safe swallowing strategy when provided sentence completion cue. ST continues to recommend regular solids and thin liquids, however regular solids cut into small pieces and use of safe swallowing strategies in place. ST communicated with nursing regarding safe swallowing strategies and placed safe swallowing strategy form on wall in patient room. For cognitive-linguistic therapy, ST assessed problem solving utilizing medication management task involving Pt identifying errors in a pillbox in order to promote independence and carryover. Pt reports she is independent with management her medications, which she manages utilizing a box at home, not a pillbox. Pt significant other reports Pt with observed difficulties managing medications d/t gradual changes in memory compared to baseline. Pt completed medication management task with about 75% accuracy requiring moderate verbal cues d/t difficulties recalling the targeted pill, however would occasionally independently re-read medication dosage instruction to assist with recall. ST communicated recommendation with Pt and Pt significant other in regards to use of pillbox, and having Pt significant other check pillbox for correct medication organization. Pt and Pt significant other verbalized understanding. Assessment Patient Response to Treatment Good Rehab Potential Good Impairments Identified Cognitive communication, Swallow Progress Towards Goals Good Progress Assessment of Improvement As noted, Pt had 25% of errors of cognitive-linguistic task. ST recommends Pt with supervision managing medications with use of pillbox. Pt tolerated PO trials of regular solids and thin liquids. ST continues to recommend regular solids and thin liquids with regular solids cut into small pieces and use of safe swallowing strategies such as effortful swallow, sitting upright 90 degrees and checking mouth post meals for residue. Pt would be most appropriate discharged to long-term facility with continuation of cognitive-linguistic therapy in order to develop and instruct in compensatory strategies as well as caregiver education. Reviewed with Patient Goals,Progress Being Made Plan Therapeutic Contents Cognitive-Linguistic Training, Compensatory Swallowing Training,Swallowing/Feeding Provided Patient/Caregiver Instruction Plan of Care
--- NOTE | 2022-12-31 12:43 | PM.PN.1 ---
Subjective Subjective Interval history: Still weak especially in left arm, leg less so. Speech is slurred. No dyspnea. Exam Vital Signs (past 8 hours): - 12/31/22 07:00 12/31/22 11:00 Temperature 97.0 F L 97.7 F Pulse Rate 77 85 Respiratory Rate 16 16 Blood Pressure 170/91 H 144/76 H Pulse Oximetry 97 96 Oxygen Flow Rate 0 Oxygen Delivery Method Room Air Oxygen Flow Rate 0 Narrative Exam Narrative: NAD Lungs clear with normal effort CV RRR without M/G/R Abdomen Soft, NT/ND No rash No leg edema Left arm weaker than leg. Slurred speech. Objective Labs 12/30/22 06:20 12/31/22 06:20 Labs: Laboratory Results - last 24 hr 12/31/22 06:20 Sodium 136 L Potassium 3.9 Chloride 104 Carbon Dioxide 26 BUN 16 Creatinine 0.64 Estimated GFR > 60 BUN/Creatinine Ratio 25.0 H Glucose 107 Calcium 9.2 Magnesium 1.8 PFSH Medical History Osteoarthritis Seasonal allergies Depression (~1999) Headache Osteoporosis Osteopenia Mumps Measles Chicken pox Recurrent sinusitis Fecal incontinence (~1999) Collagenous colitis (~2003) Breast cancer (~2001) Social History household members: significant other Smoking Status: Never smoker second hand exposure: No alcohol intake: current substance use type: does not use Assessment & Plan Assessment & Plan narrative: 1. Acute thalamic CVA, POA and improving. -MRI shows right thalamic stroke -she has notable significant deficits with left upper and lower extremity and left facial droop -ordered asa, plavix, and statin -ECHO shows no acute process -check lipids, a1c -ordered pt, ot, speech therapy -will need SNF 2. Collagenous colitis, POA and stable. -continue budesonide 3. Depression, POA and stable. -continue ssri Discharge planning: SNF when able. Time Spent With Patient Time with patient: 30 to 49 minutes with 50% spent counseling/coordinating care
--- NOTE | 2022-12-31 13:43 | CM.DPC ---
DCP Cont. Reviewed EMR for status updates and cont. d/c needs. Met with pt, son, and SO. Consulted with Hospitalist and PT. Plan is for d/c to acute rehab, clinicals faxed to [facility], they are reviewing. D/C likely 01/01. Family aware. Cont. to monitor for acceptance to [facility].
--- NOTE | 2022-12-31 13:53 | OT.IP.TRT ---
Current Diagnoses Cerebral infarction, unspecified (12/29/22) Occupational Therapy Treatment Note M2 OT-IP Current Condition Start: 12/30/22 11:38 Freq: Status: Active Protocol: Document 12/30/22 10:10 [facility] (Rec: 12/30/22 12:05 [facility] [id number]) Occupational Therapy Current Condition Current Condition Evaluation Date 12/30/22 Treatment Diagnosis Right Thalamic CVA Diagnosis Onset Date 12/29/22 M3 OT- IP Subjective and Pain Start: 12/30/22 11:38 Freq: Status: Active Protocol: Document 12/31/22 13:53 [facility] (Rec: 12/31/22 16:36 [facility] [id number]) OT- Subjective Occupational Therapy Visit Type Type Treatment Note Visit Start Time 13:53 Visit Stop Time 14:43 Total Visit Minutes 50 Occupational Therapy Visit Comments Patient Comments Pt eating lunch and her son and boyfriend present in the room. Patient/Caregiver Goals TO get better. OT Pain Assessment Pain When Pain Assessed At Rest Pain Present Pain Present Denied Pain M4 OT- IP ADL's Start: 12/30/22 11:38 Freq: Status: Active Protocol: Document 12/31/22 13:53 [facility] (Rec: 12/31/22 16:36 [facility] [id number]) OT [id number] General Evaluation Self-Feeding Ability Maximum Assistance Areas Needing Assistance Bringing Utensil to Mouth, Cutting Food,Drinking From Cup /Glass,Loading Utensil,Opening Containers Comments OT Self-Feeding Comments Pt needing MAXA to assist to hold her LUE in order to eat. Pt needing cues to swallow as pt tends to hold the fluid in her mouth. Pt needing cues to clear her mouth with her tongue and with fluids. OT ADL-Grooming General Evaluation Grooming Ability Maximum Assistance Comments OT Grooming Comments Able to hold her LUE so able to assist to wash her face. Pt able to do all need with right hand. Pt tends to neglect use of salazar left hand. OT ADL-Oral Care General Eval Oral Care Ability Standby Assistance Areas of Assistance Retrieving/Set-Up of Items Comments Oral Care Comments Pt able to hold toothpaste with her left hand so able to take the cap off with her right hand. Pt needing assist to hold her LUE to hold the basin so able to spit. OT ADL-Dressing Comments OT Dressing Comments Not performed. OT ADL-Toileting Comments OT Toileting Comments Pt not having to go at this time. Pt having a purewick in place. OT ADL-Bathing Comments OT Bathing Comments Sponge bath more appropriate at this time. M5 OT- IP IADL's Start: 12/30/22 11:38 Freq: Status: Active Protocol: Document 12/30/22 10:10 [facility] (Rec: 12/30/22 12:05 [facility] [id number]) OT-Instrumental Activities of Daily Living Deficits IADL Deficits Identified Deficits Home Safety Awareness Awareness of Need for Assistance at Home Decreased Awareness Home Safety Comments Pt insistent that she is able to do her IADL needs, however pt boyfriend states pt has been having memory issues which causes concerns for her safety and completeness of tasks. Medication Management Medication Management Comments Concerns for safety by boyfriend. Money Management Money Management Caregiver Provides Assistance Meal Preparation Meal Preparation Comments Pt able to do simple meal prep such as putting together a sandwich. Dining Services Director Dining Services Director Comments Per boyfriend pt having trouble to keep up and do. Driving Driving Comments Pt not driving anymore as her boyfriends drives her to the gym, appointments,etc. M6 OT- IP Functional Cognition Start: 12/30/22 11:38 Freq: Status: Active Protocol: Document 12/31/22 13:53 [facility] (Rec: 12/31/22 16:36 [facility] [id number]) Cognitive Factors Limiting Selfcare Function Cognitive Ability Level of Alertness Alert Patient Orientation Name,Place Attention Span Ability Capable of Focused Attention, Capable of Sustained Attention Ability to Follow Commands Able to Follow One Step Commands with Increased Time, Able to Follow One Step Commands with Repetition Memory Description 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,Working Impaired Safety Awareness Underestimates Need for Assistance Cognitive Comments Cognitive Assessment Comments Pt having decreased safety awareness of not able to recall use of call light. educated pt on use of call light and asked pt what she would do if needing to use the bathroom, I would just get myself up. Reiterated at this time pt is not safe to get up on her own. OT- Vision and Hearing OT- Vision Assessment Vision Assessment Comments Pt not able to follow directions for visual tracking and getting too distracted. M8 OT- IP Objective Assessments Start: 12/30/22 11:38 Freq: Status: Active Protocol: Document 12/31/22 13:53 [facility] (Rec: 12/31/22 16:36 [facility] [id number]) OT-Muscle Tone Assessment Muscle Tone WNL Yes Comments Muscle Tone Comments Increased tone noted today throughout her LUE. M9 OT- IP Assessment and Plan Start: 12/30/22 11:38 Freq: Status: Active Protocol: Document 12/31/22 13:53 [facility] (Rec: 12/31/22 16:36 [facility] [id number]) OT Summary Assessment and Plan Potential Rehabilitation Potential Good Analytic Complexity at Evaluation High Summary OT Impairments Pain,Range of Motion,Strength, Balance,Coordination,Sensation ,Functional Cognition, Functional Mobility,Self- Feeding,Grooming,Dressing, Toileting,Bathing,Toilet Transfers,Shower Transfers, Activity Tolerance Progress Towards Goals Slow Progress due to Medical Issues,Slow Progress due to Activity Tolerance,Slow Progress due to Cognition Assessment Summary Pt increased tone today for LUE. Pt having pocketing to left side on her mouth and needing cues to clear her mouth and also to swallow as pt tends to hold the fluids in her mouth. Pt's neglects her LUE and needing cues to incorporate during ADL needs and also needing physical assist due to her weakness. Pt would benefit from acute rehab versus skilled rehab to maximize her level of independence. Pt's son states after going to rehab looking into assisted living for his mom. Goals Self-Feeding Goal Independent Grooming Goal Independent Dressing Goal Standby Assistance Toileting Goal Standby Assistance Bathing Goal Standby Assistance Toilet Transfer Goal Standby Assistance Shower Transfer Goal Standby Assistance Days to Meet Goals 40 Frequency of Treatment Frequency Of Treatment Once a Day Treatment Plan OT Treatment Plan ADL Training,Functional Cognition Training,Functional Mobility,Neuromuscular Re- education,Vision Retraining, Discharge Planning Discharge Recommendations OT Discharge Recommendations SNF vs Acute Rehab Transportation Needs at Discharge Wheelchair/Cabulance
[2022-12-31 15:00] VITALS: BP 136/61; PULSE 78; RESP 14; TEMP 36.6; O2SAT 96
[2022-12-31 19:00] VITALS: BP 132/59; PULSE 75; RESP 18; TEMP 36.6; O2SAT 96
[2022-12-31] MEDS: ESCITALOPRAM 10 MG TABLET 15 MG PO (20:43)
[2022-12-31] MEDS: ATORVASTATIN 20 MG TABLET 80 MG PO (20:43)
[2022-12-31 23:00] VITALS: BP 180/67; PULSE 86; RESP 19; TEMP 36.4; O2SAT 97
[2023-01-01 03:00] VITALS: BP 151/63; PULSE 73; RESP 16; TEMP 36.3; O2SAT 94
[2023-01-01] MEDS: ASPIRIN EC 81 MG TABLET PO (08:24)
[2023-01-01] MEDS: CLOPIDOGREL 75 MG TABLET PO (08:25)
[2023-01-01] MEDS: HEPARIN 5,000 UNIT/ML VIAL 5000 UNIT SUBCUT (08:25)
[2023-01-01] MEDS: BUDESONIDE 3 MG CAP PO (08:26)
[2023-01-01] MEDS: SODIUM CHLORIDE 0.9% FLUSH 10 ML IV (08:27)
[2023-01-01 08:45] VITALS: BP 129/70; PULSE 91; RESP 16; TEMP 37; O2SAT 94
--- NOTE | 2023-01-01 11:30 | ST.IPTN ---
Visit Care Team Role Provider Type Buster Rios MD Primary Care Provider Physician Address: [address] [place] [address], [address], [place], [address] John Dyer MD Emergency Provider Physician Referring Provider Address: [address] [place] [address], [id number] Bubba Gaming MD Admit Provider Physician Attending Provider Address: [address] [place] [address], [id number] Fax: [facility] Treatment Note GRAIN THRESHER Treatment Note Start: 12/30/22 17:35 Freq: Status: Active Protocol: Document 01/01/23 11:21 SUREKHA (Rec: 01/01/23 11:28 SUREKHA [id number]) Speech Pathology Treatment Note Session Time Visit Start Time 10:15 Visit Stop Time 10:40 Total Visit Minutes 25 Visit Information Visit Number 3 Setting Treatment Setting Acute Care Visit Type Note Type Treatment Note General Information Patient History Per H&P: Ms. Berumen is an 87W with PMH collagenous colitis, TIA who presents to the hospital after being found down. She can not recall when she last felt normal. She knows she fell, but she doesn' t know when that happened. She was found on the floor. She came in to the hospital with notable left sided weakness of her arm and leg and drooping of the left side of her mouth. In the ED workup was done, vitals notable for afebrile, heart rate 60s, blood pressure 160s/70s, sats 97% on room air. Labs reviewed by me and notable for WBC 10.3, hgb 16.2 , plts 267. Na 134, creatinine 0.77. Trop 0.012. CK 318. Head CT shows hypoattenuation of the right basal ganglia. CTA head/neck shows no high grade stenosis. CT c-spine with no acute process. Shoulder xray with no acute process. She was ordered for aspirin and admitted for further treatment. On the floor she underwent MRI which showed right thalamic stroke. Elbow xray with no acute process. ECHO shows no acute process with EF 60-65%. Pt was referred to [facility] due to nursing observing coughing on thin liquids in addition to sequalae of CVA including L sided facial droop/weakness and cognitive deficits exacerbated by CVA. Subjective Observations/Patient Presentation Pt found upright in hospital bed with significant other present in the room. She did present with mild left sided facial droop. Pt awake, alert and agreeable to PO trials and cognitive training/tasks. Pt did report she was feeling tired this date. Chief Complaint(s) Swallowing,Cognitive Patient Knowledge/Awareness of GRAIN THRESHER Role Good in Treatment Parent/Caretake Knowledge/Awareness of Good GRAIN TH[facility] Role in Treatment Objective Short Term Goals 1. Client will complete basic functional problem solving and safety awareness tasks with 50% accuracy given mild/mod verbal, tactile and/or visual cues for daily living tasks in order to increase safe interaction with environment and decreased assistance from caregivers 2. Patient will recall targeted information, utilizing strategies as trained, following 5 min of distractive tasks, with at least 60% accuracy and mild cueing in order to increase safety and participation with functional activities and promote independence. Residential Goals Patient will develop functional, cognitive- linguistic-based skills and utilize compensatory strategies to communicate wants and needs effectively, maintain safety during ADL?s and participate socially in functional living environment Treatment Activities Pt seen for 1:1 dysphagia treatment and cognitive- linguistic treatment. For dysphagia treatment, ST assessed diet tolerance with therapeutic PO trials of regular solids and thin liquids in order to determine safest and most efficient least restrictive diet. Pt presented with dayan crackers , 4 oz of thin water via straw . Pt able to feed self independently, however utilized only right hand. For regular solids, Pt demonstrated small bites, slow rate, prolonged mastication however adequate bolus formation and control, mild left sided residue on hard palate, piecemeal deglutition, suspected delay in swallow, no overt s/s of aspiration or Pt reporting globus sensation. Pt required mild verbal cues to alternate liquids/solids to assist with clearance compared to yesterday with Pt independently alternating liquids/solids. For thin liquids via straw Pt demonstrated adequate sip size and rate, good oral acceptance and containment, delayed ap transport (~5 seconds), suspected delay in swallow, no overt s/s of aspiration, clear vocal quality post swallows. Pt recalled 1/3 safe swallowing strategies taught during treatment session yesterday. Pt able to recall 3/3 safe swallowing strategies provided sentence completion cues. ST educated Pt on safe swallowing strategies, such as sitting upright 90% during meals, and checking for residue post meals. ST assessed memory recall of safe swallowing strategies utilizing spaced retrieval like therapy approach with delayed recall about 5 minutes. Pt able to recall 2/3 safe swallowing strategies after 5 minute delay requiring mild verbal cue, however Pt able to recall safe swallowing strategy when provided sentence completion cue. ST continues to recommend regular solids and thin liquids, however regular solids cut into small pieces and use of safe swallowing strategies in place. For cognitive-linguistic therapy, ST assessed problem solving utilizing medication management task involving Pt identifying errors in a pillbox in order to promote independence and carryover. Pt completed medication management task with about 20% accuracy requiring moderate verbal cues d/t difficulties recalling the targeted pill, however would occasionally independently re-read medication dosage instruction to assist with recall. Pt with decreased accuracy on task this date, which may be d/t Pt reporting lethargy and d/t cognitive deficits. ST communicated recommendation with Pt and Pt significant other in regards to use of pillbox, and having Pt significant other check pillbox for correct medication organization. Pt and Pt significant other verbalized understanding. Assessment Patient Response to Treatment Good Rehab Potential Good Impairments Identified Cognitive communication, Swallow Progress Towards Goals Good Progress Assessment of Improvement As noted, Pt had 80% of errors of cognitive-linguistic task. ST recommends Pt with supervision managing medications with use of pillbox. Pt tolerated PO trials of regular solids and thin liquids. ST continues to recommend regular solids and thin liquids with regular solids cut into small pieces and use of safe swallowing strategies such as effortful swallow, sitting upright 90 degrees and checking mouth post meals for residue. Pt would be most appropriate discharged to nursing home facility with continuation of cognitive-linguistic therapy in order to develop and instruct in compensatory strategies as well as caregiver education. Reviewed with Patient Goals,Progress Being Made Plan Therapeutic Contents Cognitive-Linguistic Training, Compensatory Swallowing Training,Swallowing/Feeding Provided Patient/Caregiver Instruction Plan of Care
--- NOTE | 2023-01-01 11:37 | PT.IPTN ---
Current Diagnoses Cerebral infarction, unspecified (12/29/22) Physical Therapy Treatment Note M2 PT-IP Current Condition Start: 12/30/22 15:22 Freq: NEEDED Status: Active Protocol: Document 12/30/22 11:36 AB (Rec: 12/30/22 15:38 AB [id number]) Physical Therapy Current Condition Current Condition Evaluation Date 12/30/22 Treatment Diagnosis R CVA; difficulty in walking Onset Date 12/29/22 M3 PT-IP Subjective Start: 12/30/22 15:22 Freq: NEEDED Status: Active Protocol: Document 01/01/23 12:22 TS (Rec: 01/01/23 12:37 TS [id number]) Subjective Physical Therapy Visit Type Type Treatment Note Visit Start Time 11:37 Visit Stop Time 11:58 Total Visit Minutes 21 Number of LINE UP MACHINE OPERATOR Visits 2 Physical Therapy Visit Comments Patient Comments Pt found resting in bed, spouse in room, reports she is not feeling well today, is agreeable to PT. M4 PT-IP Mobility and Gait Start: 12/30/22 15:22 Freq: NEEDED Status: Active Protocol: Document 01/01/23 12:22 TS (Rec: 01/01/23 12:37 TS [id number]) PT-Bed Mobility Assessment Supine to Sit Supine to Sit Moderate Assistance,1 Person Assistance Sit to Supine Sit to Supine Maximum Assistance,2 Person Assistance Scooting Scooting to Edge of Bed Moderate Assistance Scooting Up and Down in Bed Maximum Assistance PT-Transfer Assessment Sit to and From Stand Sit to and from Stand Moderate Assistance,1 Person Assistance,Use of Upper Extremities Equipment Transfer Assistive Device Gait Belt,Front Wheeled Walker Orthotic/Prosthetic Devices or Brace: No Comments Mobility Comments Supine to sit HOB elevated ModA for uprighting trunk and LLE assistance, pt cued for LUE support, could not follow cue. She scooted to EOB with ModA and use of transfer pad, pt was cued for BUE support and scooting hips forward. She sat EOB SBA with use of handrail for donning of gait belt. Sit to stand ModA with FWW, pt required cues for sequencing, has heavy lateral lean to L side. She ambulated ~2' from bed, reported feeling weak and LE's going to give out on her. Pt requested back to bed, MaxA x2 for supine to sit and scooting to HOB. Pt was left in bed with all needs met, SO in room. Gait Assessment Gait Gait Assistance Required: Maximum Assistance Distance (Feet) 2 Able to Maintain Weight Bearing Status Yes During Gait Assistive Devices Assistive Device Gait Belt,Front Wheeled Walker Orthotic/Prosthetic Devices or Brace: No Gait Deviations General Gait Pattern Decreased Stride Length, Decreased Feet Clearance, Lateral Trunk Lean,Step-to Gait Factors Limiting Gait Function Factors Limiting Gait Function Decreased Activity Tolerance, Decreased Strength,Difficulty Following Directions, Incoordination,Limited Range of Motion,Pain,Poor Balance, Poor Safety Awareness Comments Gait Comments See mobility comments PT-Balance Assessment Sitting Balance and Reactions Static Sitting Balance Ability Fair Dynamic Sitting Balance Ability Poor Standing Balance and Reactions Static Standing Balance Ability Poor Dynamic Standing Balance Ability Poor Device Used FWW Comments Other Balance Tests/Deviations/Treatment See mobility comments. : M5 PT-IP Objective Assessments Start: 12/30/22 15:22 Freq: NEEDED Status: Active Protocol: Document 12/30/22 11:36 AB (Rec: 12/30/22 15:38 AB [id number]) Orientation Orientation/Cognition Level of Alertness Alert Orientation Name Safety Awareness Decreased Safety Awareness Memory Description 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 Comments with slight confusion Gross Range of Motion Lower Extremity ROM Assessment Left Impaired Impairments L ankle tightness and in PF at rest Strength Lower Extremity Strength Assessment Left Impaired Hip 3+/5 Knee 3+/5 M6 PT-IP Treatment Start: 12/30/22 15:22 Freq: NEEDED Status: Active Protocol: Document 01/01/23 12:22 TS (Rec: 01/01/23 12:37 TS [id number]) Physical Therapy Treatment Education Education Provided Safety M7 PT-IP Assessment and Plan Start: 12/30/22 15:22 Freq: NEEDED Status: Active Protocol: Document 01/01/23 12:22 TS (Rec: 01/01/23 12:37 TS [id number]) PT Summary Assessment and Plan Potential Rehabilitation Potential Fair Summary Impairments ROM,Strength,Balance, Coordination,Sensation,Tone, Cognition,Bed Mobility, Transfers,Gait,Activity Tolerance Progress Towards Goals Slow Progress due to Medical Issues Assessment Summary Concepcion continues to make slow progress with her mobility. She required ModA for supine to sit for uprighting her trunk and LLE assistance. She continues to require ModA for sit to stand with FWW, requires cues to grasp FWW with LUE, pt tends to let go after a few seconds. She continues to only take a few steps with gait and leans heavily to L side requiring cues for weight shift to R. Her standing remains very poor and is a high falls risk. She continues to have L sided neglect requiring tactile cues . PT continues to recommend SNF vs Acute rehab at this time. Goals Bed Mobility Goal Standby Assistance Transfer Goal Minimal Assistance,Front Wheeled Walker Gait Goal Minimal Assistance,Front Wheel Walker Gait Distance 50 Other Goals improve bed mobility, transfers, ambulation using FWW/LRAD 150 ft SBA up/down 2 steps R rail SBA Days to Meet Goals 10 Frequency of Treatment Frequency Of Treatment Once a Day Treatment Plan Physical Therapy Treatment Plan Bed Mobility Training,Transfer Training,Gait Training, Therapeutic Exercise,Balance Retraining,Discharge Planning, Hot or Cold Pack,Neuromuscular Re-ed,Coordination Retraining ,Manual Therapy Precautions Other Precautions falls Recommendations To Nursing Amount of Assist Needed 2 Person Assist Discharge Recommendations PT Discharge Recommendations SNF vs Acute Rehab Transportation Needs at Discharge Wheelchair/Cabulance
[2023-01-01 12:00] VITALS: BP 144/77; PULSE 68; RESP 16; TEMP 36.9; O2SAT 97
--- NOTE | 2023-01-01 12:03 | P.DS_ITS ---
History of Present Illness History of Present Illness Date Patient Seen: 01/01/23 Time Patient Seen: 12:04 Chief complaint: GLF no thinners Narrative: Ms. Berumen is an 87W with PMH collagenous colitis, TIA who presents to the hospital after being found down. She can not recall when she last felt normal. She knows she fell, but she doesn't know when that happened. She was found on the floor. She came in to the hospital with notable left sided weakness of her arm and leg and drooping of the left side of her mouth. In the ED workup was done, vitals notable for afebrile, heart rate 60s, blood pressure 160s/70s, sats 97% on room air. Labs reviewed by me and notable for WBC 10.3, hgb 16.2, plts 267. Na 134, creatinine 0.77. Trop 0.012. CK 318. Head CT shows hypoattenuation of the right basal ganglia. CTA head/neck shows no high grade stenosis. CT c-spine with no acute process. Shoulder xray with no acute process. She was ordered for aspirin and admitted for further treatment. On the floor she underwent MRI which showed right thalamic stroke. Elbow xray with no acute process. ECHO shows no acute process with EF 60-65%. Discharge Providers Provider Date of admission: 12/29/22 12:13 Discharge Date: 01/01/23 Primary care physician: Buster Rios MD Consults: 12/29/22 13:36 Consult to Discharge Planning Routine Comment: Consult to Occupational Therapy Evaluate & Treat Comment: Physician Instructions: Evaluate and treat Consult to Physical Therapy Evaluate & Treat Comment: Physician Instructions: Evaluate and Treat Consult to Speech Therapy Evaluate & Treat Comment: Physician Instructions: Evaluate and treat 12/29/22 13:55 Consult to Senior Microstrategy Developer Routine Comment: Discharge provider: Junaid Coleman MD Summary Hospital Course Discharge Diagnosis: 1. Thalamic CVA, present on admission and active. 2. Chronic collagenous colitis, present on admission and stable. 3. Depression, present on admission and stable. Hospital Course: The patient was admitted with weakness and left-sided weakness. Imaging revealed a thalamic stroke. The patient had some progress with physical therapy but required ongoing rehabilitation. It was felt that she would meet criteria for inpatient rehab and this process was pursued. Ultimately she was accepted for inpatient rehab to continue therapies for her medically significant left- sided weakness. Status at Discharge Cognitive/behavioral status at discharge: oriented Functional status at discharge: uses cane/walker Overall status at discharge: patient is progressing back to baseline Time Spent with Patient Time spent: Greater than 30 minutes Exam Vital Signs (past 8 hours): - 01/01/23 08:45 01/01/23 12:00 Temperature 98.6 F 98.5 F Pulse Rate 91 H 68 Respiratory Rate 16 16 Blood Pressure 129/70 144/77 H Pulse Oximetry 94 97 Oxygen Flow Rate 0 0 Oxygen Delivery Method Room Air Oxygen Flow Rate 0 Narrative Exam Narrative: Alert and oriented, fluent speech. No distress. Lungs are clear, normal effort. Her heart is regular, no murmur. Abdomen is soft, non-distended. Extremities are free of edema. She is left arm greater than left leg weakness. Objective ECG Impression: Normal sinus rhythm. Imaging MRI - head: Radiologist's impression: Brain: No intracranial bleeds or mass effects. There is cerebral volume loss for age. There are periventricular and deep white matter chronic small vessel ischemic changes. Brainstem appears normal. Diffusion-weighted images show a 1.6 x 1.2 cm focus of diffusion restriction with associated signal loss on ADC map within the right thalamus. Findings are compatible with an acute infarction. No adjacent vasogenic edema. No blooming artifact on GRE sequences to suggest hemorrhagic products. Normal intravascular flow voids are present. Skull and face: Calvarial bone marrow is normal in signal. Orbits are normal. Sinuses: Sinuses and mastoids are clear. IMPRESSION: Acute right thalamic infarction. Echo: Radiologist's impression: The ejection fraction is estimated to be 60-65%. Diastolic parameters suggest probable normal left ventricular diastolic function and normal filling pressures. The right ventricle is normal in size and function. No significant valvular abnormalities. Pulmonary artery pressures cannot be estimated because of the lack of a measurable TR jet velocity but the IVC suggests a CVP of around [address] scan - head: Radiologist's impression: IMPRESSION: 1. Moderate atherosclerotic vascular calcifications without high-grade stenosis, occlusion, dissection, or aneurysm in the visualized intracranial and neck arterial vasculature. 2. No acute osseous abnormalities or traumatic malalignment. Severe multilevel cervical spondylosis. If there is persistent or high clinical suspicion for acute cerebrovascular ischemia/stroke, more sensitive evaluation with brain MRI can be considered. Any quantitative measurements of stenosis were performed using NASCET criteria. Labs 12/30/22 06:20 12/31/22 06:20 [facility] Medical History Osteoarthritis Seasonal allergies Depression (~1999) Headache Osteoporosis Osteopenia Mumps Measles Chicken pox Recurrent sinusitis Fecal incontinence (~1999) Collagenous colitis (~2003) Breast cancer (~2001) Social History household members: significant other Smoking Status: Never smoker second hand exposure: No alcohol intake: current substance use type: does not use Discharge Assessment & Plan Assessment and Plan Assessment: 1. Thalamic CVA, present on admission and active. 2. Chronic collagenous colitis, present on admission and stable. 3. Depression, present on admission and stable. Plan of Treatment: Transfer to [facility] inpatient rehab for further rehabilitation. Discharge Plan Discharge Plan Patient Disposition: [facility] Other facility: [facility] Discharge orders & Medications Discharge Orders: Discharge (Order); Ordered 01/01/23 Ordered By: Junaid Coleman Prescriptions: New aspirin 81 mg Tablet,Delayed Release (Dr/Ec) 81 mg PO DAILY Qty: 30 0RF atorvastatin 20 mg Tablet 80 mg PO BEDTIME Qty: 30 0RF clopidogrel 75 mg Tablet 75 mg PO DAILY Qty: 30 0RF Continued multivitamin [Multiple Vitamins] 1 EACH tablet 1 tab PO QDAY Qty: 0 budesonide 3 mg capsule,delayed,extend.release See Rx Instructions .ROUTE .COMPLEX Qty: 90 0RF Dose Instruction: TAKE 1 CAPSULE BY MOUTH ONCE DAILY. MAY INCREASE TO 3 CAPSULES DAILY FOR 12 WEEKS DURING EXACERBATION. Rx Instructions: TAKE 1 CAPSULE BY MOUTH ONCE DAILY. MAY INCREASE TO 3 CAPSULES DAILY FOR 12 WEEKS DURING EXACERBATION. Currently taking 1 capsule daily escitalopram oxalate 10 mg tablet 15 mg PO BEDTIME Follow up/Referrals: Buster Rios MD [Primary Care Provider] - Discharge Health Status Multidrug resistant organism: No MDRO Diet/Activity/Treatments Diet: Diet as Tolerated Food texture: Regular Special Rehabilitation Services Rehab type: Physical therapy, Occupational therapy and Speech therapy Visit Report/Discharge Packet Instructions: Ischemic Stroke Discharge Data Primary Care Provider: Buster Rios Quality MIPS - DC The patient has a history of heart transplant or Left Ventricular Assist Device (LVAD). If yes, STOP here.: No The patient has current or prior documentation of left ventricular ejection fraction (LVEF) less than or equal to 40%, or moderate or severely depressed left ventricular systolic function.: No
--- NOTE | 2023-01-01 12:29 | CM.DPC ---
DCP Cont. Reviewed EMR for updates. [facility] is accepting pt after her d/c today. [facility] has been arranged for transport, family will pay privately. This CAMPGROUND MANAGER relayed the home medications that they will need to bring for her during her stay. No further d/c needs indicated at this time. Pt will be ready for d/c 3:30pm.
--- NOTE | 2023-01-01 16:08 | CM.DPNOTE ---
DCP Note Care e me delayed until 1640, RN coordinator aware, Care [facility] me will call BONILLA BRUMFIELD
== END 2023-01-01 16:53 | DRG 65 ==
LOC: ED 11:01 → AC 12:13
PROVIDERS: Admitting Provider Internal Medicine; Emergency Provider Emergency Medicine; PCP Student in an Organized Health Care Education/Training Program; Referring Provider Emergency Medicine; Visit Provider Internal Medicine
DX: I63.89 Other cerebral infarction (principal); I69.352 Hemiplegia and hemiparesis following cerebral infarction affecting left dominant side; K52.831 Collagenous colitis; R29.810 Facial weakness; F32.A Depression, unspecified; R47.81 Slurred speech; S40.012A Contusion of left shoulder, initial encounter; R29.709 NIHSS score 9; R29.711 NIHSS score 11; W18.11XA Fall from or off toilet without subsequent striking against object, initial encounter
CPT/HCPCS: 36415; 70450; 70496; 70498; 70551; 72125; 73030; 73070; 80048; 80053; 80061; 82550; 83036; 83735; 84484; 85025; 92507; 92526; 92610; 93010; 93306; 97162; 97167; 97530; 97535; 99285; J1644

== ENCOUNTER 2023-02-02 18:12 | Inpatient (IN) | payer MEDICARE, OTHER, SELFPAY ==
[2022-12-29 13:37] VITALS: BMI 18.8
[2023-02-02] VITALS (7 sets, daily range): BP systolic 116–141; BP diastolic 60–67; PULSE 76–91; RESP 16; TEMP 37.1; O2SAT 93–96
[2023-02-02] MEDS: MORPHINE 4 MG/ML INJ IV (21:45)
[2023-02-02 22:01] LABS: Add Manual Diff / Slide Review NO; Basophils Absolute Auto 100 /uL (0-100); Basophils Percent Auto 0.7 % (0-2); Eosinophils Absolute Auto 100 /uL (0-450); Eosinophils Percent Auto 0.6 % (2-4); Hematocrit 39.4 % (36-46); Hemoglobin 13.3 g/dL (12.0-16.0); Lymphocytes Absolute Auto 2200 /uL (1100-4500); Lymphocytes Percent Auto 14.3 % (25-40); Mean Corpuscular HGB Conc 33.7 % (30-36); Mean Corpuscular Hemoglobin 29.7 PG (26-34); Mean Corpuscular Volume 88.1 fL (80-100); Monocytes Absolute Auto 1100 /uL (0-900); Neutrophils Absolute Auto 11800 /uL (1500-7000); Neutrophils Percent Auto 77.4 % (50-75); Platelet Count 348 X10^3/uL (150-400); Red Blood Cell Count 4.47 X10^6/uL (4.0-5.2); Red Cell Distribution Width 13.6 % (11.6-14.8); White Blood Cell Count 15.2 X10^3/uL (4.5-11.0)
[2023-02-02 22:06] LABS: INR 1.2 (0.9-1.3); Prothrombin Time 14.3 SECONDS (9.4-12.5)
--- NOTE | 2023-02-02 22:23 | PC.NURSE ---
Family here. OK to leave voicemail for updates for Mark Berumen.
[2023-02-02 22:28] LABS: Alanine Aminotransferase 35 IU/L (<35); Albumin 3.6 g/dL (3.5-5.0); Albumin Globulin Ratio 1.2 (1.0-2.8); Alkaline Phosphatase 94 U/L (38-126); Aspartate Aminotransferase 28 IU/L (14-36); BUN Creatinine Ratio 37.3 (6-22); Bilirubin Total 0.9 mg/dL (0.2-1.3); Blood Urea Nitrogen 28 mg/dL (7-17); Calcium 9.7 mg/dL (8.4-10.2); Carbon Dioxide 27 mmol/L (22-32); Chloride 98 mmol/L (98-107); Estimated Glomerular Filt Rate > 60 mL/min (>60); Glucose 181 mg/dL (80-110); HEMOLYSIS < 15 (0-50); Lipase 45 U/L (23-300); Sodium 138 mmol/L (137-145); Total Protein 6.6 g/dL (6.3-8.2)
[2023-02-02 22:37] LABS: Potassium 2.3 mmol/L (3.4-5.1)
--- NOTE | 2023-02-02 22:44 | ED.LOWEXIN ---
HPI - Extremity Injury (Lower) General Chief Complaint: Extremity Injury, Lower Stated Complaint: LT INTERTROCHANERIC FEMUR FRACTURE/DISPLACED Time Seen by Provider: 02/02/23 22:44 Source: patient and family Mode of arrival: Wheelchair History of Present Illness HPI Narrative: 87-year-old woman with a history of collagenous colitis and in December of this year she was shown to have had a right thalamic stroke. Patient has been at [facility] in [facility] and apparently fell 10 days ago. Initial x-rays showed a nondisplaced intertrochanteric fracture that was felt to not need surgical intervention. She had additional imaging today with her orthopedist and the fracture is now displaced, pain is increasing and the orthopedist recommended that she be brought to the emergency department for evaluation of operative repair. She is having increased pain in the right hip. Was making some progress with her CVA rehabilitation at the nursing home facility. She has some mild speech difficulties and facial weakness but no fevers, cough chills abdominal pain chest pain palpitations. Related Data Home Medications Medication Instructions Recorded Confirmed multivitamin (Multiple Vitamins 1 tab PO QDAY ##0 08/13/16 12/30/22 tablet) escitalopram oxalate 10 mg tablet 15 mg PO BEDTIME 12/30/22 12/30/22 Previous Rx's Medication Instructions Recorded budesonide 3 mg See Rx Instructions .Route 11/06/22 capsule,delayed,extended release .COMPLEX #90 caps Allergies Allergy/AdvReac Type Severity Reaction Status Date / Time No Known Drug Allergies Allergy Verified 12/29/22 10:38 Review of Systems Review of Systems Narrative: Pertinent positive and negative findings as per HPI Patient History Medical History Osteoarthritis Seasonal allergies Depression (~1999) Headache Osteoporosis Osteopenia Mumps Measles Chicken pox Recurrent sinusitis Fecal incontinence (~1999) Collagenous colitis (~2003) Breast cancer (~2001) Social History household members: significant other Smoking Status: Never smoker second hand exposure: No alcohol intake: current substance use type: does not use Smoking Status: Never smoker alcohol intake frequency: 3 or more drinks per day Substance Use Type: does not use Exam Initial Vital Signs Initial Vital Signs: Vital Signs Temperature 98.7 F 02/02/23 18:32 Pulse Rate 91 H 02/02/23 18:32 Respiratory Rate 16 02/02/23 18:32 Blood Pressure 116/62 02/02/23 18:32 Pulse Oximetry 94 02/02/23 18:32 Oxygen Delivery Method Room Air 02/02/23 18:32 General: Frail-appearing woman, mild pain, Able to give a complete and coherent history. Well-nourished well-developed HEENT: Moist mucous membranes, normal sclera with reactive pupils, slight left facial droop Respiratory: Lungs are clear to auscultation, no wheezing no rales no rhonchi. Full and symmetrical air movement Cardiac: Regular rate and rhythm no murmurs no bruits Abdomen: Soft, nontender, good bowel tones, no flank pain Skin: Thin, Warm and dry, no rashes Neurologic: Mild dysarthria and facial droop and left-sided weakness secondary to her prior stroke. Extremities: Right leg is internally rotated for comfort foreshortened but neurovascularly intact. No significant bruising appreciated around the buttock or the hip Psych: Cooperative, appropriate insight and affect Course Orders Ordered: ED Orders 02/02/23 21:27 XR hip w pel if done LT 2V Stat 02/02/23 21:48 Complete Blood Count AUTO DIFF Stat Comprehensive Metabolic Panel Stat Lipase Stat Prothrombin Time INR Stat Type and Screen Stat 02/02/23 22:33 Urinalysis and Microscopic Stat 02/02/23 22:42 GI Panel (Film Array) Stat Ondansetron HCl (Ondansetron 4 Mg Odt) 4 mg PO NOW PRN PRN Reason: Nausea And Vomiting Ondansetron HCl (Ondansetron 4 Mg/2 Ml Inj) 4 mg IV NOW PRN PRN Reason: Nausea And Vomiting Discontinued Medications Morphine Sulfate (Morphine 4 Mg/Ml Inj) 4 mg IV NOW ONE Stop: 02/02/23 21:26 Last Admin: 02/02/23 21:45 Dose: 4 mg Documented By: AM Vital Signs Vital signs: Vital Signs - 8 hr 02/02/23 18:32 02/02/23 22:19 02/02/23 22:21 Temperature 98.7 F Pulse Rate 91 H 82 Respiratory Rate 16 Blood Pressure 116/62 131/67 Pulse Oximetry 94 96 Oxygen Delivery Method Room Air Room Air 02/02/23 22:21 Temperature Pulse Rate 85 Respiratory Rate Blood Pressure Pulse Oximetry 96 Oxygen Delivery Method Room Air MDM - Extremity Injury (Lower) Lab Data 02/02/23 21:48 02/02/23 21:48 Labs: Lab Results 02/02/23 Range/Units 21:48 WBC 15.2 H (4.5-11.0) X10^3/uL RBC 4.47 (4.0-5.2) X10^6/uL Hgb 13.3 (12.0-16.0) g/dL Hct 39.4 (36-46) % MCV 88.1 (80-100) fL MCH 29.7 (26-34) PG MCHC 33.7 (30-36) % RDW 13.6 (11.6-14.8) % Plt Count 348 (150-400) X10^3/uL Neut % (Auto) 77.4 H (50-75) % Lymph % (Auto) 14.3 L (25-40) % [place] % (Auto) 7.0 (3-14) % Eos % (Auto) 0.6 L (2-4) % Baso % (Auto) 0.7 (0-2) % Neut # (Auto) 44049 H (4525-0840) /uL Lymph # (Auto) 2200 (1707-7456) /uL [place] # (Auto) 1100 H (0-900) /uL Eos # (Auto) 100 (0-450) /uL Baso # (Auto) 100 (0-100) /uL PT 14.3 H (9.4-12.5) SECONDS INR 1.2 (0.9-1.3) Sodium 138 (137-145) mmol/L Potassium 2.3 L* (3.4-5.1) mmol/L Chloride 98 (98-107) mmol/L Carbon Dioxide 27 (22-32) mmol/L BUN 28 H (7-17) mg/dL Creatinine 0.75 (0.52-1.04) mg/dL Estimated GFR > 60 (>60) mL/min BUN/Creatinine Ratio 37.3 H (6-22) Glucose 181 H (80-110) mg/dL Calcium 9.7 (8.4-10.2) mg/dL Total Bilirubin 0.9 (0.2-1.3) mg/dL AST 28 (14-36) IU/L ALT 35 H (<35) IU/L Alkaline Phosphatase 94 (38-126) U/L Total Protein 6.6 (6.3-8.2) g/dL Albumin 3.6 (3.5-5.0) g/dL Globulin 3.0 (1.7-4.1) g/dL Albumin/Globulin Ratio 1.2 (1.0-2.8) Lipase 45 (23-300) U/L MDM Narrative Medical decision making narrative: CC: Hip fracture Complicating co-morbidities: Thalamic stroke December of 2022 Data collected from: patient, Social determinants of health that may influence the patients condition: Recent stroke Medical records reviewed: Discharge summary after thalamic stroke is reviewed. Notes from would be orthopedic care, Dr Diaz in follow-up for her would be January 24 visit where she was discharged with a diagnosis of fracture to the left greater trochanter. She is having persistent pain and inability to walk was re-evaluated today with x-rays done in the office demonstrating a now completely displaced basilar neck fracture with intertrochanteric fracture. In reading through his notes he did try to have this lady directly admitted to would be for surgical intervention however admission was declined by the lapel padder as well as the hospitalist. In consultation with the patient's son, the orthopedic surgeon recommended that he transport her to an alternate facility for operative treatment of her displaced basilar neck/intertrochanteric fracture Differential considered: Hip fracture, stroke extension, infection Exam documented above, pertinent findings include: Patient does have left-sided weakness and facial droop with mild dysarthria but is alert and appropriate. She is noting right hip pain and is most comfortable with her hip Flexed and slightly internally rotated. Lab Test results independently reviewed as above. Pertinent findings: CBC shows mild leukocytosis at 15.2 without significant left shift no significant anemia Chemistries show hypokalemia at 2.3 remainder of labs are reassuring Catheter obtained UA shows moderate bacteria mucus, nitrates but no leukocyte esterase. Patient is not complaining of any dysuria. At this point will opt to not treat this as a UTI, the sample has been cultured Imaging studies independently reviewed: Films reviewed report is not available, she has a displaced basilar neck fracture with an intertrochanteric component. There is no obvious pelvic fracture involved Consultations: Dr. Bucio orthopedic surgeon. Patient will be admitted to the medicine service in light of her recent stroke, Plavix and hypokalemia and anticipated need for continued nursing home facility rehab on discharge. Dr. Bucio will consult. We will keep her NPO after midnight but surgery may not happen until the , he will re-evaluate in the morning. Requested that Plavix be held Dr Reyes, tele admitting hospitalist accepts admission Treatments: IV potassium, oral potassium, parenteral Dilaudid Discussion: 87-year-old woman who was admitted to [facility] on January 23, had a fall on the was evaluated it would be the [facility] and had a greater trochanteric fracture that was not deemed to need surgical intervention. And follow-up with orthopedic surgery outpatient clinic today repeat x-rays were done and showed significant change to the fracture morphology and recommendation was to take her to an emergency department with anticipation of hospital admission with surgical intervention. The orthopedic surgeon did attempt to admit her to [facility] and was not able to do so, the patient's son drove her to [facility]. At this point her pain is moderately controlled she is aware of findings recommendations and need for hospitalization. Discharge Plan Departure Patient Disposition: Admitted As Inpatient Clinical Impression: Hypokalemia Closed hip fracture Qualifiers: Encounter type: subsequent encounter Laterality: right Fracture healing: with nonunion Qualified Code(s): S72.001K - Fracture of unspecified part of neck of right femur, subsequent encounter for closed fracture with nonunion
[2023-02-02 22:51] LABS: Appearance Urine UA CLEAR; Bilirubin Urine UA NEGATIVE (NEGATIVE); Color Urine UA YELLOW; Glucose Urine UA NEGATIVE (Negative); Ketones Urine UA NEGATIVE (NEGATIVE); Leukocyte Esterase Urine UA NEGATIVE (NEGATIVE); Nitrite Urine UA POSITIVE (Negative); Occult Blood Urine UA 1+ (Negative); Protein Urine UA TRACE (Negative); Specific Gravity Urine UA >=1.030 (1.000-1.035); Urobilinogen Urine UA 0.2 E.U./dL (0.2)
[2023-02-02 23:00] LABS: Bacteria Urine Moderate (10-30); Culture Indicated Urine Specimen Cultured; Hyaline Casts Urine 0-1/LPF; Mucus Urine 1+ (Negative); RBC Urine 1-5/HPF (0-5/HPF); Squamous Epithelial Cell Urine 0-1 /HPF (0-5/HPF); WBC Urine 1-5/HPF (0-5/HPF); pH Urine UA 5.5 (4.5-8.0)
[2023-02-02] MEDS: HYDROMORPHONE 0.5 MG INJ IV (23:42)
[2023-02-03] VITALS (14 sets, daily range): BP systolic 114–164; BP diastolic 60–87; PULSE 69–103; RESP 14–20; TEMP 36.1–37.6; O2SAT 93–99; BMI 18.3
--- NOTE | 2023-02-03 | DI.RAD.S_ITS ---
PROCEDURE: XR HIP W PEL IF DONE LT 2V INDICATIONS: INTRAMEDULLARY NAILING TECHNIQUE: AP pelvis and lateral view of the left hip acquired. COMPARISON: [facility], NILSA, XR HIP LT 1V, 02/03/2023, 10:33. FINDINGS: Intra operative images demonstrate yina fixation of the left femur. There is relatively good anatomic alignment. Hardware is intact. IMPRESSION: Intraoperative left femoral fixation. Dictated by: Adrianne Callahan M.D. on 02/03/2023 at 21:47 Approved by: Adrianne Callahan M.D. on 02/03/2023 at 21:47
[2023-02-03 00:13] LABS: Adenovirus F 40/41 Not Detected (Not Detect); Astrovirus Not Detected (Not Detect); Campylobacter Not Detected (Not Detect); Clostridium difficile toxin AB Not Detected (Not Detect); Cryptosporidium Not Detected (Not Detect); Cyclospora cayetanensis Not Detected (Not Detect); Entamoeba histolytica Not Detected (Not Detect); Enteroaggregative E.coli Not Detected (Not Detect); Enteropathogenic E.coli Not Detected (Not Detect); Enterotoxigenic E.coli It/st Not Detected (Not Detect); Giardia lamblia Not Detected (Not Detect); Norovirus GI/GII Not Detected (Not Detect); Plesiomonsa shigelloides Not Detected (Not Detect); Rotavirus A Not Detected (Not Detect); Salmonella Not Detected (Not Detect); Sapovirus Not Detected (Not Detect); Shiga-like toxin-prod E.coli Not Detected (Not Detect); Shigella/Enteroinvasive E.coli Not Detected (Not Detect); Vibrio Not Detected (Not Detect); Vibrio cholerae Not Detected (Not Detect); Yersinia enterocolitica Not Detected (Not Detect)
[2023-02-03] MEDS: POTASSIUM CHLORIDE 20 MEQ TAB 40 MEQ PO ×2 (00:33→09:44)
[2023-02-03] MEDS: SODIUM CHLORIDE 0.9% 1,000 ML 100 ML IV (00:36)
[2023-02-03] MEDS: POTASSIUM CHLORIDE IN WATER 10 MEQ/100 ML PIGGYBACK 100 MEQ IV ×6 (00:36→06:55)
--- NOTE | 2023-02-03 00:43 | ED.LOWEXIN ---
HPI - Extremity Injury (Lower) General Chief Complaint: Extremity Injury, Lower Stated Complaint: LT INTERTROCHANERIC FEMUR FRACTURE/DISPLACED Time Seen by Provider: 02/02/23 22:44 Source: patient and family Mode of arrival: Wheelchair History of Present Illness HPI Narrative: 87 y/o who was hospitalized a month ago with acute ischemic Rt MCA CVA and resultant Lt hemiparesis and was discharged to SNF to continue therapies. She sustained a fall 10 days ago, was seen by orthopedist who recommended conservative management of Lt greater trochanter fracture. In the past few days her mobility got worse and she developed left hip pain. Additional images / ortho followup showing displaced intertrochanteric fracture. In addition, she was on Keflex for suspected UTI and presented with leukocytosis. ED attending found no evidence of prior UTI on UA, not septic, abx did not continue. 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 On admission unable to provide history due to sleepiness and altered mental status. Related Data Home Medications Medication Instructions Recorded Confirmed escitalopram oxalate 10 mg tablet 15 mg PO DAILY Depression 12/30/22 02/03/23 acetaminophen 325 mg tablet 650 mg PO Q8H PRN Pain, Mild 02/03/23 02/03/23 (Tylenol) aspirin 81 mg tablet,delayed 81 mg PO [facility] 02/03/23 02/03/23 release (Adult Low Dose Aspirin) atorvastatin 40 mg tablet 40 mg PO BEDTIME Hyperlipidemia 02/03/23 02/03/23 baclofen 5 mg PO Q8H PRN Muscle Spasms 02/03/23 02/03/23 bisacodyl 10 mg rectal suppository 10 mg [place] DAILY PRN Constipation 02/03/23 02/03/23 (Dulcolax (bisacodyl)) bupropion HCl 75 mg tablet 150 mg PO BID 02/03/23 02/03/23 clopidogrel 75 mg tablet 75 mg PO DAILY VTE prophylaxis 02/03/23 02/03/23 donepezil 5 mg tablet 5 mg PO DAILY Dementia 02/03/23 02/03/23 loperamide 2 mg tablet 2 mg PO QID PRN Diarrhea 02/03/23 02/03/23 melatonin 3 mg tablet 6 mg PO BEDTIME Insomnia 02/03/23 02/03/23 mineral oil 1 ea [place] DAILY PRN Constipation 02/03/23 02/03/23 ondansetron 4 mg disintegrating 4 mg translingual Q8H PRN 02/03/23 02/03/23 tablet Nausea/vomiting oxycodone 5 mg tablet 5 mg PO Q4H PRN Pain management 02/03/23 02/03/23 polyethylene glycol 3350 17 gram 17 g PO DAILY PRN Constipation 02/03/23 02/03/23 oral powder packet (Miralax) sennosides 8.6 mg tablet (senna) 17.2 mg PO DAILY PRN Constipation 02/03/23 02/03/23 Previous Rx's Medication Instructions Recorded budesonide 3 mg See Rx Instructions .Route 11/06/22 capsule,delayed,extended release .COMPLEX #90 caps Allergies Allergy/AdvReac Type Severity Reaction Status Date / Time No Known Drug Allergies Allergy Verified 12/29/22 10:38 Review of Systems Review of Systems ROS Unobtainable: Unobtainable due to mental status/LOC Patient History Medical History (Updated 02/03/23 @ 05:33 by Arnav Reyes MD) Depression Cognitive deficits 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 (BMI) of 19.9 or less in adult director long term care (current) use of 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/antiplatelets Hyperlipemia Other lack of coordination Age-related osteoporosis without current pathological fracture Polyosteoarthritis, unspecified Muscle weakness Difficulty in walking, not elsewhere classified Insomnia Unspecified dementia, unspecified severity, without behavioral disturbance, psychotic disturbance, mood disturbance, and anxiety Unspecified protein-calorie malnutrition Dysphagia, oropharyngeal phase Dysarthria following cerebral infarction Memory deficit following cerebral infarction Dysphagia following cerebral infarction Hemiplegia and hemiparesis following cerebral infarction affecting left non-dominant side Osteoarthritis Seasonal allergies Depression (~1999) Headache Osteoporosis Osteopenia Mumps Measles Chicken pox Recurrent sinusitis Fecal incontinence (~1999) Collagenous colitis (~2003) Breast cancer (~2001) Surgical History Presence of artificial knee joint, bilateral Social History household members: significant other Smoking Status: Never smoker second hand exposure: No alcohol intake: current substance use type: does not use Smoking Status: Never smoker alcohol intake frequency: 3 or more drinks per day Substance Use Type: does not use Exam Initial Vital Signs Initial Vital Signs: Vital Signs Temperature 98.7 F 02/02/23 18:32 Pulse Rate 91 H 02/02/23 18:32 Respiratory Rate 16 02/02/23 18:32 Blood Pressure 116/62 02/02/23 18:32 Pulse Oximetry 94 02/02/23 18:32 Oxygen Delivery Method Room Air 02/02/23 18:32 Const Other: Laying in bed, appears sleepy, in no distress Eyes Other: eomi Neck Other: supple Resp Other: CTA Cardio Other: RRR GI Other: abdomen not distended or tender Skin Other: w/o rashes Neuro Other: Lt hemiparesis, arm more affected then leg Slurred speech Cognitive deficits Extrem Other: LLE internally rotated and shortened Course Orders Ordered: ED Orders 02/02/23 21:48 Complete Blood Count AUTO DIFF Stat Comprehensive Metabolic Panel Stat Lipase Stat Prothrombin Time INR Stat Type and Screen Stat 02/02/23 22:25 Urinalysis and Microscopic Stat Urine Culture Stat 02/02/23 22:42 GI Panel (Film Array) Stat 02/03/23 00:16 Consult to Orthopedic Surgery Stat Acetaminophen (Acetaminophen 325 Mg Tablet) 650 mg PO Q6H PRN PRN Reason: Fever/Mild Pain (1-3) Last Admin: 02/03/23 04:08 Dose: 650 mg Documented By: TONNY Aspirin (Aspirin Ec 81 Mg Tablet) 81 mg PO DAILY NORBERTO Atorvastatin Calcium (Atorvastatin 20 Mg Tablet) 40 mg PO BEDTIME NORBERTO Baclofen (Baclofen 10 Mg Tablet) 5 mg PO Q8H PRN PRN Reason: MUSCLE SPASM Budesonide (Budesonide 3 Mg Cap) 0 mg PO .COMPLEX NORBERTO Bupropion HCl (Bupropion 75 Mg Tablet) 150 mg PO BID NORBERTO Escitalopram Oxalate (Escitalopram 10 Mg Tablet) 15 mg PO BEDTIME NOBRERTO Hydromorphone HCl (Hydromorphone 0.5 Mg Inj) 0.5 mg IV Q15MIN PRN PRN Reason: Pain, Last Admin: 02/02/23 23:42 Dose: 0.5 mg Documented By: MOSES POTASSIUM CHLORIDE IN WATER (Potassium Cl 10 Meq/100 Ml Berta) 10 meq in 100 mls @ 100 mls/hr IV Q1H NORBERTO Stop: 02/03/23 06:14 Last Admin: 02/03/23 04:34 Dose: 100 mls/hr Documented By: Infusion: 02/03/23 04:30 Dose: Infused Documented By: Admin: 02/03/23 03:30 Dose: 100 mls/hr Documented By: Infusion: 02/03/23 03:26 Dose: Infused Documented By: Admin: 02/03/23 02:26 Dose: 100 mls/hr Documented By: Infusion: 02/03/23 01:46 Dose: Infused Documented By: Infusion: 02/03/23 01:02 Dose: 100 mls/hr Documented By: Infusion: 02/03/23 01:02 Dose: 100 mls/hr Documented By: Infusion: 02/03/23 00:53 Dose: 0 mls/hr Documented By: Admin: 02/03/23 00:36 Dose: 100 mls/hr Documented By: AM Sodium Chloride (Normal Saline 0.9%) 1,000 mls @ 100 mls/hr IV CONT NORBERTO Last Infusion: 02/03/23 01:08 Dose: 100 mls/hr Documented By: Infusion: 02/03/23 01:08 Dose: 100 mls/hr Documented By: Infusion: 02/03/23 00:53 Dose: 0 mls/hr Documented By: Admin: 02/03/23 00:36 Dose: 100 mls/hr Documented By: AM Potassium Chloride/Dextrose/Sod Cl (Dextrose 5%-0.45%Ns W/Kcl 20meq) 1,000 mls @ 84 mls/hr IV CONT NORBERTO Multivitamins (Multivitamin 1 Tablet) 1 tab PO DAILY NORBERTO Naloxone HCl (Naloxone 0.4 Mg/Ml Vial) 0.2 mg IV Q2MIN PRN PRN Reason: Opiate Reversal Ondansetron HCl (Ondansetron 4 Mg Odt) 4 mg PO NOW PRN PRN Reason: Nausea And Vomiting Ondansetron HCl (Ondansetron 4 Mg/2 Ml Inj) 4 mg IV NOW PRN PRN Reason: Nausea And Vomiting Ondansetron HCl (Ondansetron 4 Mg/2 Ml Inj) 4 mg IV Q4HR PRN PRN Reason: nausea Oxycodone HCl (Oxycodone Ir 5 Mg Tablet) 5 mg PO Q3H PRN PRN Reason: Pain, Moderate (4-6) Last Admin: 02/03/23 04:08 Dose: 5 mg Documented By: Oxycodone HCl (Oxycodone Ir 10 Mg Tablet) 10 mg PO Q3H PRN PRN Reason: Pain, Severe (7-10) Discontinued Medications Morphine Sulfate (Morphine 4 Mg/Ml Inj) 4 mg IV NOW ONE Stop: 02/02/23 21:26 Last Admin: 02/02/23 21:45 Dose: 4 mg Documented By: AM Non-Formulary Medication (Multivitamin [Multiple Vitamins]) 1 tab PO QDAY [facility] Non-Formulary Medication (Baclofen) 5 mg PO Q8H PRN PRN Reason: Muscle Spasms Potassium Chloride (Potassium Chloride 20 Meq Tab) 40 meq PO NOW ONE Stop: 02/03/23 00:15 Last Admin: 02/03/23 00:33 Dose: 40 meq Documented By: AM Vital Signs Vital signs: Vital Signs - 8 hr 02/02/23 22:19 02/02/23 22:20 02/02/23 22:21 Pulse Rate 82 Pulse Rate [Left Dorsalis Pedis] 76 Blood Pressure 131/67 Pulse Oximetry 96 Oxygen Delivery Method Room Air 02/02/23 22:21 02/02/23 22:30 02/02/23 22:30 Pulse Rate 85 80 Pulse Rate [Left Dorsalis Pedis] Blood Pressure 135/62 Pulse Oximetry 96 95 Oxygen Delivery Method Room Air Room Air 02/02/23 23:00 02/02/23 23:00 02/02/23 23:30 Pulse Rate 76 80 Pulse Rate [Left Dorsalis Pedis] Blood Pressure 133/60 Pulse Oximetry 93 96 Oxygen Delivery Method Room Air Room Air 02/02/23 23:30 02/03/23 00:00 02/03/23 00:00 Pulse Rate 76 Pulse Rate [Left Dorsalis Pedis] Blood Pressure 141/65 H 135/61 Pulse Oximetry 94 Oxygen Delivery Method MDM - Extremity Injury (Lower) Lab Data 02/02/23 21:48 02/02/23 21:48 Labs: Lab Results 02/02/23 02/02/23 02/02/23 Range/Units 21:48 22:25 22:42 WBC 15.2 H (4.5-11.0) X10^3/uL RBC 4.47 (4.0-5.2) X10^6/uL Hgb 13.3 (12.0-16.0) g/dL Hct 39.4 (36-46) % MCV 88.1 (80-100) fL MCH 29.7 (26-34) PG MCHC 33.7 (30-36) % RDW 13.6 (11.6-14.8) % Plt Count 348 (150-400) X10^3/uL Neut % (Auto) 77.4 H (50-75) % Lymph % (Auto) 14.3 L (25-40) % [place] % (Auto) 7.0 (3-14) % Eos % (Auto) 0.6 L (2-4) % Baso % (Auto) 0.7 (0-2) % Neut # (Auto) 39864 H (9051-6443) /uL Lymph # (Auto) 2200 (5552-2151) /uL [place] # (Auto) 1100 H (0-900) /uL Eos # (Auto) 100 (0-450) /uL Baso # (Auto) 100 (0-100) /uL PT 14.3 H (9.4-12.5) SECONDS INR 1.2 (0.9-1.3) Sodium 138 (137-145) mmol/L Potassium 2.3 L* (3.4-5.1) mmol/L Chloride 98 (98-107) mmol/L Carbon Dioxide 27 (22-32) mmol/L BUN 28 H (7-17) mg/dL Creatinine 0.75 (0.52-1.04) mg/dL Estimated GFR > 60 (>60) mL/min BUN/Creatinine Ratio 37.3 H (6-22) Glucose 181 H (80-110) mg/dL Calcium 9.7 (8.4-10.2) mg/dL Total Bilirubin 0.9 (0.2-1.3) mg/dL AST 28 (14-36) IU/L ALT 35 H (<35) IU/L Alkaline Phosphatase 94 (38-126) U/L Total Protein 6.6 (6.3-8.2) g/dL Albumin 3.6 (3.5-5.0) g/dL Globulin 3.0 (1.7-4.1) g/dL Albumin/Globulin Ratio 1.2 (1.0-2.8) Lipase 45 (23-300) U/L Urine Color Yellow Urine Appearance Clear Urine pH 5.5 (4.5-8.0) Ur Specific [place] >=1.030 H (1.000-1.035) Urine Protein Trace H (Negative) Urine Glucose (UA) Negative (Negative) g/dL Urine Ketones Negative (NEGATIVE) Urine Occult Blood 1+ H (Negative) Urine Nitrate Positive H (Negative) Urine Bilirubin Negative (NEGATIVE) Urine Urobilinogen 0.2 (0.2) E.U./dL Ur Leukocyte Esterase Negative (NEGATIVE) Urine RBC 1-5/hpf (0-5/HPF) Urine WBC 1-5/hpf (0-5/HPF) Ur Squamous Epith Cells 0-1 /hpf (0-5/HPF) Urine Bacteria Moderate (10-30) H (None) Hyaline Casts 0-1/lpf (None) Urine Mucus 1+ H (Negative) Ur Culture Indicated? Specimen cultured Stl C. cayetanensis PCR Not detected (Not Detect) Stool Rotavirus (PCR) Not detected (Not Detect) Stool Adenovirus (PCR) Not detected (Not Detect) Stool Astrovirus (PCR) Not detected (Not Detect) Stool Cryptosporidium PCR Not detected (Not Detect) Stl E.coli Shiga Tox PCR Not detected (Not Detect) St Sh/Enteroin Ecoli PCR Not detected (Not Detect) Stl Enterotoxigenic E PCR Not detected (Not Detect) Stool EPEC (PCR) Not detected (Not Detect) Stl E. histolytica PCR Not detected (Not Detect) Stool Giardia Lamblia PCR Not detected (Not Detect) Stool Sapovirus (PCR) Not detected (Not Detect) Stl P. shigelloides PCR Not detected (Not Detect) St Y.enterocolitica PCR Not detected (Not Detect) Stool Vibrio (PCR) Not detected (Not Detect) Stl Vibrio cholerae PCR Not detected (Not Detect) Stl Enteroaggr Ecoli PCR Not detected (Not Detect) Stl Norovirus GI/GII PCR Not detected (Not Detect) Campylobacter (PCR) Not detected (Not Detect) C. difficile Tox (PCR) Not detected (Not Detect) Salmonella (PCR) Not detected (Not Detect) Blood Type A Positive Antibody Screen Negative Discharge Plan Departure Patient Disposition: Admitted As Inpatient Clinical Impression: Hypokalemia Closed hip fracture Qualifiers: Encounter type: subsequent encounter Laterality: right Fracture healing: with nonunion Qualified Code(s): S72.001K - Fracture of unspecified part of neck of right femur, subsequent encounter for closed fracture with nonunion
[2023-02-03] MEDS: OXYCODONE IR 5 MG TABLET PO ×2 (04:08→12:46)
[2023-02-03] MEDS: ACETAMINOPHEN 325 MG TABLET 650 MG PO (04:08)
--- NOTE | 2023-02-03 04:26 | PC.WOUNDPHOT ---
L. hip bruise, L outer knee bruise, L Forearm bruise, Right arm bruise.
--- NOTE | 2023-02-03 05:18 | PM.HP.1 ---
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 She sustained a fall 10 days ago, was seen by orthopedist who recommended conservative management of Lt greater trochanter fracture. In the past few days her mobility got worse and she developed left hip pain. Additional images / ortho followup showing displaced intertrochanteric fracture. In addition, she was on Keflex for suspected UTI and presented with leukocytosis. ED attending found no evidence of prior UTI on UA, not septic, abx did not continue. 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 On admission unable to provide history due to sleepiness and altered mental status. [facility], [facility]ER [facility] Medical History (Updated 02/03/23 @ 05:33 by Arnav Reyes MD) Depression Cognitive deficits 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 (BMI) of 19.9 or less in adult butterm[place] (current) use of 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/antiplatelets Hyperlipemia Other lack of coordination Age-related osteoporosis without current pathological fracture Polyosteoarthritis, unspecified Muscle weakness Difficulty in walking, not elsewhere classified Insomnia Unspecified dementia, unspecified severity, without behavioral disturbance, psychotic disturbance, mood disturbance, and anxiety Unspecified protein-calorie malnutrition Dysphagia, oropharyngeal phase Dysarthria following cerebral infarction Memory deficit following cerebral infarction Dysphagia following cerebral infarction Hemiplegia and hemiparesis following cerebral infarction affecting left non-dominant side Osteoarthritis Seasonal allergies Depression (~1999) Headache Osteoporosis Osteopenia Mumps Measles Chicken pox Recurrent sinusitis Fecal incontinence (~1999) Collagenous colitis (~2003) Breast cancer (~2001) Surgical History Presence of artificial knee joint, bilateral Social History household members: significant other Smoking Status: Never smoker second hand exposure: No alcohol intake: current substance use type: does not use Meds Home Medications and Allergies Home Medications Medication Instructions Recorded Confirmed Type budesonide 3 mg See Rx Instructions .Route 11/06/22 02/03/23 Rx capsule,delayed,extended release .COMPLEX #90 caps escitalopram oxalate 10 mg tablet 15 mg PO DAILY Depression 12/30/22 02/03/23 History acetaminophen 325 mg tablet 650 mg PO Q8H PRN Pain, Mild 02/03/23 02/03/23 History (Tylenol) aspirin 81 mg tablet,delayed 81 mg PO [facility] 02/03/23 02/03/23 History release (Adult Low Dose Aspirin) atorvastatin 40 mg tablet 40 mg PO BEDTIME Hyperlipidemia 02/03/23 02/03/23 History baclofen 5 mg PO Q8H PRN Muscle Spasms 02/03/23 02/03/23 History bisacodyl 10 mg rectal suppository 10 mg [place] DAILY PRN Constipation 02/03/23 02/03/23 History (Dulcolax (bisacodyl)) bupropion HCl 75 mg tablet 150 mg PO BID 02/03/23 02/03/23 History clopidogrel 75 mg tablet 75 mg PO DAILY VTE prophylaxis 02/03/23 02/03/23 History donepezil 5 mg tablet 5 mg PO DAILY Dementia 02/03/23 02/03/23 History loperamide 2 mg tablet 2 mg PO QID PRN Diarrhea 02/03/23 02/03/23 History melatonin 3 mg tablet 6 mg PO BEDTIME Insomnia 02/03/23 02/03/23 History mineral oil 1 ea [place] DAILY PRN Constipation 02/03/23 02/03/23 History ondansetron 4 mg disintegrating 4 mg translingual Q8H PRN 02/03/23 02/03/23 History tablet Nausea/vomiting oxycodone 5 mg tablet 5 mg PO Q4H PRN Pain management 02/03/23 02/03/23 History polyethylene glycol 3350 17 gram 17 g PO DAILY PRN Constipation 02/03/23 02/03/23 History oral powder packet (Miralax) sennosides 8.6 mg tablet (senna) 17.2 mg PO DAILY PRN Constipation 02/03/23 02/03/23 History Allergies Allergy/AdvReac Type Severity Reaction Status Date / Time No Known Drug Allergies Allergy Verified 12/29/22 10:38 Review of Systems Review of Systems Narrative: Unobtainable to to cognitive deficits Exam Vital Signs (past 8 hours): - 02/02/23 22:19 02/02/23 22:20 02/02/23 22:21 Temperature Pulse Rate 82 Pulse Rate [Left Dorsalis Pedis] 76 Respiratory Rate Blood Pressure 131/67 Pulse Oximetry 96 Oxygen Delivery Method Room Air Oxygen Flow Rate 02/02/23 22:21 02/02/23 22:30 02/02/23 22:30 Temperature Pulse Rate 85 80 Pulse Rate [Left Dorsalis Pedis] Respiratory Rate Blood Pressure 135/62 Pulse Oximetry 96 95 Oxygen Delivery Method Room Air Room Air Oxygen Flow Rate 02/02/23 23:00 02/02/23 23:00 02/02/23 23:30 Temperature Pulse Rate 76 80 Pulse Rate [Left Dorsalis Pedis] Respiratory Rate Blood Pressure 133/60 Pulse Oximetry 93 96 Oxygen Delivery Method Room Air Room Air Oxygen Flow Rate 02/02/23 23:30 02/03/23 00:00 02/03/23 00:00 Temperature Pulse Rate 76 Pulse Rate [Left Dorsalis Pedis] Respiratory Rate Blood Pressure 141/65 H 135/61 Pulse Oximetry 94 Oxygen Delivery Method Oxygen Flow Rate 02/03/23 00:30 02/03/23 00:30 02/03/23 01:00 Temperature 97.9 F Pulse Rate 75 80 Pulse Rate [Left Dorsalis Pedis] Respiratory Rate 14 18 Blood Pressure 134/60 147/87 H Pulse Oximetry 93 96 Oxygen Delivery Method Room Air Oxygen Flow Rate 0 02/03/23 01:31 02/03/23 05:08 Temperature 97.9 F Pulse Rate 89 Pulse Rate [Left Dorsalis Pedis] Respiratory Rate 18 Blood Pressure 164/85 H Pulse Oximetry 97 Oxygen Delivery Method Room Air Oxygen Flow Rate 0 Oxygen Delivery Method Room Air Oxygen Flow Rate 0 HENMT Other: normocephalic Eyes Other: reactive pupils Neck Other: supple Cardio Other: RRR GI Other: not distended Skin Other: w/o rashes Neuro Other: Cognitive deficits, dysarthria, Lt hemiparesis (arm > leg) Extrem Other: LLE internally rotated and shortened Objective Labs 02/02/23 21:48 02/02/23 21:48 Labs: Laboratory Results - last 24 hr 02/02/23 02/02/23 02/02/23 21:48 22:25 22:42 WBC 15.2 H RBC 4.47 Hgb 13.3 Hct 39.4 MCV 88.1 MCH 29.7 MCHC 33.7 RDW 13.6 Plt Count 348 Neut % (Auto) 77.4 H Lymph % (Auto) 14.3 L [place] % (Auto) 7.0 Eos % (Auto) 0.6 L Baso % (Auto) 0.7 Neut # (Auto) 07191 H Lymph # (Auto) 2200 [place] # (Auto) 1100 H Eos # (Auto) 100 Baso # (Auto) 100 PT 14.3 H INR 1.2 Sodium 138 Potassium 2.3 L* Chloride 98 Carbon Dioxide 27 BUN 28 H Creatinine 0.75 Estimated GFR > 60 BUN/Creatinine Ratio 37.3 H Glucose 181 H Calcium 9.7 Total Bilirubin 0.9 AST 28 ALT 35 H Alkaline Phosphatase 94 Total Protein 6.6 Albumin 3.6 Globulin 3.0 Albumin/Globulin Ratio 1.2 Lipase 45 Urine Color Yellow Urine Appearance Clear Urine pH 5.5 Ur Specific [place] >=1.030 H Urine Protein Trace H Urine Glucose (UA) Negative Urine Ketones Negative Urine Occult Blood 1+ H Urine Nitrate Positive H Urine Bilirubin Negative Urine Urobilinogen 0.2 Ur Leukocyte Esterase Negative Urine RBC 1-5/hpf Urine WBC 1-5/hpf Ur Squamous Epith Cells 0-1 /hpf Urine Bacteria Moderate (10-30) H Hyaline Casts 0-1/lpf Urine Mucus 1+ H Ur Culture Indicated? Specimen cultured Stl C. cayetanensis PCR Not detected Stool Rotavirus (PCR) Not detected Stool Adenovirus (PCR) Not detected Stool Astrovirus (PCR) Not detected Stool Cryptosporidium PCR Not detected Stl E.coli Shiga Tox PCR Not detected St Sh/Enteroin Ecoli PCR Not detected Stl Enterotoxigenic E PCR Not detected Stool EPEC (PCR) Not detected Stl E. histolytica PCR Not detected Stool Giardia Lamblia PCR Not detected Stool Sapovirus (PCR) Not detected Stl P. shigelloides PCR Not detected St Y.enterocolitica PCR Not detected Stool Vibrio (PCR) Not detected Stl Vibrio cholerae PCR Not detected Stl Enteroaggr Ecoli PCR Not detected Stl Norovirus GI/GII PCR Not detected Campylobacter (PCR) Not detected C. difficile Tox (PCR) Not detected Salmonella (PCR) Not detected Blood Type A Positive Antibody Screen Negative Assessment & Plan Assessment and plan (1) Intertrochanteric fracture of left femur: Status: Acute Plan: NPO except for meds - discussed with ortopedic Sx - OR once electrolytes balanced again - NWB LLE, pain management (2) Hypokalemia: Status: Acute Plan: Severe, GI loses - chronic lose stool from collagenous collitis. Suplemented iv and PO - monitored lytes - not clear if colitis getting worse or she just did not have enough of KCl - continuing budesonide (3) Acute ischemic right MCA stroke: Status: Acute Plan: turning into subacute soon - statin, ASA and Plavix. ASA and Plavix on hold in anticipation of surgery (4) Acute left hemiparesis: Status: Acute Plan: Arm affected more then the leg. PT, OT (5) Cognitive deficits: Status: Acute Plan: on Donepezil at home. Possibly vascular, apparently worsened after the stroke (6) Impaired mobility and ADLs: Status: Acute Plan: PT, OT, supportive care (7) Depression: Status: Acute Plan: Wellbutrin 150 mg bid, Lexapro 15 mg hs Quality VTE Deep Vein Thrombosis/Pulmonary Embolism Present on Admission: No
--- NOTE | 2023-02-03 05:22 | PC.ADMIT ---
[email or web address] [facility] Admission Note: Patient admitted to AC unit at 01:00 from ED, transferred via stretcher and slideboard transfer into bed. Alert and oriented self, birthday, and place. Oriented to room and call light, bed low and locked and bed alarm on. The patient,Concepcion Berumen,87 y/o, was given written information regarding hospital policies, unit procedures and contact persons. Patient's smoking status: Never smoker. Vital Signs - 8 hr 02/02/23 22:19 02/02/23 22:20 02/02/23 22:21 Temperature Pulse Rate 82 Pulse Rate [Left Dorsalis Pedis] 76 Respiratory Rate Blood Pressure 131/67 Pulse Oximetry 96 Oxygen Delivery Method Room Air Oxygen Flow Rate 02/02/23 22:21 02/02/23 22:30 02/02/23 22:30 Temperature Pulse Rate 85 80 Pulse Rate [Left Dorsalis Pedis] Respiratory Rate Blood Pressure 135/62 Pulse Oximetry 96 95 Oxygen Delivery Method Room Air Room Air Oxygen Flow Rate 02/02/23 23:00 02/02/23 23:00 02/02/23 23:30 Temperature Pulse Rate 76 80 Pulse Rate [Left Dorsalis Pedis] Respiratory Rate Blood Pressure 133/60 Pulse Oximetry 93 96 Oxygen Delivery Method Room Air Room Air Oxygen Flow Rate 02/02/23 23:30 02/03/23 00:00 02/03/23 00:00 Temperature Pulse Rate 76 Pulse Rate [Left Dorsalis Pedis] Respiratory Rate Blood Pressure 141/65 H 135/61 Pulse Oximetry 94 Oxygen Delivery Method Oxygen Flow Rate 02/03/23 00:30 02/03/23 00:30 02/03/23 01:00 Temperature 97.9 F Pulse Rate 75 80 Pulse Rate [Left Dorsalis Pedis] Respiratory Rate 14 18 Blood Pressure 134/60 147/87 H Pulse Oximetry 93 96 Oxygen Delivery Method Room Air Oxygen Flow Rate 0 02/03/23 01:31 02/03/23 05:08 Temperature 97.9 F Pulse Rate 89 Pulse Rate [Left Dorsalis Pedis] Respiratory Rate 18 Blood Pressure 164/85 H Pulse Oximetry 97 Oxygen Delivery Method Room Air Oxygen Flow Rate 0
[2023-02-03] MEDS: DEXTROSE 5%-0.45NS W/KCL 20MEQ 1,000 ML 84 MEQ IV (05:39)
--- NOTE | 2023-02-03 07:54 | DI.RAD.S_ITS ---
PROCEDURE: XR HIP LT 1V INDICATIONS: Differentiation of fracture pattern TECHNIQUE: 1 views of the hip were acquired. COMPARISON: [facility], CT, CT PEL WO CON, 02/03/2023, 7:58. [facility], RG, XR HIP 2V LEFT, 02/02/2023, 13:18. FINDINGS: Bones: Acute comminuted intertrochanteric fracture of proximal femur is noted with superior migration of femoral shaft in relation to femoral neck. Lateral displacement at greater trochanteric fracture site is also seen. No suspicious bony lesions. The visualized pelvic ring appears intact. Soft tissues: No suspicious soft tissue calcifications or masses. IMPRESSION: Acute comminuted and displaced intertrochanteric fracture of left proximal femur as above. Dictated by: Eddie Singh M.D. on 02/03/2023 at 11:03 Approved by: Eddie Singh M.D. on 02/03/2023 at 11:05
--- NOTE | 2023-02-03 08:11 | DI.CT.S_ITS ---
PROCEDURE: CT PEL WO CON INDICATIONS: evaluate hip fracture TECHNIQUE: Noncontrast 3 mm axial sections acquired through the bony pelvis, with coronal and sagittal reformatting. COMPARISON: [facility], MESSI, CT ABDOMEN/PELVIS WITH CONTRAST, 01/24/2023, 6:42. [facility], [facility], XR HIP 2V LEFT, 02/02/2023, 13:18. FINDINGS: Image quality: Excellent. Bones: As seen on previous hip radiograph, again noted is a comminuted fracture involving intertrochanteric region of left proximal femur with fracture lines extending to both greater and lesser trochanters. There is superior migration of proximal humeral shaft in relation to humeral neck. Slight superior and lateral displacement of the fractured greater trochanteric fragments are noted. Slight inferior and posterior displacement of lesser trochanteric fragments are also noted. Osteoarthritic changes are noted in bilateral hip joints. No evidence of avascular necrosis of femoral head. Old fracture involving left inferior pubic ramus is again seen. No other fracture or dislocation. Degenerative disc disease in visualized lower lumbar spine is noted. Soft tissues: There is significant soft tissue swelling and edema surrounding greater trochanteric fracture site. No abnormal calcifications or calcified intra-articular loose bodies. No pelvic free fluid or free air. No abnormal bowel wall thickening. Rocha catheter is seen in the a decompressed urinary bladder. IMPRESSION: 1. Acute comminuted and displaced intertrochanteric fracture of left proximal femur with superior migration of humeral shaft in relation to humeral head and neck as described above. Large surrounding soft tissue edema and swelling with suggestion of adjacent soft tissue hematoma. No abnormal soft tissue calcifications. 2. Old left inferior pubic ramus fracture. Osteoarthritic changes throughout bony pelvis. No evidence of avascular necrosis of femoral head. Dictated by: Eddie Singh M.D. on 02/03/2023 at 8:24 Approved by: Eddie Singh M.D. on 02/03/2023 at 8:32
[2023-02-03 09:00] LABS: Add Manual Diff / Slide Review NO; Basophils Absolute Auto 0 /uL (0-100); Basophils Percent Auto 0.3 % (0-2); Eosinophils Absolute Auto 100 /uL (0-450); Eosinophils Percent Auto 1.2 % (2-4); Hematocrit 35.6 % (36-46); Hemoglobin 12.1 g/dL (12.0-16.0); Lymphocytes Absolute Auto 2300 /uL (1100-4500); Lymphocytes Percent Auto 18.9 % (25-40); Mean Corpuscular Hemoglobin 29.7 PG (26-34); Mean Corpuscular Volume 87.3 fL (80-100); Monocytes Absolute Auto 1200 /uL (0-900); Neutrophils Absolute Auto 8500 /uL (1500-7000); Neutrophils Percent Auto 69.6 % (50-75); Platelet Count 291 X10^3/uL (150-400); Red Blood Cell Count 4.08 X10^6/uL (4.0-5.2); Red Cell Distribution Width 13.9 % (11.6-14.8); White Blood Cell Count 12.2 X10^3/uL (4.5-11.0)
[2023-02-03 09:02] LABS: BUN Creatinine Ratio 40.3 (6-22); Blood Urea Nitrogen 25 mg/dL (7-17); Calcium 9.1 mg/dL (8.4-10.2); Carbon Dioxide 30 mmol/L (22-32); Chloride 105 mmol/L (98-107); Estimated Glomerular Filt Rate > 60 mL/min (>60); Glucose 105 mg/dL (80-110); HEMOLYSIS < 15 (0-50); Potassium 3.3 mmol/L (3.4-5.1); Sodium 138 mmol/L (137-145)
[2023-02-03 09:03] LABS: Magnesium 1.9 mg/dL (1.6-2.3)
[2023-02-03] MEDS: MULTIVITAMIN 1 TABLET 1 TAB PO (09:44)
[2023-02-03] MEDS: buPROPion 75 MG TABLET 150 MG PO (09:48)
[2023-02-03] MEDS: HYDROMORPHONE 0.5 MG INJ IV ×4 (10:37→23:12)
--- NOTE | 2023-02-03 13:57 | DIET.CONS ---
Dietary Consultation Note Admission Date: 02/03/2023 00:18 Assessment: 87 y/o F with femur fx currently NPO for orthopedic sx. No family at bedside during RD visit. Pt qualifies for chronic severe PCM based on weight loss over 6 months of 12% and low for age BMI of 18.3. RN states pt is confused and not able to participate in consult without family at this time. Since admission she has had persistent low K+. PMH of loose BM due to colitis per notes. Ht: 160.02 cm Wt: 47 kg BMI: 18.3 Last BM: 02/03/23 (02/03/23 07:03) MNA: 6 Gabriele Score: 15 Diet: 02/03/23 00:33 NPO Diet Diet Modifications: NPO Type: NPO except for Meds Labs: RBC 4.08 X10^6/uL (4.0-5.2) 02/03/23 08:14 Hgb 12.1 g/dL (12.0-16.0) 02/03/23 08:14 Hct 35.6 % (36-46) L 02/03/23 08:14 Creatinine 0.62 mg/dL (0.52-1.04) 02/03/23 08:14 Nutrition Diagnosis: Chronic severe protein calorie malnutrition r/t predicted inadequate kcal intake aeb weight hx of 5.4% loss over 1 month, 12% loss over 6 months, and low for age BMI of 18.3. -The patient is at much higher risk for medical and surgical complications because of his malnutrition.? This increases the difficulty and complexity of medical and surgical interventions and increases the chances of poor outcomes such as morbidity and mortality. Interventions: Currently NPO. Recommend high kcal ONS BID after PO cleared. EER: 1800kcal (38kcal/kg per BMI) 85-94g PRO (1.8-2g/kg per malnutrition) Monitoring/Evaluations: NPO status, PO. RD f/u 2-3 days Electronically Signed by: Terese Munguia 02/03/23 13:57 Clinical Dietitian [address] [address]
--- NOTE | 2023-02-03 16:21 | P.PN_ITS ---
Subjective Subjective Interval history: She notes quite significant leg pain and cramping. Exam Vital Signs (past 8 hours): - 02/03/23 09:10 02/03/23 09:48 02/03/23 13:47 Temperature 98.3 F 98.8 F Pulse Rate 72 69 Respiratory Rate 18 16 Blood Pressure 152/84 H 142/63 H Pulse Oximetry 96 96 Oxygen Delivery Method Room Air Oxygen Delivery Method Room Air Oxygen Flow Rate 0 Narrative Exam Narrative: GEN: in pain CV: regular rate and rhythm PULM: clear bilaterally EXT: left leg externally rotated NEURO: dysarthria noted, left sided weakness Objective Labs 02/03/23 08:14 02/03/23 08:14 Labs: Laboratory Results - last 24 hr 02/02/23 02/02/23 02/02/23 21:48 22:25 22:42 WBC 15.2 H RBC 4.47 Hgb 13.3 Hct 39.4 MCV 88.1 MCH 29.7 MCHC 33.7 RDW 13.6 Plt Count 348 Neut % (Auto) 77.4 H Lymph % (Auto) 14.3 L [place] % (Auto) 7.0 Eos % (Auto) 0.6 L Baso % (Auto) 0.7 Neut # (Auto) 74692 H Lymph # (Auto) 2200 [place] # (Auto) 1100 H Eos # (Auto) 100 Baso # (Auto) 100 PT 14.3 H INR 1.2 Sodium 138 Potassium 2.3 L* Chloride 98 Carbon Dioxide 27 BUN 28 H Creatinine 0.75 Estimated GFR > 60 BUN/Creatinine Ratio 37.3 H Glucose 181 H Calcium 9.7 Magnesium Total Bilirubin 0.9 AST 28 ALT 35 H Alkaline Phosphatase 94 Total Protein 6.6 Albumin 3.6 Globulin 3.0 Albumin/Globulin Ratio 1.2 Lipase 45 Urine Color Yellow Urine Appearance Clear Urine pH 5.5 Ur Specific [place] >=1.030 H Urine Protein Trace H Urine Glucose (UA) Negative Urine Ketones Negative Urine Occult Blood 1+ H Urine Nitrate Positive H Urine Bilirubin Negative Urine Urobilinogen 0.2 Ur Leukocyte Esterase Negative Urine RBC 1-5/hpf Urine WBC 1-5/hpf Ur Squamous Epith Cells 0-1 /hpf Urine Bacteria Moderate (10-30) H Hyaline Casts 0-1/lpf Urine Mucus 1+ H Ur Culture Indicated? Specimen cultured Stl C. cayetanensis PCR Not detected Stool Rotavirus (PCR) Not detected Stool Adenovirus (PCR) Not detected Stool Astrovirus (PCR) Not detected Stool Cryptosporidium PCR Not detected Stl E.coli Shiga Tox PCR Not detected St Sh/Enteroin Ecoli PCR Not detected Stl Enterotoxigenic E PCR Not detected Stool EPEC (PCR) Not detected Stl E. histolytica PCR Not detected Stool Giardia Lamblia PCR Not detected Stool Sapovirus (PCR) Not detected Stl P. shigelloides PCR Not detected St Y.enterocolitica PCR Not detected Stool Vibrio (PCR) Not detected Stl Vibrio cholerae PCR Not detected Stl Enteroaggr Ecoli PCR Not detected Stl Norovirus GI/GII PCR Not detected Campylobacter (PCR) Not detected C. difficile Tox (PCR) Not detected Salmonella (PCR) Not detected Blood Type A Positive Antibody Screen Negative 02/03/23 08:14 WBC 12.2 H RBC 4.08 Hgb 12.1 Hct 35.6 L MCV 87.3 MCH 29.7 MCHC 34.0 RDW 13.9 Plt Count 291 Neut % (Auto) 69.6 Lymph % (Auto) 18.9 L [place] % (Auto) 10.0 Eos % (Auto) 1.2 L Baso % (Auto) 0.3 Neut # (Auto) 8500 H Lymph # (Auto) 2300 [place] # (Auto) 1200 H Eos # (Auto) 100 Baso # (Auto) 0 PT INR Sodium 138 Potassium 3.3 L Chloride 105 Carbon Dioxide 30 BUN 25 H Creatinine 0.62 Estimated GFR > 60 BUN/Creatinine Ratio 40.3 H Glucose 105 Calcium 9.1 Magnesium 1.9 Total Bilirubin AST ALT Alkaline Phosphatase Total Protein Albumin Globulin Albumin/Globulin Ratio Lipase Urine Color Urine Appearance Urine pH Ur Specific [place] Urine Protein Urine Glucose (UA) Urine Ketones Urine Occult Blood Urine Nitrate Urine Bilirubin Urine Urobilinogen Ur Leukocyte Esterase Urine RBC Urine WBC Ur Squamous Epith Cells Urine Bacteria Hyaline Casts Urine Mucus Ur Culture Indicated? Stl C. cayetanensis PCR Stool Rotavirus (PCR) Stool Adenovirus (PCR) Stool Astrovirus (PCR) Stool Cryptosporidium PCR Stl E.coli Shiga Tox PCR St Sh/Enteroin Ecoli PCR Stl Enterotoxigenic E PCR Stool EPEC (PCR) Stl E. histolytica PCR Stool Giardia Lamblia PCR Stool Sapovirus (PCR) Stl P. shigelloides PCR St Y.enterocolitica PCR Stool Vibrio (PCR) Stl Vibrio cholerae PCR Stl Enteroaggr Ecoli PCR Stl Norovirus GI/GII PCR Campylobacter (PCR) C. difficile Tox (PCR) Salmonella (PCR) Blood Type Antibody Screen [facility] Medical History (Updated 02/03/23 @ 05:33 by Arnav Reyes MD) Depression Cognitive deficits 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 (BMI) of 19.9 or less in adult jail (current) use of 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/antiplatelets Hyperlipemia Other lack of coordination Age-related osteoporosis without current pathological fracture Polyosteoarthritis, unspecified Muscle weakness Difficulty in walking, not elsewhere classified Insomnia Unspecified dementia, unspecified severity, without behavioral disturbance, psychotic disturbance, mood disturbance, and anxiety Unspecified protein-calorie malnutrition Dysphagia, oropharyngeal phase Dysarthria following cerebral infarction Memory deficit following cerebral infarction Dysphagia following cerebral infarction Hemiplegia and hemiparesis following cerebral infarction affecting left non- dominant side Osteoarthritis Seasonal allergies Depression (~1999) Headache Osteoporosis Osteopenia Mumps Measles Chicken pox Recurrent sinusitis Fecal incontinence (~1999) Collagenous colitis (~2003) Breast cancer (~2001) Surgical History Presence of artificial knee joint, bilateral Social History household members: significant other Smoking Status: Never smoker second hand exposure: No alcohol intake: current substance use type: does not use Assessment & Plan Assessment and plan (1) Intertrochanteric fracture of left femur: Status: Acute Plan: NPO except for meds -plan for OR either today or tomorrow - OR once electrolytes balanced again - NWB LLE, pain management (2) Hypokalemia: Status: Acute Plan: Severe, GI loses - chronic lose stool from collagenous collitis. Suplemented iv and PO - monitored lytes - not clear if colitis getting worse or she just did not have enough of KCl - continuing budesonide (3) Acute ischemic right MCA stroke: Status: Acute Plan: statin, ASA and Plavix. ASA and Plavix on hold in anticipation of surgery (4) Acute left hemiparesis: Status: Acute Plan: Arm affected more then the leg. PT, OT (5) Cognitive deficits: Status: Acute Plan: on Donepezil at home. Possibly vascular, apparently worsened after the stroke (6) Impaired mobility and ADLs: Status: Acute Plan: PT, OT, supportive care (7) Depression: Status: Acute Plan: Wellbutrin 150 mg bid, Lexapro 15 mg hs Quality VTE Deep Vein Thrombosis/Pulmonary Embolism Present on Admission: No
--- NOTE | 2023-02-03 16:34 | CM.DANOTE ---
DCP Assessment note Patient is a 87yo F here recently for stroke in Dec, [place] [facility] due to fall and femur fracture. PCP Buster Rios Payer Medicare and [employer] Patient scheduled for surg today at 1745. SENIOR LANDSCAPE ARCHITECT reviewed EMR. SENIOR LANDSCAPE ARCHITECT spoke with Anastasia at [facility]. [place] [facility] [place] [facility]. Patient son/POA is paying for them to hold a room at [facility] while patient is here. Anastasia reports patient does not need 3 midnights to continue to receive medicare benefit. Able to accept Wednesday. Transportation may be a barrier, limited w[place] van availability due to holiday. SENIOR LANDSCAPE ARCHITECT spoke with son Mark/DPOA on phone. Confirms want patient to return to [facility] for SNF. concerned about transportation. reports willing to transport if safe to do so in PO. SENIOR LANDSCAPE ARCHITECT entered room and introduced self and role. Patient accompanied by boyfriend and dtr, Ly. Confirms she wants to return to [facility] post surgery. Understands transport may be a barrier. SENIOR LANDSCAPE ARCHITECT completed PASSR. CC Es kindly agreed to send updated clinicals to [facility]. Plan: return to [facility] when medically stable. transport may be barrier, waiting for PT rec for safe transport. [facility] able to accept Wednesday. CM team will continue to follow closely. OSWALDO Rojas Discharge Planning/Care Management Advanced directive, confirm from FAMILY Start: 02/03/23 01:10 Freq: Q24H Status: Active Protocol: Document 02/03/23 01:14 MW (Rec: 02/03/23 01:15 MW [id number]) Advance Directive, confirm on record Time 01:15 Person contacted pt Copy received No CM Discharge Assessment Start: 02/03/23 16:28 Freq: Status: Active Protocol: Document 02/03/23 16:28 SL (Rec: 02/03/23 16:33 SL [id number]) Discharge Planning Assessment Assigned Talkback Host OSWALDO Calderon/Assigned Designee Name Mark (son) Contact Information [phone] Advance Directives? Yes Advance Directives on File No History Provided By Patient,Family Member, Significant Other,Medical Record Prior Living Arrangements Skilled Nurse Facility Household Members significant other Type of transporation used prior to Relies on Others admit Facility Name Admitted From: [facility] Willing to Return to Facility? Yes Needs Assistance With Meal Prep,Home Chores / Shopping Patient/Family Preference Half-Way Facility Discharge Plan Half-Way Facility Transportation Arrangement facility transportation Additional Comment Patient son paying to hold bed at [facility], so no new referral is needed. Anastasia at [facility] was sent updated clinicals. If patient plan is SNF: Has PASSR been Yes completed? Has Agency SNF been contacted Yes Whiteboard Updated in Patient Room with Yes name and ext. # of Talkback Host Review Status In Process Next Review Type Continued Stay Review
[2023-02-03] MEDS: cefTRIAXone 1,000 MG in SODIUM CHLORIDE 0.9% 100 ML 200 MG IV (16:50)
--- NOTE | 2023-02-03 17:24 | PC.NURSE ---
coccyx redness, non-blanchable, pt has a waffle cushion, q2turn. per family report, pt is less confused today than yesterday. pt sitting in chair for dinner. 1pa to the bathroom w/fww, denied dizziness or light headedness when standing up. call light in reach.
[2023-02-03] MEDS: LACTATED RINGERS 1,000 ML 42 ML IV ×2 (17:53→20:32)
--- NOTE | 2023-02-03 18:07 | P.HP_ITS ---
History of Present Illness History of Present Illness Date Patient Seen: 02/03/23 Chief complaint: LT INTERTROCHANERIC FEMUR FRACTURE/DISPLACED Narrative: This 87-year-old female had a cerebrovascular accident approximately a month ago. She had been staying in a nursing facility. She had a fall there and was seen at an outside hospital on January 24. On that day CT scan was obtained which demonstrated a fracture of the proximal femur. She was told that this was a nondisplaced greater trochanter fracture and was instructed to limit her weight-bearing. She had worsening pain following this and re-presented to our hospital for evaluation. She was found to have a displaced intertrochanteric femur fracture. She reports that prior to her cerebrovascular accident she did not use ambulatory aids. She has overall had fairly good health. She has been admitted here to the Medical [facility]. 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 Hyperlipemia Other lack of coordination Age-related osteoporosis without current pathological fracture Polyosteoarthritis, unspecified Muscle weakness Difficulty in walking, not elsewhere classified Insomnia Unspecified dementia, unspecified severity, without behavioral disturbance, psychotic disturbance, mood disturbance, and anxiety Unspecified protein-calorie malnutrition Dysphagia, oropharyngeal phase Dysarthria following cerebral infarction Memory deficit following cerebral infarction Dysphagia following cerebral infarction Hemiplegia and hemiparesis following cerebral infarction affecting left non- dominant side Osteoarthritis Seasonal allergies Depression (~1999) Headache Osteoporosis Osteopenia Mumps Measles Chicken pox Recurrent sinusitis Fecal incontinence (~1999) Collagenous colitis (~2003) Breast cancer (~2001) Surgical History Presence of artificial knee joint, bilateral Social History household members: significant other Smoking Status: Never smoker second hand exposure: No alcohol intake: current substance use type: does not use Meds Home Medications and Allergies Home Medications Medication Instructions Recorded Confirmed Type budesonide 3 mg See Rx Instructions .Route 11/06/22 02/03/23 Rx capsule,delayed,extended release .COMPLEX #90 caps escitalopram oxalate 10 mg tablet 15 mg PO DAILY Depression 12/30/22 02/03/23 History acetaminophen 325 mg tablet 650 mg PO Q8H PRN Pain, Mild 02/03/23 02/03/23 History (Tylenol) aspirin 81 mg tablet,delayed 81 mg PO [facility] 02/03/23 02/03/23 History release (Adult Low Dose Aspirin) atorvastatin 40 mg tablet 40 mg PO BEDTIME Hyperlipidemia 02/03/23 02/03/23 History baclofen 5 mg PO Q8H PRN Muscle Spasms 02/03/23 02/03/23 History bisacodyl 10 mg rectal suppository 10 mg AL DAILY PRN Constipation 02/03/23 02/03/23 History (Dulcolax (bisacodyl)) bupropion HCl 75 mg tablet 150 mg PO BID 02/03/23 02/03/23 History clopidogrel 75 mg tablet 75 mg PO DAILY VTE prophylaxis 02/03/23 02/03/23 History donepezil 5 mg tablet 5 mg PO DAILY Dementia 02/03/23 02/03/23 History loperamide 2 mg tablet 2 mg PO QID PRN Diarrhea 02/03/23 02/03/23 History melatonin 3 mg tablet 6 mg PO BEDTIME Insomnia 02/03/23 02/03/23 History mineral oil 1 ea AL DAILY PRN Constipation 02/03/23 02/03/23 History ondansetron 4 mg disintegrating 4 mg translingual Q8H PRN 02/03/23 02/03/23 History tablet Nausea/vomiting oxycodone 5 mg tablet 5 mg PO Q4H PRN Pain management 02/03/23 02/03/23 History polyethylene glycol 3350 17 gram 17 g PO DAILY PRN Constipation 02/03/23 02/03/23 History oral powder packet (Miralax) sennosides 8.6 mg tablet (senna) 17.2 mg PO DAILY PRN Constipation 02/03/23 02/03/23 History Allergies Allergy/AdvReac Type Severity Reaction Status Date / Time No Known Drug Allergies Allergy Verified 12/29/22 10:38 Review of Systems Review of Systems ROS: Yes All systems reviewed with the patient and are negative except as otherwise documented Exam Vital Signs (past 8 hours): - 02/03/23 13:47 Temperature 98.8 F Pulse Rate 69 Respiratory Rate 16 Blood Pressure 142/63 H Pulse Oximetry 96 Oxygen Delivery Method Room Air Oxygen Flow Rate 0 Narrative Exam Narrative: Left lower examined exam: Leg held in a flexed position. Palpable DP pulse. Flexes and extends toes and ankle Const General: cooperative Orientation: alert and awake HENMT Head: normal to inspection Ears: hearing grossly normal bilaterally Eyes General: appearance normal, both eyes and all related structures Neck Neck: normal visual inspection Resp Effort & Inspection: normal respiratory effort and able to speak in complete sentences Cardio Pulses: other (peripheral pulses present) Skin Lesions: no lesions Rashes: no rashes Neuro General: patient alert, patient awake and moves all extremities Psych Appearance: grossly normal Objective Imaging CT scan - pelvis: My impression: CT scan of the pelvis as well as a traction view of the proximal femur both demonstrate an intertrochanteric hip fracture. Initial imaging obtained at our hospital was in an extremely flexed position which made it challenging to differentiate between intertrochanteric and femoral neck fracture patterns Labs 02/03/23 08:14 02/03/23 08:14 Labs: Laboratory Results - last 24 hr 02/02/23 02/02/23 02/02/23 21:48 22:25 22:42 WBC 15.2 H RBC 4.47 Hgb 13.3 Hct 39.4 MCV 88.1 MCH 29.7 MCHC 33.7 RDW 13.6 Plt Count 348 Neut % (Auto) 77.4 H Lymph % (Auto) 14.3 L [place] % (Auto) 7.0 Eos % (Auto) 0.6 L Baso % (Auto) 0.7 Neut # (Auto) 32310 H Lymph # (Auto) 2200 [place] # (Auto) 1100 H Eos # (Auto) 100 Baso # (Auto) 100 PT 14.3 H INR 1.2 Sodium 138 Potassium 2.3 L* Chloride 98 Carbon Dioxide 27 BUN 28 H Creatinine 0.75 Estimated GFR > 60 BUN/Creatinine Ratio 37.3 H Glucose 181 H Calcium 9.7 Magnesium Total Bilirubin 0.9 AST 28 ALT 35 H Alkaline Phosphatase 94 Total Protein 6.6 Albumin 3.6 Globulin 3.0 Albumin/Globulin Ratio 1.2 Lipase 45 Urine Color Yellow Urine Appearance Clear Urine pH 5.5 Ur Specific [place] >=1.030 H Urine Protein Trace H Urine Glucose (UA) Negative Urine Ketones Negative Urine Occult Blood 1+ H Urine Nitrate Positive H Urine Bilirubin Negative Urine Urobilinogen 0.2 Ur Leukocyte Esterase Negative Urine RBC 1-5/hpf Urine WBC 1-5/hpf Ur Squamous Epith Cells 0-1 /hpf Urine Bacteria Moderate (10-30) H Hyaline Casts 0-1/lpf Urine Mucus 1+ H Ur Culture Indicated? Specimen cultured Stl C. cayetanensis PCR Not detected Stool Rotavirus (PCR) Not detected Stool Adenovirus (PCR) Not detected Stool Astrovirus (PCR) Not detected Stool Cryptosporidium PCR Not detected Stl E.coli Shiga Tox PCR Not detected St Sh/Enteroin Ecoli PCR Not detected Stl Enterotoxigenic E PCR Not detected Stool EPEC (PCR) Not detected Stl E. histolytica PCR Not detected Stool Giardia Lamblia PCR Not detected Stool Sapovirus (PCR) Not detected Stl P. shigelloides PCR Not detected St Y.enterocolitica PCR Not detected Stool Vibrio (PCR) Not detected Stl Vibrio cholerae PCR Not detected Stl Enteroaggr Ecoli PCR Not detected Stl Norovirus GI/GII PCR Not detected Campylobacter (PCR) Not detected C. difficile Tox (PCR) Not detected Salmonella (PCR) Not detected Blood Type A Positive Antibody Screen Negative 02/03/23 08:14 WBC 12.2 H RBC 4.08 Hgb 12.1 Hct 35.6 L MCV 87.3 MCH 29.7 MCHC 34.0 RDW 13.9 Plt Count 291 Neut % (Auto) 69.6 Lymph % (Auto) 18.9 L [place] % (Auto) 10.0 Eos % (Auto) 1.2 L Baso % (Auto) 0.3 Neut # (Auto) 8500 H Lymph # (Auto) 2300 [place] # (Auto) 1200 H Eos # (Auto) 100 Baso # (Auto) 0 PT INR Sodium 138 Potassium 3.3 L Chloride 105 Carbon Dioxide 30 BUN 25 H Creatinine 0.62 Estimated GFR > 60 BUN/Creatinine Ratio 40.3 H Glucose 105 Calcium 9.1 Magnesium 1.9 Total Bilirubin AST ALT Alkaline Phosphatase Total Protein Albumin Globulin Albumin/Globulin Ratio Lipase Urine Color Urine Appearance Urine pH Ur Specific [place] Urine Protein Urine Glucose (UA) Urine Ketones Urine Occult Blood Urine Nitrate Urine Bilirubin Urine Urobilinogen Ur Leukocyte Esterase Urine RBC Urine WBC Ur Squamous Epith Cells Urine Bacteria Hyaline Casts Urine Mucus Ur Culture Indicated? Stl C. cayetanensis PCR Stool Rotavirus (PCR) Stool Adenovirus (PCR) Stool Astrovirus (PCR) Stool Cryptosporidium PCR Stl E.coli Shiga Tox PCR St Sh/Enteroin Ecoli PCR Stl Enterotoxigenic E PCR Stool EPEC (PCR) Stl E. histolytica PCR Stool Giardia Lamblia PCR Stool Sapovirus (PCR) Stl P. shigelloides PCR St Y.enterocolitica PCR Stool Vibrio (PCR) Stl Vibrio cholerae PCR Stl Enteroaggr Ecoli PCR Stl Norovirus GI/GII PCR Campylobacter (PCR) C. difficile Tox (PCR) Salmonella (PCR) Blood Type Antibody Screen Assessment & Plan Assessment and plan (1) Intertrochanteric fracture of left femur: Status: Acute Plan Plan to proceed with intramedullary nailing of left hip. Patient is on Plavix now will operate through this. Will plan to have her weight-bearing as tolerated postoperatively. Given her recent stroke and the chronicity of this injury I am very concerned about her postoperative ambulation status. She may have a hard time regaining her preoperative mobility. She is likely to remain institutionalized. Quality VTE Deep Vein Thrombosis/Pulmonary Embolism Present on Admission: No
[2023-02-03] MEDS: CEFAZOLIN 2 GM/100 ML PREMIX 100 ML IV (19:10)
--- NOTE | 2023-02-03 19:42 | SUR.OPER ---
Patient supine on padded [place] table, one arm on padded arm board at <90, other arm padded and secured with tape across patient's chest, both legs secured in padded traction boots and positioned per surgeon, padded post at patient's groin, pressure points checked and padded.
[2023-02-03] MEDS: BUPIVACAINE 0.25% (PF) 30 ML, EPINEPHrine 0.15 MG INJ (19:59)
--- NOTE | 2023-02-03 21:13 | P.OP_ITS ---
Operative Date/Time/Diagnoses Date of procedure: 02/03/23 Pre-op diagnosis: Intertrochanteric left femur fracture Post-op diagnosis: same Procedure & Clinicians Procedure: Intramedullary nailing of left femur fracture Same procedure as scheduled: Yes Surgeon: Mark Camp Click Yes if Unassisted: Yes Anesthesia Type: General Operative Notes Findings: Displaced left intertrochanteric femur fracture with significant flexion through the fracture site secondary to intact lesser trochanter Prosthetic devices, grafts, tissues, transplants, or devices: Jacob and nephew InterTAN 11.5 mm x 20 cm nail with 95 mm lag screw and 90 mm compression screw and 35 mm interlocking screw Estimated Blood Loss (mL): 450 Procedure in detail: This 87-year-old female patient had sustained a ground level fall and been evaluated at an outside hospital approximately a week prior to admission here. She had a nondisplaced proximal femur fracture. A CT scan was obtained. No MRI was obtained. The patient was discharged to a care home facility. That fracture eventually displaced and she presented for care at an outside hospital before transferring here. She had had a cerebrovascular accident approximately a month ago. I counseled her regarding the long-term risk of impaired mobility secondary to the combination of the cerebrovascular accident and this fracture. I discussed my plan of care with the proximally 6 of her family members. She was NPO ready at the time of my evaluation but had had Plavix the day before. The decision was made after consultation with her family to proceed with surgery this evening. The patient and her family members were met in the preoperative holding area after that initial discussion earlier in the day. All questions were answered. Informed consent was obtained. The operative site was marked. The patient was wheeled back to the operating room and placed on the [place] table. All bony prominences were padded. A perineal post was used. A time-out procedure was performed. The surgical site was prepped and draped in the usual sterile fashion. Initial fluoroscopic images were obtained which demonstrated good alignment on the AP view but significant flexion on the lateral view. I mapped out a an insertion point for the guidewire on the fluoroscopic images and obtained an appropriate start point. The greater trochanter was multi fragmentary and therefore I planned to enter into the portion of the greater trochanter which remained intact and gain an appropriate trajectory down the canal while the fracture remained well reduced on the lateral x-ray. I obtained an appropriate start point and introduced the guidewire and introduced the opening Reamer. This did require utilization of the honeycomb guide to anterior translate my guidewire slightly after my initial placement. With the guidewire in appropriate position on the AP and lateral views and the canal opened with the opening Reamer I introduced the nail. This was an 11.5 mm x 20 cm nail. I brought this down to the fracture site and obtained an appropriate proximal to distal position for the interlocking lag screw and compression screw in the proximal femur. I turned to a lateral view and was able to obtain a reduction of the flexion through the fracture site with direct pressure pushing from anterior to posterior with a mallet. I initially attempted to hold this reduction with a K-wire outside the nail however it did not achieve sufficient purchase and would not hold the fracture in place. I therefore placed a guidewire on the lateral view by 1st reducing the fracture with a mallet, then orienting the nail in the center of the femoral head, and then orienting the jig to intersect both the nail and the femoral head so that all 3 were in a line. This did require several attempts but I was eventually able to pass the guidewire in an appropriate trajectory while maintaining a reduction. I did find that as soon as the mallet was released the fracture would again flex on the lateral view. I attempted to place the guidewire across the acetabulum to hold it in place however it still would returned to a position of flexion after I did this. I therefore drilled for the compression screw as well as the lag screw on the lateral view while ensuring that the fracture remained reduced. I inserted the lag screw after measuring it at approximately 97 mm. I inserted the 95 mm. I did this while visualizing and on a lateral view to ensure maintenance of reduction. I also inserted the inner fragmentary compression screw. This was 5 mm shorter and achieved some compression across the fracture site while I continued to push from anterior to posterior with a mallet. Once the lag screw and the compression screw were both in place we did find that the fracture would remain reduced after releasing pressure from the mallet. I placed a distal interlock which measured 35 mm. This was placed in the static hole. I statically locked the nail in an attempt to prevent recurrence of the flexion deformity which had been recurring of various points throughout the case. Final fluoroscopic images were obtained demonstrating appropriate reduction and hardware positioning on AP and lateral views. The wound was closed with a combination of 2-0 Vicryl and maggie. Local anesthesia was injected throughout the wound. The wound was dressed with a soft dressing and the patient was awoken from anesthesia and brought to the PACU where she awoke without any apparent complication. Post-operative Plan for aftercare: Weightbearing as tolerated Aspirin DVT prophylaxis at a minimum. Recommend restarting Plavix on postoperative day 2 Ambulate with the assistance Anticipate discharge back to a care home facility Follow up in my clinic in 2 weeks for a wound check
--- NOTE | 2023-02-03 22:02 | PC.NURSE ---
Pt arrived from PACU 2149, drowsy but can follow commands. 2L NC sating at 98%. L hip dressing with tegraderm had some shadowing that was marked from PACU. New shadowing upon arrival, marked on dressing but still oozing from lower side of dressing that was Reinforced with 4x4 gauze and abd pad with 2 tegraderm. Small BM, cleaned pt, engle in place draining. Placed back on tele, SCDs on. Call light in reach, will monitor
--- NOTE | 2023-02-03 22:55 | PC.NURSE ---
L hip dressing oozing bright red blood, held pressure for 5 mins but the oozing continued. Notified Dr. Carbajal. Instructed that the dressing can be reinforced or changed as needed. Solomon stated pt was on plavix prior to surgery and to order CBC in am. Dressing reinforced with 3 abd pads and tape. Will continue to monitor.
[2023-02-04] VITALS (8 sets, daily range): BP systolic 103–134; BP diastolic 43–70; PULSE 81–95; RESP 15–17; TEMP 36.7–37.3; O2SAT 90–97
[2023-02-04] MEDS: CEFAZOLIN VIAL 1 GM in SODIUM CHLORIDE 0.9% 100 ML IV ×2 (01:53→11:29)
[2023-02-04 05:11] LABS: Hematocrit 25.3 % (36-46); Hemoglobin 8.6 g/dL (12.0-16.0); Mean Corpuscular Hemoglobin 30.1 PG (26-34); Mean Corpuscular Volume 88.4 fL (80-100); Platelet Count 275 X10^3/uL (150-400); Red Blood Cell Count 2.86 X10^6/uL (4.0-5.2); Red Cell Distribution Width 13.5 % (11.6-14.8)
[2023-02-04] MEDS: OXYCODONE IR 5 MG TABLET PO ×3 (05:15→18:01)
[2023-02-04 05:30] LABS: BUN Creatinine Ratio 36.1 (6-22); Blood Urea Nitrogen 22 mg/dL (7-17); Calcium 8.5 mg/dL (8.4-10.2); Carbon Dioxide 27 mmol/L (22-32); Chloride 106 mmol/L (98-107); Estimated Glomerular Filt Rate > 60 mL/min (>60); Glucose 140 mg/dL (80-110); HEMOLYSIS < 15 (0-50); Magnesium 1.6 mg/dL (1.6-2.3); Potassium 3.4 mmol/L (3.4-5.1); Sodium 137 mmol/L (137-145)
[2023-02-04] MEDS: BUDESONIDE 3 MG CAP PO (08:56)
[2023-02-04] MEDS: ASPIRIN EC 81 MG TABLET PO ×2 (08:56→21:04)
[2023-02-04] MEDS: MULTIVITAMIN 1 TABLET 1 TAB PO (08:56)
[2023-02-04] MEDS: buPROPion 75 MG TABLET 150 MG PO ×2 (08:56→21:04)
[2023-02-04] MEDS: MAGNESIUM CHLORIDE 64 MG TABLET 128 MG PO (09:19)
[2023-02-04] MEDS: POTASSIUM CHLORIDE 20 MEQ TAB 40 MEQ PO (09:20)
--- NOTE | 2023-02-04 11:21 | CM.DPC ---
DCP Cont. Reviewed EMR for medical status updates. No changes. Renetta holding a bed for placement Wednesday, will need to clarify transportation and if she can travel in a wheelchair. Update PASSAR and fax to reviewer per new PASSAR rules. Follow closely.
--- NOTE | 2023-02-04 11:25 | PT.IIE ---
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 (02/03/23) Other symptoms and signs involving cognitive functions and awareness (02/03/23) Displaced intertrochanteric fracture of left femur, initial encounter for closed fracture (02/03/23) Other reduced mobility (02/03/23) Other specified health status (02/03/23) Surgery Performed Operation Date: 02/03/23 17:45 Actual Procedures p Intramedullary Nailing Femur(Left) - Mark Camp MD Surgical History (Last Reviewed 02/03/23 @ 05:18 by Arnav Reyes MD) Presence of artificial knee joint, bilateral Medical History (Last Updated 02/03/23 @ 05:33 by Arnav Reyes MD) Age-related osteoporosis without current pathological fracture 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 (BMI) of 19.9 or less in adult Breast cancer (~2001) Chicken pox Cognitive deficits Collagenous colitis (~2003) Depression (~1999) Depression Difficulty in walking, not elsewhere classified Dysarthria following cerebral infarction Dysphagia following cerebral infarction Dysphagia, oropharyngeal phase Fecal incontinence (~1999) Headache Hemiplegia and hemiparesis following cerebral infarction affecting left non-dominant side Hyperlipemia Insomnia 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 Measles Memory deficit following cerebral infarction Mumps Muscle weakness Osteoarthritis Osteopenia Osteoporosis Other lack of coordination Polyosteoarthritis, unspecified Recurrent sinusitis Seasonal allergies Unspecified dementia, unspecified severity, without behavioral disturbance, psychotic disturbance, mood disturbance, and anxiety Unspecified protein-calorie malnutrition Physical Therapy Inpatient Evaluation/Re-Eval M1 PT/OT-IP Prior Functional Status Start: 02/04/23 12:27 Freq: NEEDED Status: Active Protocol: Document 02/04/23 12:27 AB (Rec: 02/04/23 13:02 AB [id number]) Medical Review Prior Functional Status Medical History Reviewed Yes Communication Pt is able to communicate but has difficulty expressing her needs. She is able to follow commands. Mobility and Gait Pt's partner states she was ambulating with FWW at acute rehab then at SNF before she had her fall. Activities of Daily Living and IADL's Pt required assistance for ADLs and IADLs. Prior Functional Level (Other details) Pt had stoke recently which caused left sided weakness. Social History Household Members significant other Living Arrangements Skilled Nurse Facility Home Environment Standard Height Toilet,Walk in Shower Home Equipment Front Wheel Walker,Shower Seat with Backrest,Hand Held Shower,Hospital Bed,Grab Bars Near Toilet,Grab Bars In Shower Additional Social History Comment Prior to stroke, pt lived alone though her partner stayed with her 4x/week. Her home is a single level with 2 SNEHA and right hand rail, standard toilet with grab bars , and tub/shower with grab bars. M2 PT-IP Current Condition Start: 02/04/23 12:27 Freq: NEEDED Status: Active Protocol: Document 02/04/23 12:27 AB (Rec: 02/04/23 13:02 AB [id number]) Physical Therapy Current Condition Current Condition Evaluation Date 02/04/23 Treatment Diagnosis s/p intramedullary nailing of left femur fx Onset Date 02/03/23 M3 PT-IP Subjective Start: 02/04/23 12:27 Freq: NEEDED Status: Active Protocol: Document 02/04/23 12:27 AB (Rec: 02/04/23 13:02 AB [id number]) Subjective Physical Therapy Visit Type Type Initial Evaluation Visit Start Time 10:51 Visit Stop Time 11:25 Total Visit Minutes 34 Physical Therapy Visit Comments Patient Comments Pt presents semi supine in bed with partner at bedside. She is agreeable to mobilizing with PT. Therapy Pain Assessment Pain When Pain Assessed During Mobility Pain Present Pain Present Pain Reported Location Left Hip Scale Used unable to quantify Pain Behaviors Calling Out,Facial Grimacing, Wincing Pain Management Techniques Re-positioning M4 PT-IP Mobility and Gait Start: 02/04/23 12:27 Freq: NEEDED Status: Active Protocol: Document 02/04/23 12:27 AB (Rec: 02/04/23 13:02 AB [id number]) PT-Bed Mobility Assessment Supine to Sit Supine to Sit Maximum Assistance,1 Person Assistance,Head of Bed Elevated,Bedrails Sit to Supine Sit to Supine Maximum Assistance,1 Person Assistance,Head of Bed Elevated,Bedrails Scooting Scooting to Edge of Bed Moderate Assistance Scooting Up and Down in Bed Dependent PT-Transfer Assessment Sit to and From Stand Sit to and from Stand Moderate Assistance,1 Person Assistance,Use of Upper Extremities Equipment Transfer Assistive Device Gait Belt,Front Wheeled Walker Comments Mobility Comments The pt is unable to perform bed mobility from supine position at this time. HOB was elevated, and pt used hand rails to get from semi supine to EOB, with PT providing maxA to move LEs since pt is unable to move LLE, as well as to minimize pain. As PT mobilizes LEs, PT also helps pt to maintain upright trunk position as she gets to EOB. Once sitting at EOB, pt requires bed rails to maintain sitting balance. The pt required an extended seated rest break due to reports of dizziness, though BP is stable . STS is then attempted with pt requiring modA x1 with FWW, but she is unable to fully WB through LLE, and reports needing to sit. The pt declines further mobility, requesting to return to bed. The pt returned to bed with HOB elevated in order to allow pt to use hand rails for assistance. RN then assisted PT in scooting the pt up in bed once pt was supine. All needs were met, call light is in reach, bed alarm is set, and partner is at bedside. RN was notified of findings. PT-Balance Assessment Sitting Balance and Reactions Static Sitting Balance Ability Fair Dynamic Sitting Balance Ability Poor Standing Balance and Reactions Static Standing Balance Ability Poor Dynamic Standing Balance Ability Poor Device Used FWW M5 PT-IP Objective Assessments Start: 02/04/23 12:27 Freq: NEEDED Status: Active Protocol: Document 02/04/23 12:27 AB (Rec: 02/04/23 13:02 AB [id number]) Orientation Orientation/Cognition Level of Alertness Confusional State Orientation Name,Date,Year Language Function Ability Expressive Aphasia Safety Awareness Decreased Safety Awareness Memory Description 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,Penitentiary Impaired Gross Range of Motion Upper Extremity ROM Assessment Within Functional Limits Lower Extremity ROM Assessment Left Impaired Strength Upper Extremity Strength Assessment Within Functional Limits Lower Extremity Strength Assessment Left Impaired M6 PT-IP Treatment Start: 02/04/23 12:27 Freq: NEEDED Status: Active Protocol: Document 02/04/23 12:27 AB (Rec: 02/04/23 13:02 AB [id number]) Physical Therapy Treatment Education Education Provided Precautions,Weight Bearing Status,Post-Op Packet,Safety Brace Education Patient,Caregiver M7 PT-IP Assessment and Plan Start: 02/04/23 12:27 Freq: NEEDED Status: Active Protocol: Document 02/04/23 12:27 AB (Rec: 02/04/23 13:02 AB [id number]) PT Summary Assessment and Plan Potential Rehabilitation Potential Fair Status of Condition at Evaluation Stable Summary Impairments Pain,ROM,Strength,Balance, Cognition,Bed Mobility, Transfers,Gait,Activity Tolerance Assessment Summary Concepcion Berumen is an 87 year old female patient who is s/p left intramedullary nailing of left femur fracture performed 02/03/23. The pt currently requires maxA x1-2 to perform bed mobility, modA x1 to perform STS, and is unable to perform further mobility during this session. She is able to follow commands but had difficulty expressing her needs. Based on her current level of function, PT recommends discharge to SNF to continue stroke and post operative rehab. The pt would benefit from skilled PT at this time. Goals Bed Mobility Goal Moderate Assistance Transfer Goal Minimal Assistance,Front Wheeled Walker Gait Goal Minimal Assistance,Front Wheel Walker Gait Distance 10 Other Goals Pt to perform bed mobility with Don x1 to show improving ability to perform functional mobility. Pt to perform STS/transfer with CGA and FWW to show improving LE strength. Days to Meet Goals 5 Frequency of Treatment Frequency Of Treatment Twice a Day Treatment Plan Physical Therapy Treatment Plan Bed Mobility Training,Transfer Training,Gait Training, Therapeutic Exercise,Balance Retraining,Post Op Education, Discharge Planning,Hot or Cold Pack,Neuromuscular Re-ed, Coordination Retraining,Manual Therapy Weight Bearing Status Weight Bearing Status Weight Bear as Tolerated Recommendations To Nursing Amount of Assist Needed 1 Person Assist,2 Person Assist Discharge Recommendations PT Discharge Recommendations SNF Rehab Transportation Needs at Discharge Wheelchair/Cabulance
--- NOTE | 2023-02-04 11:28 | P.PN_ITS ---
Subjective Subjective Interval history: SUBJECTIVE: 87-year-old female seen postoperative day 1 following intramedullary nailing of left hip. She is alert and oriented. Having some pain. Has had some strikethrough on her dressing which has been reinforced OBJECTIVE: Left Lower Extremity: -Inspection: Dressing in place over lateral thigh does not currently have any strikethrough -Palpation: Deferred -Range of Motion: Prefers to hold hip in a position of flexion. This has been her preference since the injury occurred and may be related to her spasticity from her stroke -Neuro: [Flexes hip, flexes/extends knee,] [dorsiflexes/plantarflexes ankle, flexes/extends hallux, sensation intact to light touch in the superficial peroneal, deep peroneal, tibial, saphenous, sural nerve distributions] -Vascular: [Warm and well perfused with brisk capillary refill, palpable posterior tibial and dorsalis pedis pulses] Hemoglobin 8.6 ASSESSMENT: 87-year-old female with a stroke 1 month ago and a left intertrochanteric hip fracture which underwent intramedullary nail placement last night who has been on Plavix and had most recently had Plavix 2 days ago PLAN: 1. Weightbearing as tolerated 2. Can resume Plavix on postoperative day 2 3. Dressing can be removed and replaced as needed. It is a Xeroform, 4 x 4, Tegaderm. Anticipate ongoing oozing from the surgical site given her preoperative Plavix 4. Hemoglobin is 8.6 but there was increased bleeding during the surgery and she has been having ongoing oozing from the surgical site postoperatively. Given her Plavix I anticipate she will eventually need a blood transfusion. Continue monitoring CBC regularly 5. In terms of discharge planning the combination of her recent stroke and this hip fracture likely will result in enough impaired mobility that she will need to return to a detention facility. I do not anticipate that will happen before Wednesday Exam Vital Signs (past 8 hours): - 02/04/23 05:37 02/04/23 09:01 Temperature 98.0 F 98.6 F Pulse Rate 95 H 81 Respiratory Rate 15 Blood Pressure 134/70 121/62 Pulse Oximetry 97 96 Oxygen Flow Rate 0 Oxygen Delivery Method Nasal Cannula Oxygen Flow Rate 0 Objective Labs 02/04/23 04:34 02/04/23 04:34 Labs: Laboratory Results - last 24 hr 02/04/23 04:34 WBC 12.0 H RBC 2.86 L Hgb 8.6 L Hct 25.3 L MCV 88.4 MCH 30.1 MCHC 34.0 RDW 13.5 Plt Count 275 Sodium 137 Potassium 3.4 Chloride 106 Carbon Dioxide 27 BUN 22 H Creatinine 0.61 Estimated GFR > 60 BUN/Creatinine Ratio 36.1 H Glucose 140 H Calcium 8.5 Magnesium 1.6 PFSH Medical History (Updated 02/03/23 @ 05:33 by Arnav Reyes MD) Depression Cognitive deficits 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 (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 Hyperlipemia Other lack of coordination Age-related osteoporosis without current pathological fracture Polyosteoarthritis, unspecified Muscle weakness Difficulty in walking, not elsewhere classified Insomnia Unspecified dementia, unspecified severity, without behavioral disturbance, psychotic disturbance, mood disturbance, and anxiety Unspecified protein-calorie malnutrition Dysphagia, oropharyngeal phase Dysarthria following cerebral infarction Memory deficit following cerebral infarction Dysphagia following cerebral infarction Hemiplegia and hemiparesis following cerebral infarction affecting left non- dominant side Osteoarthritis Seasonal allergies Depression (~1999) Headache Osteoporosis Osteopenia Mumps Measles Chicken pox Recurrent sinusitis Fecal incontinence (~1999) Collagenous colitis (~2003) Breast cancer (~2001) Surgical History Presence of artificial knee joint, bilateral Social History household members: significant other Smoking Status: Never smoker second hand exposure: No alcohol intake: current substance use type: does not use Quality VTE Deep Vein Thrombosis/Pulmonary Embolism Present on Admission: No
--- NOTE | 2023-02-04 12:16 | PM.PN.1 ---
Subjective Subjective Date Patient Seen: 02/04/23 Time Patient Seen: 08:00 Interval history: She has quite a bit of pain in her leg. Exam Vital Signs (past 8 hours): - 02/04/23 05:37 02/04/23 09:01 Temperature 98.0 F 98.6 F Pulse Rate 95 H 81 Respiratory Rate 15 Blood Pressure 134/70 121/62 Pulse Oximetry 97 96 Oxygen Flow Rate 0 Oxygen Delivery Method Nasal Cannula Oxygen Flow Rate 0 Narrative Exam Narrative: GEN: in pain CV: regular rate and rhythm PULM: clear bilaterally EXT: left leg bandaged NEURO: dysarthria noted, left sided weakness Objective Labs 02/04/23 04:34 02/04/23 04:34 Labs: Laboratory Results - last 24 hr 02/04/23 04:34 WBC 12.0 H RBC 2.86 L Hgb 8.6 L Hct 25.3 L MCV 88.4 MCH 30.1 MCHC 34.0 RDW 13.5 Plt Count 275 Sodium 137 Potassium 3.4 Chloride 106 Carbon Dioxide 27 BUN 22 H Creatinine 0.61 Estimated GFR > 60 BUN/Creatinine Ratio 36.1 H Glucose 140 H Calcium 8.5 Magnesium 1.6 PFSH Medical History (Updated 02/03/23 @ 05:33 by Arnav Reyes MD) Depression Cognitive deficits 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 (BMI) of 19.9 or less in adult care home (current) use of 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/antiplatelets Hyperlipemia Other lack of coordination Age-related osteoporosis without current pathological fracture Polyosteoarthritis, unspecified Muscle weakness Difficulty in walking, not elsewhere classified Insomnia Unspecified dementia, unspecified severity, without behavioral disturbance, psychotic disturbance, mood disturbance, and anxiety Unspecified protein-calorie malnutrition Dysphagia, oropharyngeal phase Dysarthria following cerebral infarction Memory deficit following cerebral infarction Dysphagia following cerebral infarction Hemiplegia and hemiparesis following cerebral infarction affecting left non-dominant side Osteoarthritis Seasonal allergies Depression (~1999) Headache Osteoporosis Osteopenia Mumps Measles Chicken pox Recurrent sinusitis Fecal incontinence (~1999) Collagenous colitis (~2003) Breast cancer (~2001) Surgical History Presence of artificial knee joint, bilateral Social History household members: significant other Smoking Status: Never smoker second hand exposure: No alcohol intake: current substance use type: does not use Assessment & Plan Assessment and plan (1) Intertrochanteric fracture of left femur: Status: Acute Plan: -/sp OR on 04/05 -management per ortho -likely needs SNF (2) Hypokalemia: Status: Acute Plan: Severe, GI loses - chronic lose stool from collagenous collitis. Suplemented iv and PO - monitored lytes - not clear if colitis getting worse or she just did not have enough of KCl - continuing budesonide (3) Acute ischemic right MCA stroke: Status: Acute Plan: statin, ASA and Plavix. aspirin BID ordered hold plavix for now, given aspirin bid ordered and drop in hemoglobin (4) Acute left hemiparesis: Status: Acute Plan: Arm affected more then the leg. PT, OT (5) Cognitive deficits: Status: Acute Plan: on Donepezil at home. Possibly vascular, apparently worsened after the stroke (6) Impaired mobility and ADLs: Status: Acute Plan: PT, OT, supportive care (7) Depression: Status: Acute Plan: Wellbutrin 150 mg bid, Lexapro 15 mg hs Assessment & Plan narrative: #Anemia -expected post-operative -continue to monitor -may need transfusion Quality VTE Deep Vein Thrombosis/Pulmonary Embolism Present on Admission: No
[2023-02-04] MEDS: OXYCODONE IR 10 MG TABLET PO (13:31)
--- NOTE | 2023-02-04 13:59 | PT.IPTN ---
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 (02/03/23) Other symptoms and signs involving cognitive functions and awareness (02/03/23) Displaced intertrochanteric fracture of left femur, initial encounter for closed fracture (02/03/23) Other reduced mobility (02/03/23) Other specified health status (02/03/23) Surgery Performed Operation Date: 02/03/23 17:45 Actual Procedures p Intramedullary Nailing Femur(Left) - Mark Camp MD Physical Therapy Treatment Note M2 PT-IP Current Condition Start: 02/04/23 12:27 Freq: NEEDED Status: Active Protocol: Document 02/04/23 12:27 AB (Rec: 02/04/23 13:02 AB [id number]) Physical Therapy Current Condition Current Condition Evaluation Date 02/04/23 Treatment Diagnosis s/p intramedullary nailing of left femur fx Onset Date 02/03/23 M3 PT-IP Subjective Start: 02/04/23 12:27 Freq: NEEDED Status: Active Protocol: Document 02/04/23 14:17 TS (Rec: 02/04/23 14:35 TS [id number]) Subjective Physical Therapy Visit Type Type Treatment Note Visit Start Time 13:59 Visit Stop Time 14:16 Total Visit Minutes 17 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 Pt agreed to OOB with PT. Therapy Pain Assessment Pain When Pain Assessed At Rest Pain Present Pain Present Pain Reported M4 PT-IP Mobility and Gait Start: 02/04/23 12:27 Freq: NEEDED Status: Active Protocol: Document 02/04/23 14:17 TS (Rec: 02/04/23 14:35 TS [id number]) PT-Bed Mobility Assessment Supine to Sit Supine to Sit Maximum Assistance,1 Person Assistance,Head of Bed Elevated,Bedrails Sit to Supine Sit to Supine Maximum Assistance,2 Person Assistance,Head of Bed Elevated,Bedrails Scooting Scooting to Edge of Bed Maximum Assistance PT-Transfer Assessment Sit to and From Stand Sit to and from Stand Maximum Assistance,1 Person Assistance,Use of Upper Extremities Equipment Transfer Assistive Device Gait Belt,Front Wheeled Walker Comments Mobility Comments Supine to sit MaxA x1 with HOB elevated and LEs brought over EOB together. Pt required ModA-Sera for sitting balance at EOB due to L sided neglect, pt requires cues to lean to R side. Pt attempted sit to stand x2 with FWW MaxA, could not come into standing, pt will not wber on L side due to pain and guarding. Pt reports having BM sitting EOB, nursing called to assist. Sit to supine into bed MaxA x2. Pt was left with nursing tending to needs. Gait Assessment Comments Gait Comments Unable at this time PT-Balance Assessment Sitting Balance and Reactions Static Sitting Balance Ability Fair Dynamic Sitting Balance Ability Poor Standing Balance and Reactions Static Standing Balance Ability Poor Dynamic Standing Balance Ability Poor Device Used FWW M5 PT-IP Objective Assessments Start: 02/04/23 12:27 Freq: NEEDED Status: Active Protocol: Document 02/04/23 12:27 AB (Rec: 02/04/23 13:02 AB [id number]) Orientation Orientation/Cognition Level of Alertness Confusional State Orientation Name,Date,Year Language Function Ability Expressive Aphasia Safety Awareness Decreased Safety Awareness Memory Description 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,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 Impaired Gross Range of Motion Upper Extremity ROM Assessment Within Functional Limits Lower Extremity ROM Assessment Left Impaired Strength Upper Extremity Strength Assessment Within Functional Limits Lower Extremity Strength Assessment Left Impaired M6 PT-IP Treatment Start: 02/04/23 12:27 Freq: NEEDED Status: Active Protocol: Document 02/04/23 14:17 TS (Rec: 02/04/23 14:35 TS [id number]) Physical Therapy Treatment Education Education Provided Precautions,Weight Bearing Status,Post-Op Packet,Safety M7 PT-IP Assessment and Plan Start: 02/04/23 12:27 Freq: NEEDED Status: Active Protocol: Document 02/04/23 14:17 TS (Rec: 02/04/23 14:35 TS [id number]) PT Summary Assessment and Plan Potential Rehabilitation Potential Fair Summary Impairments Pain,ROM,Strength,Balance, Cognition,Bed Mobility, Transfers,Gait,Activity Tolerance Progress Towards Goals Slow Progress due to Pain,Slow Progress due to Medical Issues,Slow Progress due to Activity Tolerance Assessment Summary Concepcion is making slow progress with her mobility this session . She requires MaxA x1 for supine to sit and HOB elevated . She scooted to EOB MaxA with use of transfer pad. Pt sat EOB with L sided neglect, requred ModA-Sera to stay upright. She attempted sit to stand x2 MaxA x1 with FWW, pt continues to not wber on L side and could fully come into standing. PT continues to recommend SNF rehab at this time. Goals Bed Mobility Goal Moderate Assistance Transfer Goal Minimal Assistance,Front Wheeled Walker Gait Goal Minimal Assistance,Front Wheel Walker Gait Distance 10 Other Goals Pt to perform bed mobility with Sera x1 to show improving ability to perform functional mobility. Pt to perform STS/transfer with CGA and FWW to show improving LE strength. Days to Meet Goals 5 Frequency of Treatment Frequency Of Treatment Twice a Day Treatment Plan Physical Therapy Treatment Plan Bed Mobility Training,Transfer Training,Gait Training, Therapeutic Exercise,Balance Retraining,Post Op Education, Discharge Planning,Hot or Cold Pack,Neuromuscular Re-ed, Coordination Retraining,Manual Therapy Weight Bearing Status Weight Bearing Status Weight Bear as Tolerated Recommendations To Nursing Amount of Assist Needed 2 Person Assist Discharge Recommendations PT Discharge Recommendations SNF Rehab Transportation Needs at Discharge Wheelchair/Cabulance,Stretcher /Ambulance
[2023-02-04] MEDS: cefTRIAXone 1,000 MG in SODIUM CHLORIDE 0.9% 100 ML 200 MG IV (17:16)
[2023-02-04 18:42] LABS: Mean Corpuscular HGB Conc 34.3 % (30-36); Mean Corpuscular Hemoglobin 30.4 PG (26-34); Mean Corpuscular Volume 88.7 fL (80-100); Platelet Count 280 X10^3/uL (150-400); Red Cell Distribution Width 13.5 % (11.6-14.8); White Blood Cell Count 11.3 X10^3/uL (4.5-11.0)
[2023-02-04 18:46] LABS: Hematocrit 20.4 % (36-46)
[2023-02-04] MEDS: HYDROMORPHONE 0.5 MG INJ IV (21:02)
[2023-02-04] MEDS: ESCITALOPRAM 10 MG TABLET 15 MG PO (21:02)
[2023-02-04] MEDS: ATORVASTATIN 20 MG TABLET 40 MG PO (21:04)
[2023-02-05] VITALS: BP 131/52; PULSE 85; RESP 17; TEMP 36.8; O2SAT 95
[2023-02-05] MEDS: HYDROMORPHONE 0.5 MG INJ IV (03:51)
[2023-02-05 04:00] VITALS: BP 136/54; PULSE 82; RESP 17; TEMP 36.8; O2SAT 96
[2023-02-05 05:47] LABS: Hematocrit 24.9 % (36-46); Hemoglobin 8.5 g/dL (12.0-16.0); Mean Corpuscular HGB Conc 34.4 % (30-36); Mean Corpuscular Hemoglobin 29.4 PG (26-34); Mean Corpuscular Volume 85.6 fL (80-100); Platelet Count 231 X10^3/uL (150-400); Red Blood Cell Count 2.91 X10^6/uL (4.0-5.2); Red Cell Distribution Width 14.9 % (11.6-14.8); White Blood Cell Count 10.8 X10^3/uL (4.5-11.0)
[2023-02-05 06:04] LABS: BUN Creatinine Ratio 32.4 (6-22); Blood Urea Nitrogen 22 mg/dL (7-17); Calcium 8.6 mg/dL (8.4-10.2); Carbon Dioxide 30 mmol/L (22-32); Chloride 102 mmol/L (98-107); Estimated Glomerular Filt Rate > 60 mL/min (>60); Glucose 95 mg/dL (80-110); HEMOLYSIS < 15 (0-50); Magnesium 1.7 mg/dL (1.6-2.3); Sodium 134 mmol/L (137-145)
[2023-02-05] MEDS: ASPIRIN EC 81 MG TABLET PO (08:02)
[2023-02-05] MEDS: MAGNESIUM CHLORIDE 64 MG TABLET 128 MG PO (08:02)
[2023-02-05] MEDS: BUDESONIDE 3 MG CAP PO (08:02)
[2023-02-05] MEDS: buPROPion 75 MG TABLET 150 MG PO (08:02)
[2023-02-05] MEDS: MULTIVITAMIN 1 TABLET 1 TAB PO (08:02)
[2023-02-05] MEDS: POTASSIUM CHLORIDE 20 MEQ TAB 40 MEQ PO ×2 (08:04→14:28)
[2023-02-05] MEDS: OXYCODONE IR 5 MG TABLET PO ×2 (08:04→14:28)
[2023-02-05 08:30] VITALS: BP 131/55; PULSE 90; RESP 16; TEMP 37.8; O2SAT 95
--- NOTE | 2023-02-05 08:55 | PT.IPTN ---
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 (02/03/23) Other symptoms and signs involving cognitive functions and awareness (02/03/23) Displaced intertrochanteric fracture of left femur, initial encounter for closed fracture (02/03/23) Other reduced mobility (02/03/23) Other specified health status (02/03/23) Surgery Performed Operation Date: 02/03/23 17:45 Actual Procedures p Intramedullary Nailing Femur(Left) - Mark Camp MD Physical Therapy Treatment Note M2 PT-IP Current Condition Start: 02/04/23 12:27 Freq: NEEDED Status: Active Protocol: Document 02/04/23 12:27 AB (Rec: 02/04/23 13:02 AB [id number]) Physical Therapy Current Condition Current Condition Evaluation Date 02/04/23 Treatment Diagnosis s/p intramedullary nailing of left femur fx Onset Date 02/03/23 M3 PT-IP Subjective Start: 02/04/23 12:27 Freq: NEEDED Status: Active Protocol: Document 02/05/23 09:22 TS (Rec: 02/05/23 09:40 TS [id number]) Subjective Physical Therapy Visit Type Type Treatment Note Visit Start Time 08:55 Visit Stop Time 09:21 Total Visit Minutes 26 Notes Family present in room Number of TOUCHER UP Visits 2 Physical Therapy Visit Comments Patient Comments Pt found resting in bed, is agreeable to PT this morning. Therapy Pain Assessment Pain When Pain Assessed During Mobility Pain Present Pain Present Pain Reported M4 PT-IP Mobility and Gait Start: 02/04/23 12:27 Freq: NEEDED Status: Active Protocol: Document 02/05/23 09:22 TS (Rec: 02/05/23 09:40 TS [id number]) PT-Bed Mobility Assessment Supine to Sit Supine to Sit Maximum Assistance,1 Person Assistance,Head of Bed Elevated,Bedrails Sit to Supine Sit to Supine Maximum Assistance,2 Person Assistance,Head of Bed Elevated,Bedrails Scooting Scooting to Edge of Bed Maximum Assistance Scooting Up and Down in Bed Dependent PT-Transfer Assessment Sit to and From Stand Sit to and from Stand Maximum Assistance,2 Person Assistance,Use of Upper Extremities Equipment Transfer Assistive Device Gait Belt,Front Wheeled Walker Comments Mobility Comments Pt performed heel slides x6 and ankle pumps prior to mobility. BP in supine 124/61. Supine to sit MaxA x1 for uprighting trunk and LEs over EOB. She scooted EOB MaxA x1 with use of transfer pad, pt required cues for handrail assist with LUE. She sat EOB CGA with BUE support, demonstrates better use of LUE. She performed sit to stand with FWW and MaxA x2. In standing pt requires cues for L foot on ground, due to contracture she TTWB on L side , demonstrates some L sided neglect, requires cues to lean to R. Pt attempted to take a step forward in FWW, unable at this time. Pt was brought back to bed, Sit to supine MaxA x2. Pt was left in bed, family in room, nursing tending to needs. Gait Assessment Comments Gait Comments Unable at this time PT-Balance Assessment Sitting Balance and Reactions Static Sitting Balance Ability Fair Dynamic Sitting Balance Ability Poor Standing Balance and Reactions Static Standing Balance Ability Poor Dynamic Standing Balance Ability Poor Device Used FWW M5 PT-IP Objective Assessments Start: 02/04/23 12:27 Freq: NEEDED Status: Active Protocol: Document 02/04/23 12:27 AB (Rec: 02/04/23 13:02 AB [id number]) Orientation Orientation/Cognition Level of Alertness Confusional State Orientation Name,Date,Year Language Function Ability Expressive Aphasia Safety Awareness Decreased Safety Awareness Memory Description 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,Penitentiary Impaired Gross Range of Motion Upper Extremity ROM Assessment Within Functional Limits Lower Extremity ROM Assessment Left Impaired Strength Upper Extremity Strength Assessment Within Functional Limits Lower Extremity Strength Assessment Left Impaired M6 PT-IP Treatment Start: 02/04/23 12:27 Freq: NEEDED Status: Active Protocol: Document 02/05/23 09:22 TS (Rec: 02/05/23 09:40 TS [id number]) Physical Therapy Treatment Education Education Provided Precautions,Weight Bearing Status,Post-Op Packet,Safety M7 PT-IP Assessment and Plan Start: 02/04/23 12:27 Freq: NEEDED Status: Active Protocol: Document 02/05/23 09:22 TS (Rec: 02/05/23 09:40 TS [id number]) PT Summary Assessment and Plan Potential Rehabilitation Potential Fair Summary Impairments Pain,ROM,Strength,Balance, Cognition,Bed Mobility, Transfers,Gait,Activity Tolerance Progress Towards Goals Slow Progress due to Pain,Slow Progress due to Medical Issues,Slow Progress due to Activity Tolerance Assessment Summary Concepcion continues to make slow progress with her mobility. She is MaxA x1 for supine to sit and requires max cueing for use of handrails. She requires MaxA x2 for sit to stand with FWW. She could TTWB on L side this session but due to contracture cannot get foot flat. She is unable to take steps at this time. She continues to demonstrate L sided neglect in standing in and sitting EOB but is improved somewhat from last session. PT continues to recommend SNF rehab at this time. Goals Bed Mobility Goal Moderate Assistance Transfer Goal Minimal Assistance,Front Wheeled Walker Gait Goal Minimal Assistance,Front Wheel Walker Gait Distance 10 Other Goals Pt to perform bed mobility with Don x1 to show improving ability to perform functional mobility. Pt to perform STS/transfer with CGA and FWW to show improving LE strength. Days to Meet Goals 5 Frequency of Treatment Frequency Of Treatment Twice a Day Treatment Plan Physical Therapy Treatment Plan Bed Mobility Training,Transfer Training,Gait Training, Therapeutic Exercise,Balance Retraining,Post Op Education, Discharge Planning,Hot or Cold Pack,Neuromuscular Re-ed, Coordination Retraining,Manual Therapy Weight Bearing Status Weight Bearing Status Weight Bear as Tolerated Recommendations To Nursing Amount of Assist Needed 2 Person Assist Discharge Recommendations PT Discharge Recommendations SNF Rehab Transportation Needs at Discharge Wheelchair/Cabulance,Stretcher /Ambulance
[2023-02-05] MEDS: ACETAMINOPHEN 325 MG TABLET 650 MG PO (10:16)
--- NOTE | 2023-02-05 10:58 | P.PN_ITS ---
Subjective Subjective Date Patient Seen: 02/05/23 Time Patient Seen: 10:59 Interval history: Pt sitting up in bed, resting comfortably. Complains of cramping pain in abdomen, minimal hip pain. Planning for discharge back to SNF as she has no help at home. Exam Vital Signs (past 8 hours): - 02/05/23 04:00 02/05/23 08:30 Temperature 98.2 F 100.0 F H Pulse Rate 82 90 Respiratory Rate 17 16 Blood Pressure 136/54 L 131/55 L Pulse Oximetry 96 95 Oxygen Flow Rate 0 0 Oxygen Delivery Method Nasal Cannula Oxygen Flow Rate 0 Narrative Exam Narrative: 5/5 strength in PF, DF, EHL; 3/5 hip flexors, quadriceps, hamstrings on left. Sensation to light touch intact throughout LLE. Calf soft, compressible, nontender. Dressing placed intraoperatively CDI. Objective Labs 02/05/23 04:50 02/05/23 04:50 Labs: Laboratory Results - last 24 hr 02/02/23 02/04/23 02/05/23 21:48 18:32 04:50 WBC 11.3 H 10.8 RBC 2.30 L 2.91 L Hgb 7.0 L 8.5 L Hct 20.4 L* 24.9 L MCV 88.7 85.6 D MCH 30.4 29.4 MCHC 34.3 34.4 RDW 13.5 14.9 H Plt Count 280 231 Sodium 134 L Potassium 3.0 L Chloride 102 Carbon Dioxide 30 BUN 22 H Creatinine 0.68 Estimated GFR > 60 BUN/Creatinine Ratio 32.4 H Glucose 95 Calcium 8.6 Magnesium 1.7 Blood Type A Positive Antibody Screen Negative Crossmatch See Detail [facility] Medical History (Updated 02/03/23 @ 05:33 by Arnav Reyes MD) Depression Cognitive deficits 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 (BMI) of 19.9 or less in adult retirement (current) use of 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/antiplatelets Hyperlipemia Other lack of coordination Age-related osteoporosis without current pathological fracture Polyosteoarthritis, unspecified Muscle weakness Difficulty in walking, not elsewhere classified Insomnia Unspecified dementia, unspecified severity, without behavioral disturbance, psychotic disturbance, mood disturbance, and anxiety Unspecified protein-calorie malnutrition Dysphagia, oropharyngeal phase Dysarthria following cerebral infarction Memory deficit following cerebral infarction Dysphagia following cerebral infarction Hemiplegia and hemiparesis following cerebral infarction affecting left non- dominant side Osteoarthritis Seasonal allergies Depression (~1999) Headache Osteoporosis Osteopenia Mumps Measles Chicken pox Recurrent sinusitis Fecal incontinence (~1999) Collagenous colitis (~2003) Breast cancer (~2001) Surgical History (Updated 02/05/23 @ 11:02 by Smita Rizo PA-C) Presence of artificial knee joint, bilateral Social History household members: significant other Smoking Status: Never smoker second hand exposure: No alcohol intake: current substance use type: does not use Assessment & Plan Post-op Assessment and plan (1) Status post hip surgery: Assessment and Plan narrative: Currently on ASA BID for VTE prophylaxis; ok to restart Plavix today. Return to SNF when medically stable per hospitalist service. WBAT to LLE. F/u in office in 2 weeks for staple removal, wound check. If it is too difficult to transport patient, staple removal may be done at SNF and pt should follow up w/ Dr Camp in 6 weeks for repeat imaging. Postoperative Procedures: Procedures Operation Date: 02/03/23 17:45 Actual Procedure Side Surgeon p Intramedullary Nailing Femur Left Mark Camp MD Postoperative day: 2 Quality VTE Deep Vein Thrombosis/Pulmonary Embolism Present on Admission: No
--- NOTE | 2023-02-05 12:20 | CM.DPNOTE ---
Estefany requested me to call [facility] transport for pt. to go back to [facility]. There is no transportation operations manager for today. I spoke to Abhilash at Ambulance and arranged 1430 transport. Es Appiah [employer] Data Analyst.
--- NOTE | 2023-02-05 12:47 | PM.DS.1 ---
History of Present Illness History of Present Illness Date Patient Seen: 02/03/23 Chief complaint: LT INTERTROCHANERIC FEMUR FRACTURE/DISPLACED Narrative: This 87-year-old female had a cerebrovascular accident approximately a month ago. She had been staying in a nursing facility. She had a fall there and was seen at an outside hospital on January 24. On that day CT scan was obtained which demonstrated a fracture of the proximal femur. She was told that this was a nondisplaced greater trochanter fracture and was instructed to limit her weight-bearing. She had worsening pain following this and re-presented to our hospital for evaluation. She was found to have a displaced intertrochanteric femur fracture. She reports that prior to her cerebrovascular accident she did not use ambulatory aids. She has overall had fairly good health. She has been admitted here to the Medical Service. She complains of pain in the left hip which is worsened by any movement particularly hip extension and somewhat alleviated by rest Discharge Providers Provider Date of admission: 02/03/23 00:18 Discharge Date: 02/05/23 Primary care physician: Buster Rios MD Consults: 02/03/23 00:16 Consult to Orthopedic Surgery Stat Comment: Consulting Provider: Pat Bucio Reason for consultation: hip fracture Has provider been notified: Yes 02/03/23 01:09 Consult to Dietitian, Adult Routine Comment: Reason For Exam: weight loss >6#s and severe decrease in appetite 02/03/23 21:27 Consult to Discharge Planning Routine Comment: Consult to Physical Therapy Evaluate & Treat Comment: Physician Instructions: Evaluate and Treat Discharge provider: Troy Goldberg DO Summary Hospital Course Discharge Diagnosis: (1) Intertrochanteric fracture of left femur: Status: Acute Plan: -/sp OR on 04/05 -management per ortho -likely needs SNF (2) Hypokalemia: Status: Acute Plan: Severe, GI loses - chronic lose stool from collagenous collitis. Suplemented iv and PO - monitored lytes - not clear if colitis getting worse or she just did not have enough of KCl - continuing budesonide (3) Acute ischemic right MCA stroke: Status: Acute Plan: statin, ASA and Plavix. aspirin BID ordered hold plavix for now, given aspirin bid ordered and drop in hemoglobin (4) Acute left hemiparesis: Status: Acute Plan: Arm affected more then the leg. PT, OT (5) Cognitive deficits: Status: Acute Plan: on Donepezil at home. Possibly vascular, apparently worsened after the stroke (6) Impaired mobility and ADLs: Status: Acute Plan: PT, OT, supportive care (7) Depression: Status: Acute Plan: Wellbutrin 150 mg bid, Lexapro 15 mg hs Assessment & Plan narrative: #Anemia -expected post-operative -continue to monitor -stable Hospital Course: Admitted for hip fracture which was repaired. Placed on ASA 81 BID so home plavix held. Discharged to SNF. Exam Vital Signs (past 8 hours): - 02/05/23 08:30 Temperature 100.0 F H Pulse Rate 90 Respiratory Rate 16 Blood Pressure 131/55 L Pulse Oximetry 95 Oxygen Flow Rate 0 Oxygen Delivery Method Nasal Cannula Oxygen Flow Rate 0 Narrative Exam Narrative: GEN: NAD CV: regular rate and rhythm PULM: clear bilaterally EXT: left leg bandaged NEURO: dysarthria noted, left sided weakness Objective Labs 02/05/23 04:50 02/05/23 04:50 Labs: Laboratory Results - last 24 hr 02/02/23 02/04/23 02/05/23 21:48 18:32 04:50 WBC 11.3 H 10.8 RBC 2.30 L 2.91 L Hgb 7.0 L 8.5 L Hct 20.4 L* 24.9 L MCV 88.7 85.6 D MCH 30.4 29.4 MCHC 34.3 34.4 RDW 13.5 14.9 H Plt Count 280 231 Sodium 134 L Potassium 3.0 L Chloride 102 Carbon Dioxide 30 BUN 22 H Creatinine 0.68 Estimated GFR > 60 BUN/Creatinine Ratio 32.4 H Glucose 95 Calcium 8.6 Magnesium 1.7 Blood Type A Positive Antibody Screen Negative Crossmatch See Detail [facility] Medical History (Updated 02/03/23 @ 05:33 by Arnav Reyes MD) Depression Cognitive deficits 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 (BMI) of 19.9 or less in adult 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 of 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/antiplatelets Hyperlipemia Other lack of coordination Age-related osteoporosis without current pathological fracture Polyosteoarthritis, unspecified Muscle weakness Difficulty in walking, not elsewhere classified Insomnia Unspecified dementia, unspecified severity, without behavioral disturbance, psychotic disturbance, mood disturbance, and anxiety Unspecified protein-calorie malnutrition Dysphagia, oropharyngeal phase Dysarthria following cerebral infarction Memory deficit following cerebral infarction Dysphagia following cerebral infarction Hemiplegia and hemiparesis following cerebral infarction affecting left non-dominant side Osteoarthritis Seasonal allergies Depression (~1999) Headache Osteoporosis Osteopenia Mumps Measles Chicken pox Recurrent sinusitis Fecal incontinence (~1999) Collagenous colitis (~2003) Breast cancer (~2001) Surgical History (Updated 02/05/23 @ 11:02 by Smita Rizo PA-C) Presence of artificial knee joint, bilateral Social History household members: significant other Smoking Status: Never smoker second hand exposure: No alcohol intake: current substance use type: does not use Discharge Plan Discharge Plan Patient Disposition: SNF Other facility: [facility] Discharge orders & Medications Prescriptions: New aspirin 81 mg Tablet,Delayed Release (Dr/Ec) 81 mg PO BID 28 Days Qty: 56 0RF oxycodone-acetaminophen [Percocet] 5-325 mg tablet 1 tab PO Q4-6H PRN (Reason: pain) Qty: 20 0RF potassium chloride 20 mEq tablet extended release 20 meq PO DAILY Qty: 30 0RF Continued budesonide 3 mg capsule,delayed,extend.release See Rx Instructions .ROUTE .COMPLEX Qty: 90 0RF Dose Instruction: TAKE 1 CAPSULE BY MOUTH ONCE DAILY. MAY INCREASE TO 3 CAPSULES DAILY FOR 12 WEEKS DURING EXACERBATION. Patient Comments: Pt takes for collagenous colitis Rx Instructions: TAKE 1 CAPSULE BY MOUTH ONCE DAILY. MAY INCREASE TO 3 CAPSULES DAILY FOR 12 WEEKS DURING EXACERBATION. Currently taking 1 capsule daily escitalopram oxalate 10 mg tablet 15 mg PO DAILY atorvastatin 40 mg Tablet 40 mg PO BEDTIME acetaminophen [Tylenol] 325 mg Tablet 650 mg PO Q8H PRN (Reason: Pain, Mild) Rx Instructions: NTE 3000 mg APAP daily from all sources donepezil 5 mg Tablet 5 mg PO DAILY polyethylene glycol 3350 [Miralax] 17 gram Powder In Packet 17 g PO DAILY PRN (Reason: Constipation) Rx Instructions: Give 17 gram by mouth as needed for bowel protocol after 3 days of no BM initiate on day shift. Mix with 8 oz of liquid. loperamide 2 mg Tablet 2 mg PO QID MDD 4 PRN (Reason: Diarrhea) melatonin 3 mg Tablet 6 mg PO BEDTIME mineral oil Enema 1 ea WI DAILY PRN (Reason: Constipation) Rx Instructions: Insert 1 unit rectally as needed for bowel care if dulcolax suppository not effective initiate on 4th day evening shift on no BM. Notify MD if no results bisacodyl [Dulcolax (bisacodyl)] 10 mg Suppository 10 mg WI DAILY PRN (Reason: Constipation) Rx Instructions: Insert 1 suppository rectally as needed for bowel care if senna not effective initiate on 4th day of no BM bupropion HCl 75 mg Tablet 150 mg PO BID Rx Instructions: Takes twice a day (0800, 1600) baclofen 5 mg 5 mg PO Q8H PRN (Reason: Muscle Spasms) ondansetron 4 mg Tablet,Disintegrating 4 mg translingual Q8H PRN (Reason: Nausea/vomiting) sennosides [senna] 8.6 mg Tablet 17.2 mg PO DAILY PRN (Reason: Constipation) Rx Instructions: Give 2 tablets by mouth as needed for bowel care if miralax not effective initiate on evening shift of 3rd day of no BM Discontinued clopidogrel 75 mg Tablet 75 mg PO DAILY aspirin [Adult Low Dose Aspirin] 81 mg Tablet,Delayed Release (Dr/Ec) 81 mg PO QAM oxycodone 5 mg Tablet 5 mg PO Q4H PRN (Reason: Pain management) Follow up/Referrals: Buster Rios MD [Primary Care Provider] - Mark Camp MD [Physician] - 2 Weeks (Follow up w/ ortho KATHLEEN or Dr Camp in 2 weeks for staple removal and wound check. If it is too difficult to transport pt for this visit, may remove maggie at SNF. Follow up w/ Dr Camp in 6 weeks for repeat imaging and symptom check.) Diet/Activity/Treatments Diet: Regular Liquid consistency: Normal/Thin Activity: Weight bearing as tolerated to left leg. Cold/Heat Therapy: Ice to hip as needed for pain. Skin/Wound/Dressing Care Dressing: Dressing can be removed and replaced as needed. It is a Xeroform, 4 x 4, Tegaderm. Special Rehabilitation Services Reason for rehabilitation: Post-operative therapy Rehab type: Physical therapy and Occupational therapy Visit Report/Discharge Packet Stand Alone Forms: Patient Portal/API Discharge Data Primary Care Provider: Buster Rios Quality VTE Deep Vein Thrombosis/Pulmonary Embolism Present on Admission: No
[2023-02-05 13:49] VITALS: BP 108/53; PULSE 81; RESP 16; TEMP 37.1; O2SAT 94
--- NOTE | 2023-02-05 14:42 | CM.DPNOTE ---
DC Note Attempted to reach Anastasia at [facility] this morning- eventually spoke with Mark at [facility] who accepted patient for admission today. Report number was P# [phone] op 1 F# [phone]. YESSENIA Gunn updated. SARAH Suggs, kindly agreed to arranging BLS through [facility], deemed the safest mode of transport by therapy team. BLS scheduled for 1430 machine pecan picker. BLS form completed and signed by Dr Goldberg and placed on patient's chart w/face sheet. Updated patient, spouse and son, all agreeable to discharge plan. Orders faxed. No PASRR needed as patient was returning to [facility]. Plan: Discharge to [facility] today via BLS. All aware and agreeable to plan. JW
--- NOTE | 2023-02-05 19:58 | PC.NURSE ---
Transfer: Pt transfered to [facility]. Report given to Shelby admitting nurse at facility. Reviewed hospital course, dressing changed from large bulky dressing to aquacel which is to stay on until she is seen in the clinic in 2 weeks, Pt has been at their facility and they know her. She is disoriented but is at her usual baseline per family. Has not been able to get to chair yet with 2 people so oniel has been left in at this time. Pt did receive a unit of blood for a low HH. Reviewed labe values. K+ is down as well and she received 2 doses of oral k+. Mag borderline low and recieved mag as well oral. Pt was pain medicated prior to leaving. Reviewed ADl's and diet. Questions answered. Pt d/c to [facility] per s transport. Shelby may call back any time for more information if needed. Transport crew here. Given report. Pt transfered to [facility]. No problems noted at time of transfer.
--- NOTE | 2023-02-08 17:22 | PC.NURSE ---
Late Entry 0.5 mg Dilaudid given 02/04/23 at 10:50 for reported hip pain 10/22 with upcoming PT session. Error in saving of documentation; given dose and time reported on handoff later in shift.
== END 2023-02-05 13:55 | DRG 481 ==
LOC: ED 02-03 00:14 → AC 02-03 00:19
PROVIDERS: Internal Medicine; Orthopaedic Surgery Adult Reconstructive Orthopaedic Surgery; Admitting Provider Internal Medicine; Emergency Provider Emergency Medicine; PCP Student in an Organized Health Care Education/Training Program; Referring Provider Emergency Medicine; Visit Provider Internal Medicine
PROC: 0QS906Z Reposition Left Femoral Shaft with Intramedullary Internal Fixation Device, Open Approach (ICD-10-PCS; CPT 27245; principal; 2023-02-03 17:45)
DX: S72.142A Displaced intertrochanteric fracture of left femur, initial encounter for closed fracture (principal); I69.954 Hemiplegia and hemiparesis following unspecified cerebrovascular disease affecting left non-dominant side; E87.6 Hypokalemia; F32.A Depression, unspecified; I69.919 Unspecified symptoms and signs involving cognitive functions following unspecified cerebrovascular disease; E78.5 Hyperlipidemia, unspecified; D64.89 Other specified anemias; W19.XXXA Unspecified fall, initial encounter; Z74.09 Other reduced mobility
CPT/HCPCS: 36415; 36430; 72192; 73501; 73502; 76000; 80048; 80053; 81001; 83690; 83735; 85025; 85027; 85610; 86850; 86900; 86901; 87077; 87086; 87147; 87186; 87507; 96365; 96375; 97162; 97530; 99284; 99285; P9016; J0171; J0690; J0696; J1100; J1170; J2270; J2704; J3010

== ENCOUNTER → 2023-08-05 10:29 | Outpatient (CLI) | payer MEDICARE, OTHER, SELFPAY ==
[2023-02-03 01:05] VITALS: BMI 18.3
--- NOTE | 2023-08-05 10:32 | DI.MRI.S_ITS ---
PROCEDURE: MR AB PANCREATIC/MRCP PROTOCOL INDICATIONS: PANCREATITIS,ACUTE,SEVERE TECHNIQUE: Coronal HASTE through the abdomen, axial 2-D FLASH in- and [id number], and breath-hold T2 FSE with fat saturation through the biliary system and pancreas. Oblique coronal and axial thin-slice HASTE, radial thick-slab HASTE centered on the extrahepatic bile ducts. Intravenous secretin: Not requested. COMPARISON: [facility], RG, CT ABDOMEN/PELVIS WITH CONTRAST, 01/24/2023, 6:42. FINDINGS: Image quality: Moderate motion artifact Lower chest: Lungs are not well evaluated on MRI. No basal effusions. Liver: No suspicious hypervascular lesion Gallbladder and biliary system: Unremarkable gallbladder. CBD is prominent, probably senescent, measuring about 7 mm. Pancreas: The pancreatic parenchyma is only mildly atrophic previously identified possible calcifications may have represented adjacent splenic artery vascular calcifications. Ectatic pancreatic duct at the head measuring about 5 mm, no obstructing mass is seen. There may be a small stricture at the neck, but without significant upstream ductal dilation. In the inferior body, there is a cystic lesion that measures 1.1 cm (3/12). No suspicious features such as adjacent ductal dilation or solid enhancing component Spleen: Nonenlarged Adrenals: No discrete nodules Kidneys: Scattered cysts. No hydronephrosis. No definite solid mass. Vessels and lymph nodes: No abdominal aortic aneurysm. No pathologic lymph nodes by size criteria. Bowel and peritoneum: No evidence of pathologic ascites or small bowel obstruction. There is moderate fecal loading. Body wall: Unremarkable Bones: Degenerative changes. IMPRESSION: Mildly atrophic pancreatic parenchyma. Mildly ectatic pancreatic duct at the head measuring 5 mm, without obstructing mass. Short stricture is seen at the pancreatic neck, without upstream ductal dilation. 1.1 cm inferior pancreatic body cystic lesion, possibly an IPMN versus sequelae of prior inflammation. Further follow-up imaging may be obtained allowing for patient's age in 1-2 years at clinical discretion clinical discretion. Other findings above Moderate motion artifact on this MRI. Dictated by: Cameron Munoz M.D. on 08/05/2023 at 13:02 Approved by: Cameron Munoz M.D. on 08/05/2023 at 13:10
== END ==
PROVIDERS: Referring Provider Internal Medicine Gastroenterology; Visit Provider Internal Medicine Gastroenterology
DX: K86.2 Cyst of pancreas (principal); K86.9 Disease of pancreas, unspecified; N28.1 Cyst of kidney, acquired
CPT/HCPCS: 74183; A9579